=== PATIENT | female | born 1930 | race Caucasian/White ===

== ENCOUNTER 2016-08-23 19:05 | Inpatient (IN) | payer MEDICARE, OTHER ==
[2016-08-23 19:27] LABS: Hematocrit 34 % (35-47); Mean Corpuscular HGB Conc 32 g/dl (31-36); Mean Corpuscular Hemoglobin 28 pg (27-31); Mean Corpuscular Volume 88 fL (80-97); Mean Platelet Volume 8 um3 (7.4-10.4); Red Blood Count 3.87 10^6/ul (4.0-5.4); Red Cell Distribution Width 14 % (10.5-15); White Blood Count 8.1 10^3/ul (3.5-10.8)
--- NOTE | 2016-08-23 19:29 | RAD ---
INDICATION: Aphasia COMPARISON: CT of the brain dated April 12, 2012 TECHNIQUE: Contiguous axial sections of the brain were obtained from the skull base to the vertex without contrast. FINDINGS: There is a stable focus of and supplemented malacia involving the right frontal lobe measuring 3.4 x 3.5 cm, slightly larger than the 2.8 x 2.9 cm measured on the previous CT examination. At the medial aspect of the left frontal lobe there is an area of cortical encephalomalacia measuring 1.7 cm that was not seen on the previous CT examination. At the anterior aspect of the right insular gyri (image 12 of 32) there is an 8 mm hypoattenuating focus stable compared to the previous CT examination. Elsewhere the everett-white matter differentiation appears to be adequately maintained. There is no hyperdense material to indicate acute intracranial hemorrhage. There is mild involutional changes of the ventricles and sulci somewhat appearance to the previous CT examination. Calcified atherosclerosis is noted at the left greater than right vertebral arteries and the bilateral petrous carotid arteries. No significant focal osseous abnormality is present. The visualized portion of the paranasal sinuses and mastoid air cells appear clear. IMPRESSION: There is a new 7 mm focus of cortical hypoattenuation involving the medial aspect of the left frontal lobe that was not seen on the 2012 CT of the brain that could represent an age indeterminant infarction. Chronic findings include stable areas of encephalomalacia and involutional changes. There is no acute intracranial hemorrhage identified. Findings were discussed with Dr. Landers over the telephone at 1925 hours on August 23, 2016.
[2016-08-23 19:42] LABS: Albumin 4.2 g/dL (3.2-5.2); BUN/Creatinine Ratio 28.8 (8-20); Calcium 9.8 mg/dL (8.6-10.3); EGFR African American 124.9 (>60); EGFR Non-African American 97.1 (>60); HDL Cholesterol 59.7 mg/dL; Potassium 3.8 mmol/L (3.5-5.0); Total Bilirubin 0.5 mg/dL (0.2-1.0); Total Protein 7.2 g/dL (6.4-8.9)
[2016-08-23 19:46] LABS: Troponin I 0.04 ng/mL (<0.04)
[2016-08-23 19:49] LABS: Urine Bacteria Absent (Absent); Urine Bilirubin Negative (Negative); Urine Glucose Negative (Negative); Urine Nitrite Negative (Negative)
[2016-08-23] MEDS ORDERED: Iohexol 350* (CONTRAST) 500 ML MDV IV ONE (19:57)
--- NOTE | 2016-08-23 19:57 | RAD ---
INDICATION: Aphasia COMPARISON: Similar chest x-ray dated July 28, 2010 TECHNIQUE: Single AP portable view of the chest was obtained. FINDINGS: Image quality is compromised due to the relative inferiority of a portable chest x-ray. Again seen is mild cardiomegaly similar in appearance to the previous chest x-ray. Also stable are coarse calcifications at the arch of the aorta. The lungs are grossly clear. There is evidence of bronchiectatic dilatation of the medium and small airways similar to the previous chest x-ray. There is no evidence of a large pleural effusion. Visualized bones are normal for the patient's age. IMPRESSION: No radiographic evidence for acute cardiopulmonary abnormality on this portable chest x-ray.
[2016-08-23] MEDS ORDERED: Ondansetron INJ* 2 MG/ML VIAL ONE (20:20)
[2016-08-23] MEDS ORDERED: Ondansetron INJ* 2 MG/ML VIAL IV ONE (20:23)
--- NOTE | 2016-08-23 20:48 | RAD ---
CPT II: CPT II Codes: 3100F INDICATION: Aphasia COMPARISON: Similar CTA of the head and neck dated July 28, 2010 TECHNIQUE: A CT angiogram of the head and neck was performed with 80 cc of Omnipaque 350. Contiguous axial sections were obtained from the thoracic inlet through the [place] of [place]. Images were reconstructed in the sagittal, coronal planes and in a 3-D volume rendered format. The distal cervical internal carotid artery diameter is used as the denominater for stenosis measurement. CTA NECK: There is calcified atherosclerosis at the arch of the aorta and proximal portions of the great vessels. The bilateral common carotid arteries are adequately patent. There is left greater than right calcified atherosclerosis at the carotid bulbs. Right: After the carotid bulb the right internal carotid artery measures 3.3 mm in diameter. More superiorly the artery measures 3.8 mm in diameter. There is indicates no significant stenosis. Left: Just beyond the carotid bulb the left internal carotid artery measures 6 mm at its narrowest portion and 6 mm more distally. This indicates no pathologic stenosis of the left internal carotid artery. The right vertebral artery is diminutive relative to the left but both arteries appear patent throughout their entire lengths continuing into the diminutive but patent basilar artery. CTA of the brain: The internal carotid, anterior and middle cerebral arteries appear are patent without high grade stenosis or occlusion. The vertebral, basilar and posterior cerebral arteries appear patent without high grade stenosis or occlusion. A right posterior communicating and anterior communicating arteries are absent. No focal luminal filling defect, aneurysm or vascular malformation is seen. IMPRESSION: 1. No acute abnormality on CT angiography of the head and neck. 2. According to thoracic criteria there is no pathologic carotid artery stenosis bilaterally.
[2016-08-23] MEDS ORDERED: Aspirin TAB* 325 MG PO ONE (20:50)
--- NOTE | 2016-08-23 20:56 | ED ---
Alexandre Quesada Erika, scribed for Bahman Landers MD on 08/23/16 at 1930 . Neurological HPI - HPI Summary HPI Summary: Patient is an 86-year-old female presenting to the ED with a CC of slurred speech. Pt lives alone, but states her last known well time to be 15:00 today. Per EMS, pt called her nephew around 18:30 today and he could not understand what she was saying and called 911. EMS and nephew arrived to the house at the same time. EMS noted slurred speech and a right-sided facial droop, as well as some right-sided weakness. - History of Current Complaint Stated Complaint: POSSIBLE STROKE Last Known Well Date: 15:00 08/23/2016 Hx Obtained From: Patient, EMS Onset/Duration: Started hours ago, Still Present Timing: Constant Current Severity: Moderate Character: Motor Weakness - R side, Impaired Speech, Other: - R sided facial droop Aggravating: Nothing Alleviating: Nothing Associated Signs and Symptoms: Positive: Impaired Speech - Allergy/Home Medications Allergies/Adverse Reactions: Allergies Allergy/AdvReac Type Severity Reaction Status Date / Time No Known Allergies Allergy Verified 09/17/14 08:55 PMH/Surg Hx/FS Hx/Imm Hx Cardiovascular History: Reports: Hx Hypertension - WELL CONTROLLED, Other Cardiovascular Problems/Disorders Musculoskeletal History: Reports: Hx Arthritis - HANDS Sensory History: Reports: Hx Cataracts, Hx Contacts or Glasses Denies: Hx Hearing Aid Opthamlomology History: Reports: Hx Cataracts, Hx Contacts or Glasses Neurological History: Reports: Hx Migraine - RARELY Psychiatric History: Reports: Hx Anxiety - ON DAILY MEDS, Hx Depression - Surgical History Surgery Procedure, Year, and Place: LEFT BREAST MASS, BENIGN [facility]. 09/27 LEFT CATARACT [facility] Hx Anesthesia Reactions: No - Family History Family History: Denies FHx anesthesia reaction - Social History Lives: Alone Alcohol Use: None Hx Substance Use: No Substance Use Type: Reports: None Hx Tobacco Use: No Smoking Status (MU): Never Smoked Tobacco Have You Smoked in the Last Year: No Review of Systems Positive: Other - R sided facial droop Positive: Weakness - R side, Slurred Speech All Other Systems Reviewed And Are Negative: Yes Physical Exam Triage Information Reviewed: Yes Vital Signs On Initial Exam: Initial Vitals Pulse Ox 98 08/23/16 19:06 Vital Signs Reviewed: Yes Appearance: Positive: Well-Appearing, No Pain Distress Skin: Positive: Warm, Skin Color Reflects Adequate Perfusion, Dry Head/Face: Positive: Normal Head/Face Inspection Eyes: Positive: EOMI, MATEO ENT: Positive: Normal ENT inspection Neck: Positive: Supple, Nontender Respiratory/Lung Sounds: Positive: Clear to Auscultation, Breath Sounds Present Cardiovascular: Positive: RRR Abdomen Description: Positive: Nontender, Soft Bowel Sounds: Positive: Present Neurological: Positive: Other - See NIH Stroke Scale Psychiatric: Positive: Affect/Mood Appropriate Diagnostics - Vital Signs Vital Signs Pulse Ox 08/23/16 19:06 98 - Laboratory Lab Results: Lab Results 08/23/16 08/23/16 08/23/16 Range/Units 19:19 19:19 19:19 WBC 8.1 (3.5-10.8) 10^3/ul RBC 3.87 L (4.0-5.4) 10^6/ul Hgb 11.0 L (12.0-16.0) g/dl Hct 34 L (35-47) % MCV 88 (80-97) fL MCH 28 (27-31) pg MCHC 32 (31-36) g/dl RDW 14 (10.5-15) % Plt Count 337 (150-450) 10^3/ul MPV 8 (7.4-10.4) um3 Neut % (Auto) 72.9 (38-83) % Lymph % (Auto) 21.0 L (25-47) % Rankin % (Auto) 4.8 (1-9) % Eos % (Auto) 0.8 (0-6) % Baso % (Auto) 0.5 (0-2) % Absolute Neuts (auto) 5.9 (1.5-7.7) 10^3/ul Absolute Lymphs (auto) 1.7 (1.0-4.8) 10^3/ul Absolute Monos (auto) 0.4 (0-0.8) 10^3/ul Absolute Eos (auto) 0.1 (0-0.6) 10^3/ul Absolute Basos (auto) 0 (0-0.2) 10^3/ul Absolute Nucleated RBC 0 10^3/ul Nucleated RBC % 0 INR (Anticoag Therapy) 2.39 H (0.89-1.11) APTT 32.7 (26.0-36.3) seconds Sodium 138 (133-145) mmol/L Potassium 3.8 (3.5-5.0) mmol/L Chloride 102 (101-111) mmol/L Carbon Dioxide 27 (22-32) mmol/L Anion Gap 9 (2-11) mmol/L BUN 17 (6-24) mg/dL Creatinine 0.59 (0.51-0.95) mg/dL Est GFR ( Amer) 124.9 (>60) Est GFR (Non-Af Amer) 97.1 (>60) BUN/Creatinine Ratio 28.8 H (8-20) Glucose 119 H (70-100) mg/dL Lactic Acid (0.5-2.0) mmol/L Calcium 9.8 (8.6-10.3) mg/dL Total Bilirubin 0.50 (0.2-1.0) mg/dL AST 20 (13-39) U/L ALT 15 (7-52) U/L Alkaline Phosphatase 64 (34-104) U/L Troponin I 0.04 H* (<0.04) ng/mL Total Protein 7.2 (6.4-8.9) g/dL Albumin 4.2 (3.2-5.2) g/dL Globulin 3.0 (2-4) g/dL Albumin/Globulin Ratio 1.4 (1-3) Triglycerides 62 mg/dL Cholesterol 227 mg/dL LDL Cholesterol 155 mg/dL HDL Cholesterol 59.7 mg/dL Urine Color Urine Appearance Urine pH (5-9) Ur Specific Spencer (1.010-1.030) Urine Protein (Negative) Urine Ketones (Negative) Urine Blood (Negative) Urine Nitrate (Negative) Urine Bilirubin (Negative) Urine Urobilinogen (Negative) Ur Leukocyte Esterase (Negative) Urine WBC (Auto) (Absent) Urine RBC (Auto) (Absent) Ur Squamous Epith Cells (Absent) Urine Bacteria (Absent) Urine Glucose (Negative) Blood Type Antibody Screen 08/23/16 08/23/16 08/23/16 Range/Units 19:19 19:19 19:30 WBC (3.5-10.8) 10^3/ul RBC (4.0-5.4) 10^6/ul Hgb (12.0-16.0) g/dl Hct (35-47) % MCV (80-97) fL MCH (27-31) pg MCHC (31-36) g/dl RDW (10.5-15) % Plt Count (150-450) 10^3/ul MPV (7.4-10.4) um3 Neut % (Auto) (38-83) % Lymph % (Auto) (25-47) % Rankin % (Auto) (1-9) % Eos % (Auto) (0-6) % Baso % (Auto) (0-2) % Absolute Neuts (auto) (1.5-7.7) 10^3/ul Absolute Lymphs (auto) (1.0-4.8) 10^3/ul Absolute Monos (auto) (0-0.8) 10^3/ul Absolute Eos (auto) (0-0.6) 10^3/ul Absolute Basos (auto) (0-0.2) 10^3/ul Absolute Nucleated RBC 10^3/ul Nucleated RBC % INR (Anticoag Therapy) (0.89-1.11) APTT (26.0-36.3) seconds Sodium (133-145) mmol/L Potassium (3.5-5.0) mmol/L Chloride (101-111) mmol/L Carbon Dioxide (22-32) mmol/L Anion Gap (2-11) mmol/L BUN (6-24) mg/dL Creatinine (0.51-0.95) mg/dL Est GFR ( Amer) (>60) Est GFR (Non-Af Amer) (>60) BUN/Creatinine Ratio (8-20) Glucose (70-100) mg/dL Lactic Acid 0.9 (0.5-2.0) mmol/L Calcium (8.6-10.3) mg/dL Total Bilirubin (0.2-1.0) mg/dL AST (13-39) U/L ALT (7-52) U/L Alkaline Phosphatase (34-104) U/L Troponin I (<0.04) ng/mL Total Protein (6.4-8.9) g/dL Albumin (3.2-5.2) g/dL Globulin (2-4) g/dL Albumin/Globulin Ratio (1-3) Triglycerides mg/dL Cholesterol mg/dL LDL Cholesterol mg/dL HDL Cholesterol mg/dL Urine Color Yellow Urine Appearance Clear Urine pH 5.0 (5-9) Ur Specific Spencer 1.020 (1.010-1.030) Urine Protein Negative (Negative) Urine Ketones Negative (Negative) Urine Blood 1+ H (Negative) Urine Nitrate Negative (Negative) Urine Bilirubin Negative (Negative) Urine Urobilinogen Negative (Negative) Ur Leukocyte Esterase Negative (Negative) Urine WBC (Auto) Absent (Absent) Urine RBC (Auto) 2+(6-10/hpf) H (Absent) Ur Squamous Epith Cells Present H (Absent) Urine Bacteria Absent (Absent) Urine Glucose Negative (Negative) Blood Type O Positive Antibody Screen Negative Result Diagrams: 08/23/16 19:19 08/23/16 19:19 Lab Statement: Any lab studies that have been ordered have been reviewed, and results considered in the medical decision making process. - Radiology CXR Radiology Interpretation Completed By: Radiologist - IMPRESSION: No radiographic evidence for acute cardiopulmonary abnormality on this portable chest x-ray. - CT CT Brain CT Interpretation Completed By: Radiologist - IMPRESSION: There is a new 7 mm focus of cortical hypoattenuation involving the medial aspect of the left frontal lobe that was not seen on the 2012 CT of the brain that could represent an age indeterminant infarction. Chronic findings include stable areas of encephalomalacia and involutional changes. There is no acute intracranial hemorrhage identified. Findings were discussed with Dr. Landers over the telephone at 1925 hours on August 23, 2016. - EKG 19:14 Cardiac Rate: NL - at 66 bpm EKG Rhythm: Sinus Rhythm Ectopy: None EKG Interpretation: Borderline left axis deviation. Flipped Ts V5-V6 NIH Scale - NIH Scale Level of Consciousness: Alert/Keenly Responsive Ask Patient the Month and His/Her Age: Both Correct Ask Pt to Open/Close Eyes and Marker Machine/Release Non-Paretic Hand: Both Correctly Best Gaze (Only Horizontal Eye Movement): Normal Visual Field Testing: No Visual Loss Facial Paresis-Pt to Smile & Close Eyes or Grimace Symmetry: Partial Paralysis - right Motor Function - Right Arm: Effort Against Spencer Motor Function - Left Arm: No Drift-Holds 10 Seconds Motor Function - Left Leg: No Drift-Holds 10 Seconds Sensory (Use Pinprick to Test Arms/Legs/Trunk/Face): Pinprick Less on Affected Best Language (Describe Picture, Name Items): Severe Aphasia Dysarthria (Read Several Words): Unintelligible or Mute Extinction and Inattention: No Abnormality Course/Dx - Course Assessment/Plan: DISCUSSED WITH DR FRENCH. DISCUSSED RESULTS WITH PATIENT/SON. ADMIT HOSPITALIST STABLE. - Diagnoses Provider Diagnoses: CVA (cerebral vascular accident) - Physician Notifications Discussed Care of Patient With: Dr. French (neurology) at 19:10 - discussed pt history and recommendations. Dr. Espinal (radiology) at 19:25 - discussed imaging results Discharge - Discharge Plan Condition: Stable Disposition: ADMITTED TO [facility] Referrals: Mireya Finnegan MD [Primary Care Provider] - The documentation as recorded by the Alexandre william Erika accurately reflects the service I personally performed and the decisions made by me, Bahman Landers MD.
[2016-08-23] MEDS ORDERED: Dextrose 50% Syringe 50 ML* 25 GM/50 ML SYRINGE IV PUSH PRN (21:17)
[2016-08-23] MEDS: NS 0.9% 1000 ML* 1,000 ML IV SCH (22:40)
--- NOTE | 2016-08-23 23:10 | HP ---
HOSPITAL MEDICINE HISTORY AND PHYSICAL: DATE OF ADMISSION: 08/23/16 PRIMARY CARE PHYSICIAN: Dr. Mireya Finnegan. ATTENDING PHYSICIAN: Dr. Lorenzo Edwards *(dictation provided by Valerie Castillo NP). CHIEF COMPLAINT: Difficulty speaking and right-sided weakness. HISTORY OF PRESENT ILLNESS: Ms. Martinez is an 86-year-old female with a past medical history of atrial fibrillation, atrial septal defect, diet-controlled diabetes, and hypertension, who presents today to the hospital with concern for difficulty speaking and right-sided weakness. Per the report from the patient' s nephew, who is her healthcare proxy, he was called by her at approximately 06: 20 and while on the phone with her he noted that she was speaking unintelligibly. The patient's nephew states that he knew that she had a stroke in the past with similar symptoms and immediately was concerned for stroke. He went to her home and then drove her to the emergency room. While at the home, he noted that she was walking normally but that her right hand was not functioning properly and she was unable to hot die picker the phone. She was unable to speak clearly or make her needs known. He states the last time he saw her normal was yesterday, but since her speech has improved somewhat since being in the emergency room she seems to have indicated to him that she went to get her hair done today around 2 o'clock and was normal at that point. In the emergency room, Ms. Martinez had concern for stroke with aphasia. She was initially speaking gibberish but over the course of the time in the ED, she has been able to say several words in a row, although she is not able to make sentences or make her needs known clearly. She has continued impairment in her right credit counselor but her arm and leg are otherwise intact in terms of strength and sensation. She has CT of the brain, which shows the following: "There is a new 7 mm focus of cortical hypoattenuation involving the medial aspect of the left frontal lobe." She also went on for a head CTA, which showed no acute abnormality. The patient was given aspirin per rectum and Hospital Medicine was called regarding admission. Dr. French has also been notified of this admission as well for consultation tomorrow. PAST MEDICAL HISTORY: 1. Hypertension. 2. Atrial septal defect with left to right shutting. 3. History of CVA with aphasia, July 2010. 4. Chronic Coumadin therapy secondary to previous stroke with AFib. 5. Hyperlipidemia. 6. History of depression, anxiety. 7. Aortic sclerosis. 8. Mitral insufficiency. 9. Type 2 diabetes, diet controlled. 10. Osteoarthritis. 11. Varicose veins. 12. Peripheral vascular disease. 13. Low back pain. 14. Stress incontinence. 15. Indication for pacemaker placement as the patient states Dr. Corona has instructed to her that she should follow up with this. 16. Previous cataract surgery of the left eye. 17. Status post left breast cyst excision in 1994 benign. MEDICATIONS: 1. Rosuvastatin 5 mg p.o. daily. 2. Digoxin 0.125 mg p.o. daily. 3. Lexapro 10 mg p.o. daily. 4. Metoprolol tartrate 12.5 mg p.o. b.i.d. 5. Warfarin 5 mg p.o. q.a.m. ALLERGIES: No known drug allergies. FAMILY HISTORY: Unobtainable. SOCIAL HISTORY: No report of alcohol, tobacco, or drug use per the patient's nephew. He is the healthcare proxy. REVIEW OF SYSTEMS: Unobtainable. No report of acute illnesses recently per the nephew. PHYSICAL EXAMINATION GENERAL: Ms. Martinez is lying in the bed. She is in no acute distress. LUNGS: Clear to auscultation bilaterally with no accessory muscle use and good aeration. HEART: S1, S2. No murmur, rub, or gallop and regular. ABDOMEN: Soft, nontender with bowel sounds positive x4. EXTREMITIES: No cyanosis or edema. NEUROLOGIC: She is alert. Orientation is difficult to completely assess but she seems to interact appropriately though she is not able to clearly make her thoughts known. She is able to say 2 to 3 words in a row as she begins to speak and then she trails off with unclear speech. The patient has good strength in upper extremities except for the right hand where she is unable to straighten the fingers and has poor credit counselor. The right lower extremity and left lower extremity are intact. She has some right-sided facial droop. SKIN: Intact. DIAGNOSTIC STUDIES: Sodium 138, potassium 3.8, chloride 102, serum bicarbonate 27, BUN 17, creatinine 0.59, glucose 119, lactic acid 0.9. Troponin 0.04. Triglycerides 62, cholesterol 227, LDL 155, HDL 59.7. WBC 8.1, hemoglobin 11.0, hematocrit 34, platelet count 337. INR 2.39. Urine shows no evidence of infection. CT brain readings which is as follows: "There is a new 7 mm focus of cortical hypoattenuation involving the medial aspect of the left frontal lobe that is not seen on 2012 CT of the brain that could represent age indeterminate infarction." CTA of the head is as follows: "No acute abnormality of CT angiograph of the head and neck according to NASCET criteria, there is no pathological carotid artery stenosis bilaterally." Chest x-ray: "No radiographic evidence for acute cardiopulmonary abnormality on this portable chest x-ray." EKG showed sinus rhythm with no evidence of ischemia. ASSESSMENT: Ms. Martinez is an 86-year-old female with past medical history of atrial fibrillation with known atrial septal defect, hypertension, and history of diabetes as well as aphasia with stroke in 2009, who presents to the emergency room with dysphagia with some improvement as well as right hand weakness. Plans are for admission to the hospital for the followin. Cerebrovascular accident: The patient's symptoms are consistent with a cerebrovascular accident. She does show an area of hypoattenuation on the CT of the brain, but again the age on that is indeterminate. Her CTA of the head and neck is negative. Dr. French has been consulted and will see the patient tomorrow. In the meantime, MRI of the brain has been ordered. The patient will have telemetry monitoring. I do note the patient had a transthoracic echocardiogram in January 2016. She does have history of atrial septal defect per the record. I plan to reassess with repeat echocardiogram given the new symptoms of stroke and to evaluate for vegetation. I do note that her INR is at least at this point therapeutic. The patient has been given aspirin in the emergency room and will continue that per rectum for now until she passes the swallow eval. She will continue with her Coumadin. Cholesterol has been checked. We will continue with atorvastatin in substitute for rosuvastatin. I am checking hemoglobin A1c to further evaluate her risk factors. She will have speech, physical, and occupational therapy evaluations. 2. Elevated troponin. Her troponin on arrival was 0.04. I have no indication that this reflects acute coronary syndrome as she denies chest pain and her EKG shows no evidence of ischemia. I will cycle troponins and she will continue with telemetry monitoring as per above. In addition, she will have an echocardiogram as part of her stroke workup. 2. Hypertension: Continue metoprolol. 3. Atrial fibrillation: Continue digoxin. Continue warfarin. I do note that the patient states that Dr. Corona had recommended her for pacemaker placement. We will have to obtain records tomorrow to determine what the indication was there. At this point, her heart is in a sinus rhythm with a regular rate. 4. Type 2 diabetes: The patient is not currently on any outpatient medications. I am checking hemoglobin A1c. She will have lispro sliding scale, blood glucoses q.a.c. This can be discontinued if her blood glucose remains normal. 5. Code status: Full code. 6. DVT prophylaxis with warfarin with therapeutic INR. TIME SPENT: Approximately 60 minutes were spent on the admission of this patient; more than half the time was spent with her at the bedside reviewing the events leading up to this hospitalization, also with her nephew performing the physical examination, reviewing the plan of care. VALERIE CASTILLO NP CC: Dr. Corona; Dr. Mireya Finnegan * [id number]/[facility] #: [id number] KARIN
--- NOTE | 2016-08-24 00:40 | PN ---
Progress Note - Progress Note Note: Mrs Martinez is an 86F presenting with symptoms consistent for CVA. Case discussed with Rocio Castillo NP. Agree with assessment and management.
[2016-08-24 05:25] LABS: Hematocrit 32 % (35-47); Hemoglobin 10.5 g/dl (12.0-16.0); Mean Corpuscular HGB Conc 33 g/dl (31-36); Mean Corpuscular Hemoglobin 29 pg (27-31); Mean Corpuscular Volume 87 fL (80-97); Mean Platelet Volume 9 um3 (7.4-10.4); Red Blood Count 3.64 10^6/ul (4.0-5.4); Red Cell Distribution Width 14 % (10.5-15); White Blood Count 7.7 10^3/ul (3.5-10.8)
[2016-08-24 05:46] LABS: BUN/Creatinine Ratio 20.3 (8-20); Calcium 8.8 mg/dL (8.6-10.3); EGFR African American 124.9 (>60); EGFR Non-African American 97.1 (>60); Potassium 3.7 mmol/L (3.5-5.0)
[2016-08-24 05:50] LABS: Troponin I 0.06 ng/mL (<0.04)
[2016-08-24] MEDS: NS 0.9% 1000 ML* 1,000 ML IV SCH (06:20)
[2016-08-24] MEDS: Insulin LISPRO* 1 UNITS UNIT SUBCUT SCH ×3 (08:49→16:41)
[2016-08-24] MEDS ORDERED: Aspirin SUPP* 300 MG PR SCH ×2 (09:00→21:00)
[2016-08-24] MEDS ORDERED: Digoxin TAB* 0.125 MG PO SCH ×2 (09:00)
[2016-08-24] MEDS ORDERED: Metoprolol Tartrate TAB* 25 MG PO SCH ×2 (09:00→18:00)
[2016-08-24] MEDS: CMC:Rosuvastatin (NF) 5 MG TAB PO SCH (10:10)
[2016-08-24] MEDS: Citalopram TAB* 20 MG PO SCH (10:10)
[2016-08-24] MEDS: Metoprolol Tartrate TAB* 25 MG PO SCH (10:11)
--- NOTE | 2016-08-24 12:06 | ECHO ---
Patient: TREV VELASCO [facility] Rec#: [id number] : 1930 Date: 08/24/2016 Age: 86y Height: 152.4 cm / 60.0 in Weight: 63.05 kg / 139.0 lbs Sex: F Admit Date#: 08/23/2016 Referring: Valerie Castillo NP Reading: Rhianna Malagon MD [place] Bender: An Elliott RDCS CC: Mireya Finnegan MD Transthoracic Echocardiogram Findings History: A-fib,CVA 2009,ASD(L-R shunting),HTN,PVD,HLD,DM, aphasia noted 08/23/2016. Technical Comments: The study quality is good. Completed at 0852. Left Ventricle: The left ventricular chamber size is normal. Posterior wall hypertrophy is observed. There is normal left ventricular systolic function. The estimated ejection fraction is 55-60%. The assessment of diastolic function is non-diagnostic. Left Atrium: The left atrium is severely dilated. Right Ventricle: The right ventricular cavity size is normal. The right ventricular global systolic function is normal. Right Atrium: The right atrium is moderately dilated. There is a patent foramen ovale with predominant alxw-lm-vttmd shunting. Aortic Valve: The aortic valve is trileaflet. The aortic valve leaflets are moderately thickened. Systolic excursion of the aortic valve cusps is reduced. There is trace to mild aortic regurgitation. There is mild aortic stenosis. The highest aortic valve velocity was obtained with the standard probe from the A5C view. Mitral Valve: The mitral valve leaflets are moderately thickened. There is moderate mitral regurgitation. There is no evidence of mitral stenosis. Tricuspid Valve: The tricuspid valve leaflets are normal. There is mild to moderate tricuspid regurgitation. There is evidence that pulmonary hypertension may be underestimated. There is no tricuspid stenosis. Pulmonic Valve: The pulmonic valve appears normal. There is no evidence of pulmonic regurgitation. There is no pulmonic stenosis. Pericardium: The pericardium appears normal. Aorta: There is no dilatation of the ascending aorta. There is no dilatation of the aortic arch. There is no dilation of the aortic root. Pulmonary Artery: The main pulmonary artery appears normal. Venous: The inferior vena cava appears normal in size. There is a greater than 50% respiratory change in the inferior vena cava dimension. Conclusions Left ventricular posterior wall hypertrophy noted. There is normal left ventricular systolic function. The estimated ejection fraction is 55-60%. The right ventricular global systolic function is normal. There is mild aortic stenosis and mild aortic valve insufficiency with calcific sclerosis and decreased leaflet excursion. Mean gradient across the aortic valve is 11 mmHg, KASHMIR 1.6 cm2 (VTI). There is moderate mitral regurgitation, leaflets sclerotic with good excursion. There is mild to moderate tricuspid regurgitation. PA pressure 35 mmHg at a minimum, possibly underestimated. Coloer Doppler shows evidence of a patent foramen ovale with zjzv-mm-jihaz shunting. Compared with prior echo of February 03, 2016, ventricular hypertrophy less pronounced, KASHMIR unchanged, AI is stable, the degree of MR and TR have increased, the PFO/ASD not described on the prior study. Measurements Name Value Normal Range RVIDd (AP) 2D 3.7 cm (0.9 - 2.6) RVDdMajor (2D) 4.1 cm (2.2 - 4.4) RAd ISD 4CH 6.4 cm (3.4 - 4.9) RA (A4C)W 4.6 cm (2.9 - 4.6) IVSd (2D) 1 cm (0.6 - 1) LVPWd (2D) 1.3 cm (0.6 - 1) LVIDd (2D) 3.6 cm (3.6 - 5.4) LVIDs (2D) 2.1 cm - LV FS (2D) 41 % (25 - 45) Aortic Annulus 1.9 cm (1.4 - 2.6) Ao root diameter (2D) 2.9 cm (2.1 - 3.5) Ascending Ao 2.9 cm (2.1 - 3.4) Aortic arch 2.8 cm (1.8 - 3.4) LA dimension (AP) 2D 3.9 cm (2.3 - 3.8) LAd ISD 4CH 7.1 cm (2.9 - 5.3) LA ISD 4CH W 5.4 cm (2.5 - 4.5) Name Value Normal Range LA ESV SP 4CH (A/L) 115 ml - LA ESV SP 2CH (A/L) 109 ml - LA ESV BP (A/L) 115 ml - LA ESV BP (A/L) index 71.86 ml/m2 - LA ESV SP 4CH (MOD) 111 ml - LA ESV SP 2CH (MOD) 105 ml - Name Value Normal Range MV E-wave Vmax 1 m/sec - MV deceleration time 200 msec - LV septal e' Vmax 0.06 m/sec - LV lateral e' Vmax 0.1 m/sec - LV E:e' septal ratio 16.67 ratio - LV E:e' lateral ratio 10 ratio - Name Value Normal Range AV Vmax 2.3 m/sec - AV VTI 52.8 cm - AV peak gradient 21.87 mmHg - AV mean gradient 10.88 mmHg - LVOT diameter 1.9 cm - LVOT Vmax 1.4 m/sec - LVOT VTI 32 cm - LVOT peak gradient 7.54 mmHg - LVOT mean gradient 3.46 mmHg - SV LVOT 86 ml - KASHMIR (continuity Vmax) 1.7 cm2 - KASHMIR (continuity VTI) 1.6 cm2 - AR PHT 469 msec - AR peak gradient 43.41 mmHg - Name Value Normal Range TR Vmax 2.8 m/sec - TR peak gradient 32 mmHg - RAP 3 mmHg - RVSP 35 mmHg - IVC diameter 1.7 cm - Name Value Normal Range PV Vmax 1.2 m/sec - PV peak gradient 5.33 mmHg -
--- NOTE | 2016-08-24 12:57 | CONS ---
CONSULTATION REPORT: DATE OF CONSULT/DICTATION: 08/24/16 PATIENT OF: Mireya Finnegan MD HISTORY OF PRESENT ILLNESS: This is an 86-year-old woman I am asked to evaluate for a TIA. She was in her usual state of health yesterday afternoon when at about 3 o'clock, she had some fuzziness of her vision in all gonzalez. She was watching TV at that time and got up and spoke to her cat and she began alarmed that it was gibberish, so she then tried to contact her nephew and had trouble finding his phone number and eventually contacted him and he had an ambulance bring her to the emergency room. She was also found to have an aphasia in the emergency room as well as some right-sided weakness. She was not a tPA candidate because she was on warfarin and because last known well before she first noticed her speech deficit, it was hard to get an exact time __ ____ 2:30 time of speech problems. By the time I was contacted, this approaching the outer limit of one we would consider intervention and she may have been normal at 2 o'clock when she went to get her hair done but that was not entirely clear even last night. PAST MEDICAL AND SURGICAL HISTORY: She has had a prior history of stroke in 2009 and she had aphasia at that point. She has atrial fibrillation. She has hypertension and ASD with wpkm-ae-gciis shunting. She has hyperlipidemia; history of depression; anxiety; aortic sclerosis; mitral insufficiency; type 2 diabetes, diet controlled; osteoarthritis; varicose veins; peripheral vascular disease; low back pain; stress incontinence; previous cataract surgery; status post left breast cyst excision. MEDICINES: Include: 1. Rosuvastatin 5 mg daily. 2. Digoxin 0.125. 3. Lexapro 10 mg daily. 4. Metoprolol 12.5 b.i.d. 5. Warfarin 5 mg q.a.m. ALLERGIES: She has no known drug allergies. FAMILY HISTORY: She does not remember any history of a stroke. SOCIAL HISTORY: She does not smoke, drink, or use drugs. REVIEW OF SYSTEMS: Negative in all 14 spheres. PHYSICAL EXAM: Temp 98.2, pulse 58, respirations 16, blood pressure 146/42. She is alert and oriented with normal speech and comprehension. She feels her speech is back to normal at this point. Cranial nerves II through XII are intact. Fundi showed sharp discs. Motor exam revealed normal tone and strength. She has slight pronator drift on the left, not the right. Sensation intact to light touch. Reflexes were 1 and equal. Toes were downgoing. Neck was supple. Chest: Clear. Cardiovascular: Regular rate and rhythm. Abdomen: Soft with positive bowel sounds. DIAGNOSTIC STUDIES/LAB DATA: Her CTA showed no significant carotid stenosis or pathological findings, is unchanged from the [address] scan was reviewed and showed left frontal lobe hypodense lesion that is new since the study of 2011 and thought to represent an age-indeterminate stroke. She also has areas of encephalomalacia in the right insula with some mild atrophy. Labs include white count 7.7, hematocrit 32, platelets of 310. INR 2.39, PTT 32.7. Chemistries were normal other than glucose of 119. Troponin 0.06. LDL 155. IMPRESSION AND PLAN: Mariza most likely had a transient ischemic attack secondary to atrial fibrillation despite the warfarin and Dr. Finnegan was addressing. Her LDL is somewhat high, but I do not think that this is the mechanism of her new symptoms and defer to Dr. Finnegan how further to treat. I would recommend starting off with a fasting lipid profile --one done yesterday looks like it was done in the emergency room. Finally, it is unclear with her past history of aphasia whether it could have been seizure with postictal aphasia rather than a new transient ischemic attack in the distribution of her old one and it will be reasonable to check an EEG, but much more likely this is a vascular event rather than a seizure with postictal period. Thank you for sharing her case. [id number]/[facility] #: [id number] KARIN
--- NOTE | 2016-08-24 13:09 | RAD ---
HISTORY: Dysphasia, right-sided weakness COMPARISONS: Head CT dated August 23, 2016, MRI dated April 29, 2010 TECHNIQUE: The following sequences were obtained of the head: Sagittal T1-weighted images, axial T2-weighted images, axial FLAIR images, axial susceptibility weighted images, axial T1-weighted images. Additionally, axial diffusion-weighted images were obtained with calculated apparent diffusion coefficients. FINDINGS: HEMORRHAGE/INFARCT: There is no hemorrhage or acute infarct. MASSES/SHIFT: There is no mass or shift. 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 SULCI AND VENTRICLES: The sulci and ventricles are normal in size and position for the patient's stated age. CEREBRUM: There is stable encephalomalacia of the left lobe at the level of the frontal operculum and anterior insula. There are small areas of inflammation within the left superior frontal gyrus and right inferior frontal gyrus consistent with remote infarct, when compared to 2010. BRAINSTEM: There are no focal parenchymal abnormalities. CEREBELLUM: There is a chronic appearing infarct of the right inferior cerebellar hemisphere. The cerebellar tonsils are normal in size and position. SELLA: The sella is normal. PINEAL: The pineal region is clear. CP ANGLE/TEMPORAL BONES: The labyrinthine structures are grossly normal. VESSELS: Normal flow-voids are noted within the visualized vertebral vasculature. DIFFUSION ABNORMALITIES: There are no diffusion abnormalities. PARANASAL SINUSES/MASTOIDS: The paranasal sinuses are clear. ORBITS: The orbits are unremarkable. BONES AND SOFT TISSUE: No bone or soft tissue abnormalities are noted. OTHER: None IMPRESSION: 1. FINDINGS CONSISTENT WITH MULTIPLE AREAS OF REMOTE INFARCT. 2. NO RESTRICTED DIFFUSION TO SUGGEST ACUTE INFARCT.
[2016-08-24] MEDS ORDERED: Warfarin TAB(*) 5 MG PO SCH (17:00)
[2016-08-24] MEDS ORDERED: Atorvastatin* 10 MG TAB PO SCH (17:00)
--- NOTE | 2016-08-25 02:09 | EEG ---
ELECTROENCEPHALOGRAPHY: DATE OF STUDY/DICTATION: 08/24/16 - ROOM #438 PATIENT OF: Dr. Mireya Finnegan.* HISTORY: This is an 86-year-old woman with a prior history of stroke causing aphasia presenting with an episode of aphasia with right-sided weakness, but the onset of the episode not witnessed by others. The study was done to evaluate for possible seizures. MEDICATIONS: Include: 1. Coumadin. 2. Lipitor. 3. Lopressor. 4. Lanoxin. 5. Celexa. 6. Aspirin. 7. Humalog. INTERPRETATION: With the patient awake, background cerebral activity consists of moderate amplitude posterior dominant 9 Hz rhythm. No activation procedures were performed. The patient never falls asleep. No epileptiform potentials, focal abnormalities, or major asymmetries of background are noted. IMPRESSION: This awake EEG is within normal limits. [id number]/[facility] #: [id number] [facility]ALTHCAREAntoni
[2016-08-25 06:00] LABS: Hematocrit 33 % (35-47); Mean Corpuscular HGB Conc 33 g/dl (31-36); Mean Corpuscular Hemoglobin 29 pg (27-31); Mean Corpuscular Volume 88 fL (80-97); Mean Platelet Volume 9 um3 (7.4-10.4); Red Blood Count 3.79 10^6/ul (4.0-5.4); Red Cell Distribution Width 14 % (10.5-15); White Blood Count 7.7 10^3/ul (3.5-10.8)
[2016-08-25 06:20] LABS: Calcium 9.3 mg/dL (8.6-10.3); EGFR African American 96.2 (>60); EGFR Non-African American 74.8 (>60); Potassium 3.9 mmol/L (3.5-5.0)
[2016-08-25 06:21] LABS: Digoxin 0.5 ng/ml (0.8-2.0)
[2016-08-25] MEDS: Insulin LISPRO* 1 UNITS UNIT SUBCUT SCH (08:42)
[2016-08-25] MEDS ORDERED: Digoxin TAB* 0.125 MG PO SCH (09:00)
[2016-08-25 09:47] VITALS: BP 144/46
[2016-08-25] MEDS: Citalopram TAB* 20 MG PO SCH (09:59)
[2016-08-25] MEDS: Metoprolol Tartrate TAB* 25 MG PO SCH (10:01)
[2016-08-25] MEDS: CMC:Rosuvastatin (NF) 5 MG TAB PO SCH (10:02)
--- NOTE | 2016-08-25 21:53 | DS ---
DISCHARGE SUMMARY: DATE OF ADMISSION: 08/23/16 DATE OF DISCHARGE: 08/25/16 DISCHARGE DIAGNOSES: 1. Transient ischemic attack. 2. Tachy-inessa syndrome. 3. History of cerebrovascular accident. 4. Hypertension. 5. History of anxiety and depression. 6. Hyperlipidemia, treated. 7. Aortic sclerosis. 8. Type 2 diabetes mellitus. 9. Osteoarthritis. 10. Peripheral vascular disease. 11. History of atrial septal defect. HISTORY: Ms. Martinez is an 86-year-old woman admitted with difficulty speaking and right-sided weakness. Please see the dictated admission note for details of the present illness, past medical history, family history, social and personal history, review of systems and physical examination. LABORATORY DATA: CBC: On 08/23/16, WBC 8.1, H and H 11/34, MCV 88, PLT 337, 000. CBC remained relatively stable throughout her hospitalization. INR 2.39, PTT 327. Chemistries on admission, sodium 138, potassium 3.8, chloride 102, CO2 27, BUN and creatinine 17/0.59, glucose 119, hemoglobin A1c 6.2%. Rest of comprehensive metabolic panel was normal. Lipids, cholesterol 227, HDL 59.7, LDL 155, troponin 0.04. Serial troponins were 0.07, 0.06. Lactic acid was normal at 0.9. Point-of- care glucoses were between 94 to 157. BMP on was stable. BMP on 08/25/16 was stable. Urinalysis, yellow, clear, specific gravity 1.020, positive for blood 1+, rbc's 2+, squamous epithelial is present. Digoxin level 0.5. Blood type O positive. IMAGING: Brain CT showed 7 mm focus of cortical hypoattenuation involving the medial aspect of the left frontal lobe, not seen on 2012 CT of the brain, possible infarct. Chest x-ray, 08/23/16, no acute disease. Head and neck CTA on 08/23/16 showed no acute abnormality. No significant carotid artery stenosis. Brain MRI, 08/24/16, showed multiple areas of remote infarct. No restricted diffusion to suggest acute infarct. EKG on 08/23/16 showed sinus rhythm, prolonged VT interval, probable left atrial enlargement, borderline left axis deviation. Other than increased VT interval, no significant change since 07/29/10. Transthoracic echocardiogram on 08/23/16 showed LVH posterior wall, normal LV function, EF 55% to 60%, mild aortic stenosis, mild aortic valve insufficiency with calcific sclerosis and decreased leaflet excursion, mean gradient 11, aortic valve area 1.6, moderate mitral regurgitation, yctb-wi-tmkynzvu tricuspid regurgitation, PA pressure 35, patent foramen ovale with left to right shunting. EEG showed no seizure focus. CONSULTATION: Neurology, Dr. French on 08/24/16, felt that she has had a TIA and wanted to rule out a seizure. EEG was done as per his recommendations. HOSPITAL COURSE: The patient was admitted. She was placed on telemetry. She had no significant arrhythmias. She remained in sinus rhythm. Her medications were continued. MRI was done as noted above. Her symptoms cleared. She got back to baseline, although she did have some confusion when woken up in the night of 08/24/16-08/25/16. Her troponin was monitored. She had no evidence of cardiac ischemia. Her blood pressure remained controlled. Her blood sugar was monitored. She was full code. Her warfarin was continued for DVT prophylaxis. At the time of discharge, she was felt to be back to baseline. She is being discharged. She will be followed by me on 08/29/16. Case was discussed with Dr. Corona, who will put in a pacemaker in about a month. I discussed the case with Dr. French who recommended adding clopidogrel. DIET: Her diet will be usual. ACTIVITY: As tolerated. MEDICATIONS: 1. Warfarin 5 mg half daily or as directed. 2. Digoxin 0.125 one alternating with 2 daily. 3. Escitalopram 10 mg once a day. 4. Toprol 25 mg half in the morning, one at night. 5. Crestor 5 mg once a day. 6. Hydrochlorothiazide 25 mg one a day. 7. Vitamin D 2000 units daily. 8. Clopidogrel 75 mg once a day. 9. Other supplements and vitamins as before. She will have an INR with her appointment on 08/29/16. CC: Dr. Corona; Dr. French* [id number]/[facility] #: [id number] [facility]
--- NOTE | 2016-11-10 00:58 | ED ---
Alexandre Quesada Erika, scribed for Bahman Landers MD on 08/23/16 at 2104 . Progress - Progress Note Progress Note: Completed NIH Stroke Scale added. See in progress note. Discussed patient care with Dr. Edwards (hospitalist) at 21:00 - agrees to admit Note that TPA not considered because onset of symptoms was uncertain and occurred more than 3 hours ago, and pt is taking coumadin. - Results/Orders Results/Orders: Head CTA Read by Radiologist - IMPRESSION: 1. No acute abnormality on CT angiography of the head and neck. 2. According to thoracic criteria there is no pathologic carotid artery stenosis bilaterally. Re-Evaluation - Re-Evaluation First Eval Re-Evaluation Time: 21:06 Comment: Discussed admission and Head CTA Course/Dx - Diagnoses Provider Diagnoses: CVA (cerebral vascular accident) NIH Scale - NIH Scale Level of Consciousness: Alert/Keenly Responsive Ask Patient the Month and His/Her Age: Both Correct Ask Pt to Open/Close Eyes and After School Program Coordinator/Release Non-Paretic Hand: Both Correctly Best Gaze (Only Horizontal Eye Movement): Normal Visual Field Testing: No Visual Loss Facial Paresis-Pt to Smile & Close Eyes or Grimace Symmetry: Partial Paralysis - right Motor Function - Right Arm: Effort Against [place] Motor Function - Left Arm: No Drift-Holds 10 Seconds Motor Function - Right Leg: No Drift-Holds 10 Seconds Motor Function - Left Leg: No Drift-Holds 10 Seconds Limb Ataxia-Must be out of Proportion to Weakness Present: Present in One Limb Sensory (Use Pinprick to Test Arms/Legs/Trunk/Face): Pinprick Less on Affected Best Language (Describe Picture, Name Items): Severe Aphasia Dysarthria (Read Several Words): Unintelligible or Mute Extinction and Inattention: No Abnormality Total Score: 10 The documentation as recorded by the Alexandre william Erika accurately reflects the service I personally performed and the decisions made by , Bahman Landers MD.
== END 2016-08-25 12:05 | disposition home or self-care (01) | DRG 69 ==
LOC: ED 19:05 → MEDTELE 21:59
PROVIDERS: ADMIT Hospitalist; ATTEND Internal Medicine Geriatric Medicine
PROC: 4A10X4Z Monitoring of Central Nervous Electrical Activity, External Approach (ICD-10-PCS; principal; 2016-08-24)
DX: G45.9 Transient cerebral ischemic attack, unspecified (principal); E11.51 Type 2 diabetes mellitus with diabetic peripheral angiopathy without gangrene; I49.5 Sick sinus syndrome; Q21.1 Atrial septal defect; I48.91 Unspecified atrial fibrillation; I08.3 Combined rheumatic disorders of mitral, aortic and tricuspid valves; G43.909 Migraine, unspecified, not intractable, without status migrainosus; F32.9 Major depressive disorder, single episode, unspecified; I10 Essential (primary) hypertension; F41.9 Anxiety disorder, unspecified; Z98.42 Cataract extraction status, left eye; E78.5 Hyperlipidemia, unspecified; M19.042 Primary osteoarthritis, left hand; M19.041 Primary osteoarthritis, right hand; R79.89 Other specified abnormal findings of blood chemistry; Z79.02 Long term (current) use of antithrombotics/antiplatelets; Z79.01 Long term (current) use of anticoagulants
CPT/HCPCS: 36415; 70450; 70496; 70498; 70551; 71010; 80048; 80053; 80061; 80162; 81003; 81015; 83036; 83605; 84484; 85025; 85027; 85610; 85730; 86850; 86900; 86901; 93005; 93306; 95816; 97530; A9270-GY; J2405; Q9967

== ENCOUNTER 2016-10-18 07:41 | Observation (INO) | payer MEDICARE, OTHER ==
[2016-10-18] MEDS ORDERED: Diazepam TAB(*) 5 MG ONE (08:40)
[2016-10-18] MEDS ORDERED: ceFAZolin 2 GM PREMIX(*) 2 GM/50 ML BAG IVPB ONE (09:00)
[2016-10-18] MEDS ORDERED: ceFAZolin VIAL 1 GM in NS *SYRINGE * * 10 ML ONE (09:00)
[2016-10-18] MEDS ORDERED: Lidocaine 1% INJ* 10 MG/ML 30 ML SDV ONE (09:23)
[2016-10-18] MEDS ORDERED: Midazolam* 1 MG/ML 5 ML VIAL (5 MG) ONE (09:24)
[2016-10-18] MEDS ORDERED: fentaNYL* 50 MCG/ML 2 ML VIAL (100 MCG VIAL) ONE (09:24)
[2016-10-18] MEDS ORDERED: Flumazenil* 0.1 MG/ML 5 ML MDV ONE (09:36)
[2016-10-18] MEDS ORDERED: Naloxone* 0.4 MG/ML 1 ML VIAL ONE (09:36)
[2016-10-18] MEDS ORDERED: Metoprolol Tartrate IV* 1 MG/ML 5 ML VIAL ONE ×2 (09:47→09:56)
[2016-10-18] MEDS ORDERED: Acetaminophen TAB* 325 MG PO PRN (10:25)
[2016-10-18] MEDS ORDERED: Al Hydrox/Mg Hydrox/Simet LIQ* 30 ML UDC PO PRN (10:31)
[2016-10-18] MEDS ORDERED: Zolpidem TAB* 5 MG PO ONE (10:32)
[2016-10-18] MEDS: oxyCODONE/Acetamin 5/325 MG* TAB PO PRN ×2 (11:47→23:17)
[2016-10-18] MEDS ORDERED: Famotidine TAB* 20 MG PO PRN (11:51)
--- NOTE | 2016-10-18 12:53 | RAD ---
INDICATION: Status post device implant. COMPARISON: Comparison is made with prior chest x-ray study from [place] 2016. TECHNIQUE: A portable view of the chest was obtained. FINDINGS: The heart appears mildly enlarged and unchanged from the prior exam. There is a dual chamber transvenous pacemaker present. The lungs are underinflated. There is minimal atelectasis at the left lung base. No pleural effusion or pneumothorax is seen on this portable study. IMPRESSION: STATUS POST POST CARDIAC PACEMAKER PLACEMENT, NO EVIDENCE FOR ACUTE FINDING.
[2016-10-18] MEDS: ceFAZolin 1 GM in Dextrose (*) 1 GM/50 ML BAG IVPB SCH (16:44)
[2016-10-18] MEDS ORDERED: Metoprolol Succinate XL TAB* 25 MG PO SCH (21:00)
--- NOTE | 2016-10-19 03:11 | OP ---
DATE OF OPERATION: 10/18/16 - ROOM #433 DATE OF : 34 SURGEON: Rosalino Corona MD ANESTHESIA: Local anesthesia with conscious sedation. PRE-OP DIAGNOSES: 1. Sick sinus syndrome. 2. Atrial fibrillation. POST-OP DIAGNOSES: 1. Sick sinus syndrome. 2. Atrial fibrillation. OPERATIVE PROCEDURE: Dual-chamber pacemaker implantation. ESTIMATED BLOOD LOSS: Nil. COMPLICATIONS: None. INDICATIONS: The patient is an 86-year-old female with a history of sick sinus syndrome and atrial fibrillation. She had episodes of AFib. Holter monitor showed normal sinus rhythm with heart rate down to 40 beats per minute. Maximization of medical therapy could not be attained without pacemaker implantation. The patient was scheduled for this procedure 5 weeks ago; however, was admitted to the hospital with a CVA, TIA at that point. This is 5 weeks later and pacemaker was recommended. DESCRIPTION OF PROCEDURE: The patient was brought to the operating room in a fasting state. Informed consent had been obtained prior to the procedure. All labs were reviewed. The patient was placed supine on the procedure table. Her left deltopectoral area was cleaned and draped in the usual fashion. 1% lidocaine was used for local anesthesia. Using ultrasound guidance, the axillary vein was entered by a modified Seldinger technique and a guidewire was placed. A second guidewire was placed with the same technique. A 4-cm incision was made in the pectoral area. Blunt dissection was carried down to the pectoral fascia. A pocket was fashioned for the pacemaker. Over the first guidewire, a 7-[place] sheath introducer was placed through which a right ventricular lead was advanced to the RV apex. The right ventricular lead was a Medtronic model 5076, serial #[id number], it had an R-wave sensitivity of 17.5, impedance 717 ohms, threshold 0.5 volts at 0.5 milliseconds. The ventricular lead was then sutured to the pectoral fascia using 0 silk. Over the second guidewire, a 7-[place] sheath introducer was placed through which a right atrial lead was advanced to the high right atrium. The right atrial lead is a Medtronic model 5076, serial #[id number], it had a P-wave sensitivity of 2.1, impedance 380 ohms, threshold could not be tested as the patient was in atrial flutter. The atrial lead was then sutured to the pectoral fascia using 0 silk. The pocket was flushed with antibiotic-infused normal saline and a generator was attached appropriately to the atrial and ventricular lead. The generator is a Hypejar model A2DR01, serial #[id number]. The device was placed into the pocket. The surgical incision was closed in 3 layers. The subcutaneous tissue was closed with 2-0 and 3-0 absorbable suture. The skin was closed with ashley. Before the sterile field was broken, an external analyzer was placed over the device and the device was interrogated. There was an attempt made at overdrive pacing in the atrium to see if we could break the atrial flutter to normal sinus rhythm. This was unsuccessful. The patient was returned to the holding area in stable condition. THIS IS AN MRI COMPATIBLE DEVICE. CC: Dr. Mireya Finnegan* [id number]/[facility] #: [id number] MTDD
[2016-10-19] MEDS ORDERED: Clopidogrel TAB* 75 MG PO SCH (09:00)
[2016-10-19] MEDS ORDERED: Metoprolol Succinate XL TAB* 25 MG PO SCH (09:00)
[2016-10-19] MEDS ORDERED: Digoxin TAB* 0.125 MG PO SCH (09:00)
[2016-10-19] MEDS ORDERED: Citalopram TAB* 20 MG PO SCH (09:00)
[2016-10-19] MEDS ORDERED: Rosuvastatin (NF) 5 MG TAB PO SCH (09:00)
--- NOTE | 2016-10-19 09:08 | RAD ---
HISTORY: Status post device implant COMPARISONS: October 18, 2016 VIEWS: 2: Frontal dual-energy and lateral views of the chest. FINDINGS: CARDIOMEDIASTINAL SILHOUETTE: The cardiomediastinal silhouette is normal. CEZAR: The cezar are normal. PLEURA: There is a trace left pleural effusion versus chronic pleural thickening. There is no appreciable pneumothorax. LUNG PARENCHYMA: The lung volumes are low. ABDOMEN: The upper abdomen is clear. There is no subphrenic gas. BONES AND SOFT TISSUES: Degenerative changes are noted along the spine. OTHER: There is a dual-lead left-sided pacemaker. IMPRESSION: TRACE LEFT PLEURAL EFFUSION VERSUS CHRONIC PLEURAL THICKENING. NO ACTIVE CARDIOPULMONARY DISEASE.
[2016-10-19] MEDS: ceFAZolin 1 GM in Dextrose (*) 1 GM/50 ML BAG IVPB SCH ×2 (09:16)
[2016-10-19 11:33] VITALS: BP 138/63
--- NOTE | 2016-10-20 02:20 | DS ---
DISCHARGE SUMMARY: DATE OF ADMISSION: DATE OF DISCHARGE: 10/19/16 HISTORY OF PRESENT ILLNESS AND HOSPITAL COURSE: Mrs. Martinez is an 86-year-old woman with a history of sick sinus syndrome and recent stroke. The patient was admitted for elective pacemaker implantation for history of tachybrady syndrome with sick sinus syndrome and paroxysmal AFib. The patient underwent pacemaker implantation on 10/18/16 with a Medtronic MRI compatible device without complications. Overnight the patient had some mild pain that was resolved with pain medication and today she is ambulating in her room without trouble. No shortness of breath. No discomfort and she wants to go home. PAST MEDICAL HISTORY: The patient has a past medical history of sick sinus syndrome, paroxysmal AFib/flutter, TIA, peripheral vascular disease, hypertension, dyslipidemia, and type 2 diabetes. OUTPATIENT MEDICATIONS: Included: 1. Digoxin as directed. 2. Citalopram 10 mg a day. 3. Hydrochlorothiazide 25 mg a day. 4. Coumadin. 5. Vitamin D3. 6. Glucosamine sulfate 2 g a day. 7. Crestor 5 mg Monday, Monday, and Monday. 8. Toprol-XL 12.5 mg in the morning and 25 mg in the evening. 9. Tylenol p.r.n. 10. Zantac p.r.n. 11. Turmeric 500 mg daily. 12. Aleisha hips. 13. Coenzyme-Q. 14. Vitamin B12. 15. Plavix 75 mg a day. ALLERGIES: Include LIPITOR, ASPIRIN, OSTEO BI-FLEX, PRAVACHOL, and LIVALO. PHYSICAL EXAMINATION: On exam, the patient is 5 feet tall, weighs 135 pounds with a BMI of 26. Blood pressure 126/72 and she is in coarse AFib versus atrial flutter with ventricular rates in the 100s. General Appearance: A petite elderly woman, seated, in no acute distress. Psychological: Calm, cooperative, and pleasant. Neurological: Awake, alert, and oriented to person, place, and time. Cranial nerves II through XI intact. Within the bed, there is grossly normal sense and motor function. Speech is articulate. Comprehension is good. Skin: Warm and dry. Incision, left subclavian fossa shows some minimal dried blood. No amish bleeding, no ecchymosis, and no hematoma. No evidence of infection. No cyanosis noted. Pulmonary: Respirations were clear with good effort. No wheezes, rales, or rhonchi. Coronary: S1, S2. Irregularly irregular. No murmurs heard. Abdomen: Soft. No epigastric discomfort. Nondistended. Extremities: Lower extremities are a bit thick, but no pitting edema. DIAGNOSTIC STUDIES/LAB DATA: Chest x-ray today shows good placement of the atrial and ventricular leads and no pneumothorax. The lung gonzalez appear clear. A 12-lead ECG done this morning at 0730 hours consistent with atypical flutter with cowlitz QRS alternating with ventricularly paced beats with appropriate pacing and sensing. [place] QRS access is +30. Normal intraventricular conduction times and nonspecific ST and T-wave changes. No labs this admission. Pacemaker interrogation today shows Advisa DR BERRY [id number] serial number [id number]. Flutter P-wave sensed at 1.1 millivolt, atrial lead impedance 380 ohms, ventricular R-wave sensed at 11.3 millivolts with a ventricular lead impedance of 513 ohms and a ventricular pacing threshold of 0.5 volts at 0.4 milliseconds. The patient remained in atrial flutter on intracardiac electrocardiogram. This programmed in AAI/DDD. She is paced in the A and V less than 0.1%. ASSESSMENT/PLAN: In summary, Mrs. Martinez is an 86-year-old woman with history of sick sinus syndrome, paroxysmal AFib/flutter with recent transient ischemic attack and recurrence of A-flutter. She underwent dual-chamber pacemaker implantation yesterday without incidence. She remains in atrial flutter and she will be discharged home. The patient will be discharged on the following medications: 1. Tylenol p.r.n. 2. Maalox p.r.n. 3. Metoprolol will be increased to 50 mg a day. 4. Ascorbic acid 1000 mg a day. 5. Vitamin D 2000 mg a day. 6. Plavix 75 mg a day. 7. Coenzyme-Q 200 mg a day. 8. Vitamin B12 1000 mcg in the morning. 9. Digoxin 0.125 mg daily. 10. Citalopram 10 mg a day. 11. Glucosamine sulfate 1 g b.i.d. 12. Hydrochlorothiazide 25 mg a day. 13. Ranitidine 75 mg p.r.n. 14. Rosuvastatin 5 mg 3 times a week. 15. Turmeric 500 mg a day. 16. Coumadin to be resumed at the prior dose. Additionally, the patient will be given Keflex 500 mg t.i.d. for 3 days on discharge. The patient was discharged with printed instructions in addition to verbal instructions that I provided. She will follow up with Dr. Corona next week for a wound check. CC: Rosalino Corona MD; Mireya Finnegan MD* [id number]/[facility] #: [id number] MTDD
== END 2016-10-19 12:51 | disposition home or self-care (01) ==
LOC: CHICATH 07:41 → MEDTELE 10:52
PROVIDERS: ADMIT Specialist; ATTEND Specialist
DX: I49.5 Sick sinus syndrome (principal); I48.0 Paroxysmal atrial fibrillation; Z79.01 Long term (current) use of anticoagulants; I73.9 Peripheral vascular disease, unspecified; I10 Essential (primary) hypertension; E78.5 Hyperlipidemia, unspecified; E11.9 Type 2 diabetes mellitus without complications; Z79.84 Long term (current) use of oral hypoglycemic drugs; Z86.73 Personal history of transient ischemic attack (TIA), and cerebral infarction without residual deficits; Z79.02 Long term (current) use of antithrombotics/antiplatelets; Z79.899 Other long term (current) drug therapy; Z88.6 Allergy status to analgesic agent; Z88.8 Allergy status to other drugs, medicaments and biological substances
CPT/HCPCS: 33208; 71010; 71020; 93005; A9270-GY; C1785; C1898; G0378; J0690; J2001; J2250; J2310; J3010

== ENCOUNTER 2019-07-13 13:15 | Inpatient (IN) | payer MEDICARE, OTHER ==
--- NOTE | 2019-07-13 13:36 | ED ---
Complex/Multi-Sys Presentation - HPI Summary HPI Summary: This patient is an 89 year old F BIBA via EMS to ED as a 941 with a chief complaint of weakness since yesterday. Patients nephew called EMS because the patient has not been taking any of her medications or eating. Patient states she last ate either yesterday or the day before. Patient lives by herself, but her nephew has been checking on her daily. Per nephew, patient had difficulty getting out of bed and walking down the stairs. He also states that she has been confused recently. Patients nephew does not think she is safe at home by herself. He reports that she gave up on life a year ago and is not keeping her home clean. Patients nephew states the patient is not in the right mental condition to be making informed decisions. Patient does not want to be in the ED. Patient reports having lower abdominal pain for the past 5-6 weeks. She was being worked up for rectal bleeding and was found to have a benign polyp. Patient denies SI/HI. The patient rates the pain 0/10 in severity. Symptoms aggravated by nothing. Symptoms alleviated by nothing. - History Of Current Complaint Hx Obtained From: Patient, Family/Junior High School Teacher - Nephew Onset/Duration: Gradual Onset, Lasting Days - Yesterday, Still Present, Worse Since Timing: Constant Severity Currently: Mild Severity Initially: Mild Aggravating Factor(s): Nothing Alleviating Factor(s): Nothing Associated Signs And Symptoms: Positive: Confusion, Weakness, Abdominal Pain, Other - Decreased appetite, Negative: SI/HI - Allergies/Home Medications Allergies/Adverse Reactions: Allergies Allergy/AdvReac Type Severity Reaction Status Date / Time aspirin Allergy GI Upset Verified 06/26/18 14:12 atorvastatin [From Lipitor] Allergy Muscle Ache Verified 06/26/18 14:12 PMH/Surg Hx/FS Hx/Imm Hx Endocrine/Hematology History: Reports: Hx Diabetes - Borderline Cardiovascular History: Reports: Hx Hypercholesterolemia, Hx Hypertension, Hx Pacemaker/ICD, Other Cardiovascular Problems/Disorders History: Denies: Hx Renal Disease Musculoskeletal History: Reports: Hx Arthritis - HANDS Sensory History: Reports: Hx Cataracts, Hx Contacts or Glasses Denies: Hx Hearing Aid Opthamlomology History: Reports: Hx Cataracts, Hx Contacts or Glasses Neurological History: Reports: Hx Migraine - RARELY, Hx Transient Ischemic Attacks (TIA) Psychiatric History: Reports: Hx Anxiety, Hx Depression Denies: Hx Panic Disorder - Surgical History Surgery Procedure, Year, and Place: Pacemaker 10/18/16. Cataracts Hx Anesthesia Reactions: No Infectious Disease History: Reports: Hx Shingles - light case, years ago Denies: Traveled Outside the [place] in Last 30 Days - Family History Known Family History: Positive: Cardiac Disease, Diabetes, Other - Cancer, Stroke Family History: Denies FHx anesthesia reaction - Social History Alcohol Use: None Hx Substance Use: No Substance Use Type: Reports: None Hx Tobacco Use: No Smoking Status (MU): Never Smoked Tobacco Have You Smoked in the Last Year: No Review of Systems Gastrointestinal: Other - Not eating Positive: Abdominal Pain Neurological: Other - Confusion Positive: Weakness Psychological: Other - Negative: SI/HI All Other Systems Reviewed And Are Negative: Yes Physical Exam - Summary Physical Exam Summary: Appearance: The patient is well-nourished in no acute distress and in no acute pain. Skin: Tenting. HEENT: The head is normocephalic and atraumatic. The pupils are equal and reactive. The conjunctivae are clear and without drainage. Dry mucous membranes. The external ears are intact. The ear canals are patent and without drainage. The tympanic membranes are intact. Neck: The neck is supple with full range of motion and non-tender. There are no carotid bruits. There is no neck vein distension. Respiratory: Chest is non-tender. Lungs are clear to auscultation and breath sounds are symmetrical and equal. Cardiovascular: Tachycardic. There is no murmur or rub auscultated. There is no peripheral edema and pulses are symmetrical and equal. Abdomen: The abdomen is soft and non-tender. There are normal bowel sounds heard in all four quadrants and there is no organomegaly palpated. Musculoskeletal: There is no back tenderness noted. Extremities are non-tender with full range of motion. There is good capillary refill. There is no peripheral edema or calf tenderness elicited. Neurological: Patient is alert and oriented to person, place and time. The patient has symmetrical motor strength in all four extremities. Cranial nerves are grossly intact. Deep tendon reflexes are symmetrical and equal in all four extremities. Psychiatric: The patient has an appropriate affect and does not exhibit any anxiety or depression. Triage Information Reviewed: Yes Vital Signs On Initial Exam: Initial Vitals Temp Pulse Resp BP Pulse Ox 98.4 F 111 14 132/80 96 07/13/19 13:25 07/13/19 13:25 07/13/19 13:25 07/13/19 13:25 07/13/19 13:25 Vital Signs Reviewed: Yes Procedures - Sedation Patient Received Moderate/Deep Sedation with Procedure: No Diagnostics - Laboratory Result Diagrams: 07/13/19 13:45 07/13/19 13:45 Lab Statement: Any lab studies that have been ordered have been reviewed, and results considered in the medical decision making process. - Radiology CXR Radiology Interpretation Completed By: Radiologist Summary of Radiographic Findings: No acute cardiopulmonary process by radiograph. Dr. Sandoval has reviewed this radiology report. - EKG 1356 Cardiac Rate: Tachycardia - 104 BPM EKG Rhythm: Atrial Fibrillation Summary of EKG Findings: An EKG at 1356 revealed atrial fibrillation at [address] Sandoval has reviewed and interpreted this EKG. Complex Multi-Symp Course/Dx Course Of Treatment: Ms. Martinez was brought in by ambulance at the request of her nephew. He is power of grinding wheel inspector and has been helping her by buying groceries and visiting her often as she lives alone. She has gradually become less and less able to take care of herself and he has been having to half carry her and have drag her to get her from the kitchen on the first floor to her bedroom on second floor. He does not believe she is able to take care of herself at this point and she is too weak to walk. She was tired in appearance and found to have a mild tachycardia associated with atrial fibrillation. I spoke with the hospitalist service about having her admitted. - Diagnoses Provider Diagnoses: Atrial fibrillation, Weakness - Physician Notifications Discussed Care Of Patient With: Edel Hughes Time Discussed With Above Provider: 16:01 Instructed by Provider To: Admit As Observation - Discussed patient case with Dr. Hughes, hospitalist, who accepted the patient for admission to [facility] [place]. Discharge ED - Sign-Out/Discharge Documenting (check all that apply): Patient Departure - Admit - Discharge Plan Condition: Fair Disposition: ADMITTED TO [facility] - Billing Disposition and Condition Condition: FAIR Disposition: Admitted to [facility] - Attestation Statements Document Initiated by Scribe: Yes Documenting Scribe: Sarmad Honeycutt Provider For Whom Scribe is Documenting (Include Credential): Tommie Sandoval MD Scribe Attestation: I, Sarmad Honeycutt, scribed for Tommie Sandoval MD on 07/13/19 at 1909. Scribe Documentation Reviewed: Yes Provider Attestation: The documentation as recorded by the scribe, Sarmad Honeycutt accurately reflects the service I personally performed and the decisions made by me, Tommie Sandoval MD Status of Scribe Document: Viewed
[2019-07-13] MEDS ORDERED: NS 0.9% 1000 ML** 1,000 ML IV ONE (13:52)
[2019-07-13 14:03] LABS: ABS Basophils 0.1 10^3/ul (0-0.2); ABS Lymphocytes 0.8 10^3/ul (1.0-4.8); ABS Monocytes 0.9 10^3/ul (0-0.8); ABS Neutrophils 10.1 10^3/ul (1.5-7.7); Eosinophil % 0.1 %; Hematocrit 34 % (35-47); Hemoglobin 11.1 g/dL (12.0-16.0); Lymphocyte % 6.8 %; Mean Corpuscular HGB Conc 33 g/dL (31-36); Mean Corpuscular Hemoglobin 28 pg (27-31); Mean Corpuscular Volume 87 fL (80-97); Mean Platelet Volume 7.3 fL (7.4-10.4); Platelet Count 497 10^3/uL (150-450); Red Blood Count 3.93 10^6 /uL (3.70-4.87); Red Cell Distribution Width 13 % (10-15); White Blood Count 11.9 10^3/uL (3.5-10.8)
[2019-07-13 14:20] LABS: ALT 17 U/L (7-52); AST 18 U/L (13-39); Albumin 3.3 g/dL (3.2-5.2); Alkaline Phosphatase 71 U/L (34-104); Anion Gap 9 mmol/L (2-11); BUN/Creatinine Ratio 15.5 (8-20); Blood Urea Nitrogen 13 mg/dL (6-24); C Reactive Protein 167.38 mg/L (<8.01); CO2 Carbon Dioxide 29 mmol/L (22-32); Chloride 96 mmol/L (101-111); EGFR African American 77.6 (>60); EGFR Non-African American 64.1 (>60); Globulin 3.4 g/dL (2-4); Glucose 151 mg/dL (70-100); Magnesium 1.8 mg/dL (1.9-2.7); Sodium 134 mmol/L (135-145); Total Protein 6.7 g/dL (6.4-8.9)
[2019-07-13 14:27] LABS: Troponin I 0.04 ng/mL (<0.03)
[2019-07-13 14:39] LABS: TSH (Thyroid Stimulating Horm) 0.81 mcIU/mL (0.34-5.60)
[2019-07-13] MEDS ORDERED: Magnesium Sulfate 2 GM IV* 2 GM/50 ML BAG IVPB ONE (16:19)
[2019-07-13] MEDS ORDERED: Metoprolol Tartrate IV* 1 MG/ML 5 ML VIAL IV ONE (16:27)
[2019-07-13] MEDS ORDERED: Magnesium Hydroxide LIQ* 30 ML UDC PO PRN (17:23)
[2019-07-13] MEDS ORDERED: Docusate CAP* 100 MG PO PRN (17:24)
[2019-07-13 18:21] LABS: Troponin I 0.04 ng/mL (<0.03)
[2019-07-13] MEDS: NS 0.9% 1000 ML** 1,000 ML IV SCH (19:36)
[2019-07-13] MEDS ORDERED: LORazepam INJ* 2 MG/ML 1 ML VIAL IV PUSH PRN (19:40)
[2019-07-13] MEDS ORDERED: Lorazepam PYXIS KEY PRN (19:40)
[2019-07-13] MEDS: Senna TAB 8.6 mg* TAB PO SCH (20:36)
[2019-07-13] MEDS: Apixaban* 2.5 MG TAB PO SCH (20:37)
[2019-07-13] MEDS ORDERED: Metoprolol Succinate XL TAB* 50 MG PO SCH (21:00)
--- NOTE | 2019-07-13 23:48 | HP ---
ADMISSION HISTORY AND PHYSICAL: DATE OF ADMISSION: 07/13/19 PRIMARY CARE PHYSICIAN: Dr. Mireya Finnegan. PROVIDER: Treva Carlson NP ATTENDING PHYSICIAN: Dr. Brown.* (DICTATED BY TREVA CARLSON NP) CHIEF COMPLAINT: Failure to thrive. HISTORY OF PRESENT ILLNESS: This is an 89-year-old female with a past medical history significant for hypertension, CVA, sick sinus syndrome, who was brought in via [facility] as a 9.41 due to her inability to care for herself at home. Her nephew, who is one of her primary caregivers, is on the [employer] force and stated that she has not been taking her medications for some time and also has not been eating. He has noticed a gradual decline in her health and in her ability to care for herself for the past 2 months. The nephew and niece have been giving the patient a heads up that they were going to take her out for breakfast and that is the only way that she would consent to getting into a shower and general cleaning up. Her neighbor who is, Mireya Mcmullen, who is an CORRUGATOR MACHINE OPERATOR has also been caring for the patient, offering to do dishes and things around the house, has also had provided additional information stating that the reason why the patient stopped taking her medications and stopped eating is because she did not want to go to a fdc, which her nephew has been stating that he will put her in because of her failure to thrive. Mireya Mcmullen also stated that the patient had been experiencing some vaginal bleeding due to uterine polyps and is supposed to have gone to [place] to undergo a D and C, but none of this has happened. In the emergency room, the patient received a liter of IV fluid, labs were drawn. Chest x-ray was done. EKG was performed showed that she was in AFib with RVR. The patient was confused to time, but was oriented to herself and to place and situation. She kept stating that "my mind is going" and states she had not eaten in a few days. Her sentences were disjointed. She was talking in circles, though was able to clearly express that she was having pelvic pain as well as burning with urination. The neighbor had spoken to the nurse that this abdominal pain has been ongoing due to the uterine polyps. The patient states that she feels like her thinking is more fussy than usual, otherwise was unable to contribute much of any coherent information. PAST MEDICAL HISTORY: Sick sinus syndrome, CVA, TIA, hypertension, GERD, PVD, Aflutter, AFib, uterine polyps, persistent mood (affective disorder), depression , osteoarthritis, hyperlipidemia, diabetes type 2, vertigo, and an WA. PAST SURGICAL HISTORY: Left chest wall pacer placement and breast lumpectomy unclear as to which side. HOME MEDICATIONS: Difficulty with obtaining current medication list, called [facility] stated that she was takin. Eliquis 2.5 mg p.o. b.i.d. 2. Crestor 5 mg p.o. q.Monday, Monday, Monday. 3. Escitalopram 15 mg p.o. daily. Unable to confirm other medications that were present on the previous med rec. ALLERGIES: To ASPIRIN and ATORVASTATIN. FAMILY HISTORY: Noncontributory. SOCIAL HISTORY: Noncontributory though lives alone with her niece and nephew as primary caregivers and obtains help from her neighbor, Mireya Mcmullen. REVIEW OF SYSTEMS: An 11-point system review was performed, which was positive for poor appetite, sore throat which would lead to her trouble swallowing, cough with no sputum production, constipation, burning with urination without frequency, feeling lightheaded and dizzy. Negative for any chest pain, shortness of breath, palpitations, nausea, vomiting. PHYSICAL EXAMINATION GENERAL: This is a well-developed, older woman seen resting in the stretcher with poor grooming. VITAL SIGNS: 98.4 Fahrenheit temperature, 114 pulse, 22 respirations, 96% oxygen on room air, and blood pressure 129/86. HEENT: Eyes: Conjunctivae pink and moist. PERRLA. EOMs intact. ENT: Lips and mucous membranes are dry. Halitosis. Oropharynx clear. NECK: Supple. RESPIRATORY: Lung sounds clear throughout bilaterally on room air. No accessory muscle use noted. CARDIAC: Heart rate irregular. AFib on the monitor. Stenosis heard. No lower extremity edema. ABDOMEN: Soft, tender throughout, nondistended with positive bowel sounds x4. MUSCULOSKELETAL: No clubbing or cyanosis. Full range of motion of all extremities. NEURO: Moves all extremities. Sensation intact to light touch. No focal deficits appreciated. Smile symmetrical. Tongue midline. PSYCH: Alert and oriented to self and place but not time, does not appear anxious or depressed. SKIN: Dry, flaky to entire body, though no open areas or rashes appreciated. PERTINENT LAB DATA: Sodium 134, chloride 96, glucose 151, lactic acid 1.2, magnesium 1.8. Troponin 0.04. C-reactive protein 167.38. WBCs 11.9, hemoglobin 11.1, hematocrit 34, platelet count 497. DIAGNOSTIC STUDIES: EKG showed AFib with RVR. Chest x-ray showed no acute cardiopulmonary process. ASSESSMENT AND PLAN: My impression is this is an 89-year-old female with past medical history significant for sick sinus syndrome, cerebrovascular accident, and hypertension, who was admitted on 07/13/19 for atrial fibrillation with rapid ventricular response as well as failure to thrive. 1. Atrial fibrillation with rapid ventricular response. Lightheadedness is her only symptom. Unclear for how long she has been off her medication. Metoprolol 5 mg IV given in the emergency room. An old med rec showed that she had been on metoprolol succinate 50 mg, which I continued for tonight, ordered telemetry monitoring with goal of rate control, continued her Eliquis. We will order physical therapy and occupational therapy for generalized weakness. We will have further discussion with patient and Dr. Finnegan about the general plan whether the patient should go home on hospice due to her lack of desire to go to a fdc. Otherwise, the patient is unable to care for herself at home and we will recommend at the very least a subacute rehab. 2. Hypomagnesemia. Level was 1.8 in the emergency department, gave 2 g of IV magnesium. The deficit could be contributing to her arrhythmia. We will recheck magnesium in a.m. 3. Possible urinary tract infection. Awaiting UA. Suspect urinary tract infection due to suprapubic pain, confusion, reported burning with urination and slightly elevated white blood cell count. We will wait to treat with antibiotics after UA has resulted, though we will keep her hydrated with IV fluids normal saline at 100 x3 bags. 4. Anemia, likely iron deficiency. The patient has been experiencing vaginal bleeding per her neighbor for an indeterminate amount of time, supposed to have underwent a dilation and curettage to treat uterine polyps. We will start ferrous sulfate daily. 5. Hyperlipidemia. Continue rosuvastatin. 6. Hypertension. Despite no medication at home for an indeterminate amount of time, blood pressures have been well controlled, no greater than the 140 systolically. We will continue metoprolol. 7. Depression. Confirmed medication with pharmacy. We will continue escitalopram. 8. Diabetes, type 2. I found a history of this in her records, but no evidence of her being on any medications. We will check a hemoglobin A1c. Glucose in the ED was 151 per blood draw. 9. DVT prophylaxis. Continue Eliquis. 10. Code status is full code. 11. Condition is guarded. 12. Disposition is admit to [facility] to [address] [place] [address]. TIME SPENT: Time spent on the patient is 60 minutes with more than half of that spent [id number]. TREVA CARLSON, CORRUGATOR MACHINE OPERATOR [id number]/[facility] #: [id number] MTDD
[2019-07-14 06:29] LABS: ABS Lymphocytes 1.6 10^3/ul (1.0-4.8); ABS Monocytes 1.1 10^3/ul (0-0.8); Eosinophil % 0.3 %; Hematocrit 29 % (35-47); Hemoglobin 9.4 g/dL (12.0-16.0); Lymphocyte % 14.8 %; Mean Corpuscular HGB Conc 33 g/dL (31-36); Mean Corpuscular Hemoglobin 28 pg (27-31); Mean Corpuscular Volume 86 fL (80-97); Mean Platelet Volume 7.3 fL (7.4-10.4); Platelet Count 426 10^3/uL (150-450); Red Blood Count 3.32 10^6 /uL (3.70-4.87); Red Cell Distribution Width 13 % (10-15); White Blood Count 10.8 10^3/uL (3.5-10.8)
[2019-07-14 06:51] LABS: BUN/Creatinine Ratio 14.3 (8-20); Calcium 8.3 mg/dL (8.6-10.3); EGFR African American 108.2 (>60); EGFR Non-African American 89.4 (>60); Magnesium 2.2 mg/dL (1.9-2.7); Potassium 3.9 mmol/L (3.5-5.0)
[2019-07-14 08:13] LABS: Urine Appearance Turbid; Urine Bilirubin Negative (Negative); Urine Blood 3+ (Negative); Urine Color Amber; Urine Glucose Negative (Negative); Urine Ketones Negative (Negative); Urine Nitrite Negative (Negative); Urine Protein 2+(100 mg/dL) (Negative); Urine Specific Gravity 1.019 (1.010-1.030); Urine Urobilinogen Positive (Negative)
[2019-07-14 08:17] LABS: Urine Bacteria 2+ (Absent); Urine Red Blood Cell 3+(>10/hpf) (Absent); Urine Squamous Epithelial Cell Present (Absent); Urine White Blood Cell 3+(>20/hpf) (Absent)
[2019-07-14] MEDS: cefTRIAXone(*) 1 GM in NS 0.9% 50 ML* 50 ML IVPB SCH (08:32)
[2019-07-14] MEDS: Apixaban* 2.5 MG TAB PO SCH ×2 (08:32→20:26)
[2019-07-14] MEDS: Cyanocobalamin TAB* 500 MCG PO SCH (08:32)
[2019-07-14] MEDS: NS 0.9% 1000 ML** 1,000 ML IV SCH ×2 (08:32→19:16)
[2019-07-14] MEDS: Escitalopram * 10 MG TAB PO SCH (08:32)
[2019-07-14] MEDS: Ferrous Sulfate TAB* 325 MG PO SCH (08:32)
[2019-07-14] MEDS ORDERED: Metoprolol Succinate XL TAB* 25 MG PO ONE (09:07)
--- NOTE | 2019-07-14 12:59 | PN ---
Subjective Date of Service: 07/14/19 Interval History: HOSPITALIST PROGRESS NOTE Patient seen and examined at bedside. Care reviewed and d/w Sweta Pérez RN. She offers no complaints at this time, but "don't want to be here". Family History: Unchanged from Admission Social History: Unchanged from Admission Past Medical History: Unchanged from Admission Objective Active Medications: Acetaminophen (Tylenol Tab*) 650 mg PO Q4H PRN PRN Reason: MILD PAIN or TEMP > 100.4 Apixaban (Eliquis*) 2.5 mg PO BID [facility] Last Admin: 07/14/19 08:32 Dose: 2.5 mg Cyanocobalamin (Vitamin B12 Tab*) 1,000 mcg PO QAM [facility] Last Admin: 07/14/19 08:32 Dose: 1,000 mcg Docusate Sodium (Colace Cap*) 100 mg PO BID PRN PRN Reason: CONSTIPATION Escitalopram Oxalate (Lexapro *) 15 mg PO DAILY [facility] Last Admin: 07/14/19 08:32 Dose: 15 mg Ferrous Sulfate (Ferrous Sulfate Tab*) 325 mg PO DAILY [facility] Last Admin: 07/14/19 08:32 Dose: 325 mg Sodium Chloride (Ns 0.9% 1000 Ml) 1,000 mls @ 100 mls/hr IV PER RATE [facility] Stop: 07/16/19 03:14 Last Admin: 07/14/19 08:32 Dose: 100 mls/hr Ceftriaxone Sodium 1 gm/ (Sodium Chloride) 50 mls @ 100 mls/hr IVPB Q24H [facility] Last Admin: 07/14/19 08:32 Dose: 100 mls/hr Lorazepam (Ativan Inj*) 0.5 mg IV PUSH Q4H PRN PRN Reason: ANXIETY Magnesium Hydroxide (Milk Of Magnesia Liq*) 30 ml PO Q6H PRN PRN Reason: CONSTIPATION Metoprolol Succinate (Toprol Xl Tab*) 50 mg PO BEDTIME [facility] Last Admin: 07/13/19 20:36 Dose: 50 mg Miscellaneous (Ativan Pyxis [place]) 1 ea N/A .ATIVAN IV OBREGON PRN PRN Reason: PYXIS OBREGON Rosuvastatin Calcium (Crestor (Nf)) 5 mg PO MoWeFr@0900 [facility]; Protocol Senna (Senokot 8.6 Mg Tab*) 1 tab PO BEDTIME [facility] Last Admin: 07/13/19 20:36 Dose: 1 tab Vital Signs - 8 hr 07/14/19 07/14/19 08:23 11:11 Temperature 98.1 F 99.9 F Pulse Rate 126 110 Respiratory 20 20 Rate Blood Pressure 145/77 132/71 (mmHg) O2 Sat by Pulse 90 92 Oximetry Oxygen Devices in Use Now: None Appearance: Elderly frail lady lying in bed in NAD Eyes: No Scleral Icterus Ears/Nose/Mouth/Throat: Mucous Membranes Moist Neck: Trachea Midline Respiratory: Symmetrical Chest Expansion and Respiratory Effort, Clear to Auscultation Cardiovascular: - - Normal S1 and S2, irregularly irregular Abdominal: - - Soft, mild hypogastric tenderness, NG, NR, BS+ Neurological: - - AAOx2 (self and place), MARSHALL - Nutrition: Malnutrition Diagnosis/Plan Malnutrition Assessment by Registered Dietitian: Malnutrition Assessment Clinical Characteristics Chronic,Severe Malnutrition Assessment: Muscle Wasting - Temporal (moderate-severe) Criteria Inadequate Oral Intake - Pt noted w/ poor intake ; consumed 0% B this AM - Anticipate meeting < 75 % nutrient needs >1 mo (severe) Unintentional Weight Loss - Pt noted w/ wt loss per records; current wt 101lb, prev wt on record 128lb (06/2019) - 21% loss x1 yr (severe) Underweight - BMI 16.8 Malnutrition Assessment: Nutritional Supplementals/Nourishments - Will Interventions trial Glucerna (220kcal, 10g prot/serv) w/ B, L , and D to optimize kcal/prot intake; will monitor acceptance GI Related - Will monitor GI s/sx for impact on intake Glycemic Control - Given inadequate oral intake , consistent carb diet not indicated at this time ; will continue to monitor BG/FS in the setting of T2DM Malnutrition Assessment: Goals 1) Recommend liberalizing diet to regular unrestricted 2) Adequate po intake to replete lean body mass , support wt gain and hydration status 3) Improve fluid/electrolyte balance w/ adequate po intake and repletion PRN 4) Maintain glycemic control w/ adequate po intake w/o need for dietary restriction in the setting of T2DM 5) Maintain bowel regularity w/ adequate po intake w/o development of diarrhea/constipation Result Diagrams: 07/15/19 05:20 07/15/19 05:30 Assess/Plan/Problems-Billing Assessment: Mrs Martinez is an 89yo F with PMH of SSS, CVA, HTN, GERD, PVD, atrial flutter, uterine polyps, type 2 DM, depression, who was brought in to the ED by her nephew with concerns of inability to care for self and failure to thrive, found to be in Afib RVR and to have an UTI. - Patient Problems (1) Failure to thrive Comment: - As per records, patient weighed 138lbs in 2017, now down to 101lbs. - Check prealbumin. - Also concerned for malignancy - check CT abd/pelvis. (2) Atrial fibrillation with RVR Comment: - Secondary to non compliance and mild dehydration. - Continue Metoprolol and Apixaban. (3) Urinary tract infection Comment: - Abnormal UA - follow urine culture. - Start Ceftriaxone. (4) Anemia Comment: - Likely iron deficiency in the setting of uterine bleeding, but could also be anemia of chronic disease. - Check anemia w/u. (5) Depression Comment: - Patient does appear to have cognitive decline - dementia vs pseudodementia. - Will resume SSRI, check B12. TSH is normal. (6) Severe protein-calorie malnutrition Comment: - Chronic severe protein calorie malnutrition as evidenced by temporal muscle wasting, inadequate oral intake, weight loss, underweight - BMI 16.8. - Dietitian input appreciated - continue nutritional supplementals. (7) DVT prophylaxis Comment: - Apixaban. (8) Full code status (9) Physical deconditioning Comment: - PT/OT evaluation. - Will likely need SNF. Status and Disposition: Change to inpatient.
[2019-07-14] MEDS: Senna TAB 8.6 mg* TAB PO SCH (20:20)
[2019-07-14] MEDS: Metoprolol Succinate XL TAB* 50 MG PO SCH (20:26)
[2019-07-14] MEDS: Acetaminophen TAB* 325 MG PO PRN (23:27)
[2019-07-15 06:07] LABS: ABS Eosinophils 0.1 10^3/ul (0-0.6); ABS Lymphocytes 1.7 10^3/ul (1.0-4.8); ABS Monocytes 0.9 10^3/ul (0-0.8); ABS Neutrophils 6.9 10^3/ul (1.5-7.7); Eosinophil % 0.8 %; Hematocrit 26 % (35-47); Hemoglobin 8.4 g/dL (12.0-16.0); Lymphocyte % 17.5 %; Mean Corpuscular HGB Conc 33 g/dL (31-36); Mean Corpuscular Hemoglobin 28 pg (27-31); Mean Corpuscular Volume 87 fL (80-97); Mean Platelet Volume 7.7 fL (7.4-10.4); Platelet Count 352 10^3/uL (150-450); Red Blood Count 2.95 10^6 /uL (3.70-4.87); Red Cell Distribution Width 13 % (10-15); White Blood Count 9.6 10^3/uL (3.5-10.8)
[2019-07-15] MEDS ORDERED: NS 0.9% 1000 ML** 1,000 ML IV SCH (06:15)
[2019-07-15 06:28] LABS: Anion Gap 8 mmol/L (2-11); BUN/Creatinine Ratio 14.7 (8-20); Blood Urea Nitrogen 10 mg/dL (6-24); CO2 Carbon Dioxide 24 mmol/L (22-32); Calcium 8.1 mg/dL (8.6-10.3); Chloride 105 mmol/L (101-111); EGFR Non-African American 81.8 (>60); Glucose 120 mg/dL (70-100); Potassium 3.6 mmol/L (3.5-5.0); Sodium 137 mmol/L (135-145)
[2019-07-15 06:29] LABS: Prealbumin 7 mg/dL (18-38); Total Iron Binding Capacity 168 mcg/dL (250-450); Transferrin 120 mg/dL (203-362)
[2019-07-15 06:31] LABS: % Iron Saturation 12 % (15-55); Iron < 20 ug/dL (50-212)
[2019-07-15 06:47] LABS: Ferritin 191.2 ng/mL (11-307)
[2019-07-15 06:51] LABS: Folate 7.59 ng/mL (>3.99)
[2019-07-15] MEDS: Ferrous Sulfate TAB* 325 MG PO SCH (08:41)
[2019-07-15] MEDS: Escitalopram * 10 MG TAB PO SCH (08:41)
[2019-07-15] MEDS: Apixaban* 2.5 MG TAB PO SCH ×2 (08:41→20:37)
[2019-07-15] MEDS: cefTRIAXone(*) 1 GM in NS 0.9% 50 ML* 50 ML IVPB SCH (08:41)
[2019-07-15] MEDS: Cyanocobalamin TAB* 500 MCG PO SCH (08:41)
[2019-07-15] MEDS: CMC:Rosuvastatin (NF) 5 MG TAB PO SCH (08:41)
[2019-07-15 12:26] LABS: Digoxin < 0.3 ng/ml (0.8-2.0)
--- NOTE | 2019-07-15 16:09 | PN ---
Progress Note - Progress Note Date of Service: 07/15/19 Note: Spoke with nephew who has given rehab places. Tried to talk with pt but she said she was too tired to talk to day will chat in am.
[2019-07-15] MEDS ORDERED: Digoxin IV* 0.5 MG/2 ML AMP (0.25 MG/ML) IV SLOW PU ONE (16:52)
[2019-07-15] MEDS ORDERED: Metoprolol Tartrate IV* 1 MG/ML 5 ML VIAL IV ONE ×2 (18:02→22:51)
[2019-07-15] MEDS: Senna TAB 8.6 mg* TAB PO SCH (20:37)
[2019-07-15] MEDS: Metoprolol Succinate XL TAB* 50 MG PO SCH (20:37)
[2019-07-16] MEDS ORDERED: Metoprolol Tartrate IV* 1 MG/ML 5 ML VIAL IV ONE (00:50)
[2019-07-16 05:58] LABS: ABS Lymphocytes 1.4 10^3/ul (1.0-4.8); ABS Monocytes 0.9 10^3/ul (0-0.8); ABS Neutrophils 9.7 10^3/ul (1.5-7.7); Hematocrit 30 % (35-47); Hemoglobin 9.9 g/dL (12.0-16.0); Lymphocyte % 11.4 %; Mean Corpuscular HGB Conc 33 g/dL (31-36); Mean Corpuscular Hemoglobin 29 pg (27-31); Mean Corpuscular Volume 86 fL (80-97); Mean Platelet Volume 8.1 fL (7.4-10.4); Nucleated Red Blood Cells % 0.1; Platelet Count 472 10^3/uL (150-450); Red Blood Count 3.44 10^6 /uL (3.70-4.87); Red Cell Distribution Width 14 % (10-15); White Blood Count 12.1 10^3/uL (3.5-10.8)
[2019-07-16 06:16] LABS: C Reactive Protein 216.67 mg/L (<8.01); Calcium 8.7 mg/dL (8.6-10.3); EGFR African American 73.5 (>60); EGFR Non-African American 60.8 (>60); Potassium 4.8 mmol/L (3.5-5.0)
[2019-07-16] MEDS: Escitalopram * 10 MG TAB PO SCH (07:52)
[2019-07-16] MEDS: Cyanocobalamin TAB* 500 MCG PO SCH (07:52)
[2019-07-16] MEDS: Apixaban* 2.5 MG TAB PO SCH ×2 (07:52→21:10)
[2019-07-16] MEDS: Digoxin TAB* 0.25 MG PO SCH (07:53)
[2019-07-16] MEDS: cefTRIAXone(*) 1 GM in NS 0.9% 50 ML* 50 ML IVPB SCH (07:53)
[2019-07-16 09:56] LABS: Phosphorus 3.2 mg/dL (2.5-5.0)
[2019-07-16] MEDS: Metoprolol Succinate XL TAB* 50 MG PO SCH ×2 (10:01→21:10)
--- NOTE | 2019-07-16 12:00 | CONSULT ---
Consult Consult: Consult for Medical Decision Making Capacity S: Psychiatry is asked to evaluate capacity in this 89 y.o. single, white female with a history of arrhythmia and stroke who lives independently in her own house here in [place] and is currently admitted to [address] [place] [address] due to significant decrease in self-care in the setting of acute UTI. I spoke with attending Mireya Finnegan, who is also the patient's primary care provider, who reports that the patient was bedridden for several days prior to admission, had stopped taking medications and stopped eating and drinking. Ms. Martinez was discovered by the [employer], who were performing a wellness check at the behest of the patient's nephew, who is her HCP. She was allegedly covered in feces and incoherent at that time. Upon admission she was diagnosed with UTI and placed on antibiotics. An additional medical complication is the presence of vaginal polyps, which are partially necrotic and awaiting surgical intervention from a benefits advisor in [place]. Dr. Finnegan and the patient's nephew do not believe that she would be safe to return to her home without further rehabilitation, an opinion that was reinforced by the PT and OT services during their respective evaluations one day ago. Dr. Finnegan suggests that the patient's inability to perform ADLs constitute a significant risk to her safety. Unfortunately the patient is refusing TANIA placement. On exam the patient is asleep but arousable. She is uncertain of the circumstances surrounding this hospitalization and cannot name any of her diagnoses, including urine infection, vaginal polyp or arrhythmia. She seems confused and takes a somewhat paranoid stance towards her nephew, accusing him of overstepping his role and trying to run her life. "I do not want to go to a half-way." This clinician tried to distinguish between custodial and subacute rehabilitation with limited success. "I don't care what kind of place it is...I don't want to go there." I asked if she could identify any risks to her health if she was to go home without further rehab and she responds "No, I will be fine." O: aging white female with graying hair; dressed in patient gown with limited grooming; speech appears fluent; somewhat annoyed with this interview; euthymic mood with mildly irritable affect; denies SI or HI; insight and judgment poor given insistence on going home without rehab; awake and alert; oriented somewhat to place but not at all to time or situation A/P: Capacity: During our interaction, Ms. Martinez failed to demonstrate a reasonable understanding of her illness and the events leading to hospitalization. She could not articulate what future treatment course has been recommended by her inpatient providers and, although she could articulate a choice, she could not state any risks of refusing said treatment. In my judgment, she lacks the capacity to make an informed decision about refusing TANIA placement. Capacity is subject to change in these situations and psychiatry can be re-consulted in the event of any significant changes in the patient's presentation. I have discussed my opinion with the patient and [address] [place] [address] staff.
--- OUTSIDE RECORDS SUMMARY | 2019-07-16 15:36 | XMS REPORT | Summary of Care ---
:1930 Author Organization [facility] Address [address] [place] [id number] Care Team Providers Name Role Phone Unavailable Primary Care Provider Unavailable Reason for Referral Diagnostic Lab (Routine) Status Reason Specialty Diagnoses / Procedures Referred By Contact Referred To Contact Open Diagnoses Vaginal mass PMB (postmenopausal bleeding) Hebert Valente MD Procedures Surgical Pathology Exam ( Only) [address] [place] [address] Email: [email or web address] Reason for Visit Reason Comments Vaginal Bleeding Consult Pelvic Pain Encounter Details Date Type Department Care Team Description 07/01/2019 Office Visit [place] ARMATURE REWINDER Hebert Valente, Vaginal mass ( Primary Dx); [facility] NGHIA Kahn PMB (postmenopausal bleeding) [address] [place] [id number] Allergies Active Allergy Reactions Severity Noted Date Comments Aspirin Other (See Comments) 07/01/2019 Upset stomach documented as of this encounter (statuses as of 07/04/2019) Medications Medication Sig Dispensed Refills Start Date End Date Status Rosuvastatin Calcium 5 0 06/10/2019 Active MG Oral Tablet (CRESTOR) Meclizine HCl 12.5 MG Take 12.5 mg by 0 Active Oral Tablet (ANTIVERT) mouth Eliquis 2.5 MG Oral Take 2.5 mg by 0 06/12/2019 Active Tablet mouth Two Times Daily Escitalopram Oxalate 10 0 06/12/2019 Active MG Oral Tablet (LEXAPRO) Acetaminophen 500 MG Take by mouth 0 Active Oral Tablet (TYLENOL) Vitamin D-3 1000 UNIT Take by mouth 0 Active Oral Capsule (CHOLECALCIFEROL) Co Q 10 10 MG Oral Take by mouth 0 Active Capsule Metoprolol Succinate 100 Take by mouth 0 Active MG Oral Capsule ER 24 Hour Sprinkle documented as of this encounter (statuses as of 07/04/2019) Active Problems Problem Noted Date Vaginal mass 07/01/2019 PMB (postmenopausal bleeding) 07/01/2019 documented as of this encounter (statuses as of 07/04/2019) Social History Tobacco Use Types Packs/Day Years Used Date Never Smoker 0 Smokeless Tobacco: Never Used Tobacco Cessation: Counseling Given: No Alcohol Use Drinks/Week oz/Week Comments Never Alcohol Habits Answer Date Recorded How often do you have a drink containing alcohol? Never 07/01/2019 How many drinks containing alcohol do you have on a typical Not asked day when you are drinking? How often do you have six or more drinks on one occasion? Not asked Sex Assigned at Date Recorded Not on file Job Start Date Occupation Industry Not on file Not on file Not on file Travel History Travel Start Travel End No recent travel history available. documented as of this encounter Last Filed Vital Signs Vital Sign Reading Time Taken Comments Blood Pressure 115/65 07/01/2019 10:08 AM EST Pulse - - Temperature - - Respiratory Rate - - Oxygen Saturation - - Inhaled Oxygen Concentration - - Weight 59.4 kg (131 lb) 07/01/2019 10:08 AM EST Height 152.4 cm (5') 07/01/2019 10:08 AM EST Body Mass Index 25.58 07/01/2019 10:08 AM EST documented in this encounter Patient Instructions Patient InstructionsPenelope Rowley RN - 07/01/2019 10:00 AM ESTCall with any questions/concerns. documented in this encounter Progress Notes Hebert Valente MD - 07/01/2019 10:00 AM JUSTINA was present with the resident during the history and examination and also personally performed an examination. I discussed the case with the resident and agree with the findings and plan as documented in the resident's note. 89 yo with vaginal bleeding and thickened endometrial stripe. 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 DD - benign/ malignant potentials were reviewed. She was briefly given overview of management options, tbd once biopsy returns She will be called with results, and okayed discussing plan with her daughter in law who was presentfor visit today Hebert Valente M.D. Clinical Estate Manager Gynecologic Oncology Regina Burns MD - 07/01/2019 10:00 AM EST History of Present Illness:Mariza Tejeda a 89 y.o. female who presents for postmenopausal bleeding. Patient reports postmenopausal bleeding for the past 2 months. She is using 3-4 pads per day. She occasionally feels dizzy with standing, but reports no shortness of breath. She has noticed some loss of appetite as well as bloating and weight loss of 3 pounds per week for several weeks. She does report that she was started on Eliquis 2-3 months ago. Endometrial biopsy was unable to be performed at outside office. She was seen by Mireya Finnegan MD Pelvic US ( 05/01/19): Uterus Size 7.3 cm x 3.0 cm x 5.7 cm, Endometrial stripe 22 mm Right Ovary: not visualized Left Ovary: not visualized CT scan: not available CA 125: 37 CEA: not available CA 19-9: not available Albumin: not available She otherwise feels well overall, no pain/ vomiting/ bloating/ fever/chills. Past Medical History: Diagnosis Date Blood transfusion without reported diagnosis approx 1yr ago DVT (deep venous thrombosis) Hypertension Pacemaker Past Surgical History: Procedure Laterality Date PACEMAKER PLACEMENT There is no immunization history on file for this patient. Current Outpatient Medications Medication Sig Dispense Refill Acetaminophen 500 MG Oral Tablet (TYLENOL) Take by mouth Co Q 10 10 MG Oral Capsule Take by mouth Eliquis 2.5 MG Oral Tablet Take 2.5 mg by mouth Two Times Daily Escitalopram Oxalate 10 MG Oral Tablet (LEXAPRO) Meclizine HCl 12.5 MG Oral Tablet (ANTIVERT) Take 12.5 mg by mouth Metoprolol Succinate 100 MG Oral Capsule ER 24 Hour Sprinkle Take by mouth Rosuvastatin Calcium 5 MG Oral Tablet (CRESTOR) Vitamin D-3 1000 UNIT Oral Capsule (CHOLECALCIFEROL) Take by mouth No current facility-administered medications for this visit. Allergies: Asa [aspirin] - GI upset Gynecology History HEEL ATTACHER: 50s Menarche @ age 14 History: Pap: Cannot recall last, reports no history of abnormal Mammogram: Normal Bone Density: Normal Colonoscopy: never had Family History Problem Relation Age of Onset Cancer Mother bladder Social History Socioeconomic History Marital status: Single Spouse name: Not on file Number of children: Not on file Years of education: Not on file Highest education level: Not on file Occupational History Not on file Social Needs Financial resource strain: Not on file Food insecurity: Worry: Not on file Inability: Not on file Transportation needs: Medical: Not on file Non-medical: Not on file Tobacco Use Smoking status: Never Smoker Smokeless tobacco: Never Used Substance and Sexual Activity Alcohol use: Never Frequency: Never Drug use: Never Sexual activity: Not Currently Lifestyle Physical activity: Days per week: Not on file Minutes per session: Not on file Stress: Not on file Relationships Social connections: Talks on phone: Not on file Gets together: Not on file Attends restorationist service: Not on file Active member of club or organization: Not on file Attends meetings of clubs or organizations: Not on file Relationship status: Not on file Intimate partner violence: Fear of current or ex partner: Not on file Emotionally abused: Not on file Physically abused: Not on file Forced sexual activity: Not on file Other Topics Concern Not on file Social History Narrative Not on file Exercise: walking Performance status: ECOG 2 Child-bearing : ineligible Lives with: cat Occupation: retired, client experience administrator at [employer] ROS: Pertinent items are noted in HPI. Exam: Visit Vitals BP 115/65 Ht 1.524 m (5') Wt 131 lb (59.4 kg) ? No BMI 25.58 kg/m General: Pleasant, A&Ox3, NAD, Obese HEENT: Normal, CN 2-12 grossly intact Heart auscultation: WNL No abnormally enlarged lymph nodes. Respiratory Auscultation: WNL Respiratory Effort: WNL Abdomen: abdomen is soft without significant tenderness, Fluid thrill absent, Abdomino- pelvic masses absent, no organomegaly or guarding Extremities: WNL including deep tendon reflexes Skin: WNL External Genitalia: WNL Urethral Meatus: WNL Bladder:WNL exam chaperoned by nurse REUBEN within normal limits, narrow introitus, mass seen prolapsing through cervix into vagina, Uterus Size Normal, firm, adnexa normal, rectal smooth, prolapsing mass palpablefrom cervix, nodularity absent, parametria normal. Patient tolerated exam. Verbal consent for biopsy was obtained. Prolapsing vaginal mass was biopsiedwith difficulty. Monsel's solution was applied and good hemostasis was noted. Assessment/Differential Diagnosis: DD: includes endometrial benign and malignant masses Encounter Diagnoses Name Primary? Vaginal mass Yes PMB (postmenopausal bleeding) Plan: Recommendations: We discussed that management options depend on the results of the biopsy today. Possibilities include benign endometrial polyp, endometrial hyperplasia or malignancy. Benign masses can be managed with hysteroscopy D&C, while if malignant, would recommend proceeding with an Robotic assisted, total Laparoscopic hysterectomy, possible bilateral salpingo-oophorectomy and staging / debulking as indicated, possible open. All of the patient's questions were answered, and I believe she understood the information we provided. We will call with the results of the biopsy. Patient seen and discussed with Dr. Valente. Regina Tran MD PGY-2, ARMATURE REWINDER PCP: Mireya Finnegan MD FAX: [phone] documented in this encounter Plan of Treatment Health Maintenance Due Date Last Done Comments MMR Vaccines (1 of 1 - Standard 1933 series) DTaP,Tdap,and Td Vaccines (1 - 1939 Tdap) Zoster Vaccines (1 of 2) 1982 Osteoporosis Screening 2 yr 1997 Pneumococcal Vaccine: 65+ Years (1 1997 of 2 - PCV13) Influenza Vaccine 05/14/2019 HIB Vaccines Aged Out No longer eligible based on patient's age to complete this topic Hepatitis A Vaccines Aged Out No longer eligible based on patient's age to complete this topic Hepatitis B Vaccines Aged Out No longer eligible based on patient's age to complete this topic IPV Vaccines Aged Out No longer eligible based on patient's age to complete this topic Pneumococcal Vaccine: Pediatrics Aged Out No longer eligible based on (0 to 5 Years) and At-Risk patient's age to complete this Patients (6 to 64 Years) topic Varicella Vaccines Aged Out No longer eligible based on patient's age to complete this topic documented as of this encounter Procedures Procedure Name Priority Date/Time Associated Diagnosis Comments SURGICAL PATHOLOGY EXAM ( Routine 07/02/2019 Vaginal mass ONLY) PMB (postmenopausal bleeding) documented in this encounter Results Surgical Pathology Exam ( Only) (07/02/2019) Narrative Performed At Performing Organization Address City/State/Zipcode Phone Number EXTERNAL NON-INTERFACED LAB Comprehensive Metabolic Panel (07/01/2019 12:22 PM EST) Albumin 3.9 3.5 - 5.2 g/dL [facility] Bilirubin, Total 0.4 <1.2 mg/dL [facility] Calcium 9.8 8.8 - 10.2 [facility] mg/dL [facility] Chloride 92 (L) 98 - 107 mmol/L [facility] Creatinine 0.89 0.50 - 0.90 [facility] mg/dL [facility] Glucose 133 70 - 140 mg/dL [facility] Alkaline Phosphatase 82 35 - 104 U/L [facility] Potassium 3.5 3.4 - 5.1 [facility] mmol/L [facility] Total Protein 7.3 6.4 - 8.3 g/dL [facility] Sodium 134 (L) 136 - 145 [facility] mmol/L [facility] AST/SGO 21 <32 U/L [facility] Blood Urea Nitrogen 12 8 - 23 mg/dL [facility] Osmolality, Edu 280 275 - 300 [facility] mosm/kg [facility] BUN/Cre Ratio 13 [facility] Bicarbonate 26 22 - 29 mmol/L [facility] ALT/SGP 17 <33 U/L [facility] Anion Gap 16 (H) 8 - 15 mmol/L [facility] A/G Ratio 1.1 [facility] GFR Non >90 >60 [facility] Georgian 2009 CDK-EPI mL/min/1.73m2 [facility] GFR >90 >60 [facility] 2009 CKD-EPI mL/min/1.73m2 [facility] Specimen Plasma Performing Organization Address City/State/Zipcode Phone Number [facility] [address] [place] [address] [facility] [address] [place] [address] Pathology CBC and Differential (07/01/2019 12:22 PM EST) White Blood Cell 10.3 (H) 4 - 10 [facility] 10*3/uL [facility] Red Blood Cell 4.05 (L) 4.1 - 5.3 [facility] 10*6/uL [facility] Hemoglobin 11.4 (L) 11.5 - 15.5 [facility] g/dL [facility] Hematocrit 36.5 36 - 45 % [facility] Mean Cell Volume 90.0 80 - 96 fL [facility] Mean Cell Hemoglobin 28.2 27 - 33 pg [facility] Mean Cell Hgb Conc 31.3 (L) 32.0 - 36.0 [facility] g/dL [facility] Red Cell Dist Width 13.4 11.5 - 14.5 % [facility] Platelet Count 544 (H) 150 - 400 [facility] 10*3/uL [facility] Differential Type Automated Diff [facility] Neutrophil 80 % [facility] Lymphocyte 13 % [facility] Monocyte 5 % [facility] Eosinophil 1 % [facility] Basophil 1 % [facility] Abs Neutrophil 8.27 (H) 1.8 - 7.0 [facility] 10*3/uL [facility] Abs Lymphocyte 1.36 1.2 - 4.0 [facility] 10*3/uL [facility] Abs Monocyte 0.50 0 - 0.8 [facility] 10*3/uL [facility] Abs Eosinophil 0.06 0 - 0.5 [facility] 10*3/uL [facility] Abs Basophil 0.06 0 - 0.2 [facility] 10*3/uL [facility] Nucleated Red Blood 0 0 - 0 [facility] Cells /100{WBCs} [facility] Specimen EDTA Whole Blood Performing Organization Address City/State/Zipcode Phone Number [facility] CL[facility] [address] [place] [address] [facility] [address] [place] [address] Pathology documented in this encounter Visit Diagnoses Diagnosis Vaginal mass - Primary Other specified symptom associated with female genital organs PMB (postmenopausal bleeding) Postmenopausal bleeding documented in this encounter
--- OUTSIDE RECORDS SUMMARY | 2019-07-16 15:36 | XMS REPORT | Summary of Care ---
:1930 Author Organization [facility] Address [address] [place] [address] Care Team Providers Name Role Phone Unavailable Primary Care Provider Unavailable Encounter Details Date Type Department Care Team Description 07/01/2019 Hospital Encounter [facility] Pathology Vaginal mass; Laboratory and PSC at PMB (postmenopausal bleeding) [facility] [address] [place] [id number] Allergies Active Allergy Reactions Severity Noted Date Comments Aspirin Other (See Comments) 07/01/2019 Upset stomach documented as of this encounter (statuses as of 07/02/2019) Medications Medication Sig Dispensed Refills Start Date [...] as of this encounter (statuses as of 07/02/2019) Active Problems Problem Noted Date Vaginal mass 07/01/2019 PMB (postmenopausal bleeding) 07/01/2019 documented as of this encounter (statuses as of 07/02/2019) Social History Tobacco Use Types Packs/Day Years Used Date Never Smoker 0 Smokeless Tobacco: Never Used Alcohol Use Drinks/Week oz/Week Comments Never Alcohol [...] of this encounter Last Filed Vital Signs Not on filedocumented in this encounter Plan of Treatment Health [...] encounter Procedures Procedure Name Priority Date/Time Associated Comments Diagnosis CBC AND DIFFERENTIAL Routine 07/01/2019 12:22 Vaginal mass Results for this PM EST PMB (postmenopausal procedure are in bleeding) the results section. COMPREHENSIVE Routine 07/01/2019 12:22 Vaginal mass Results for this METABOLIC PANEL PM EST PMB (postmenopausal procedure are in bleeding) the results section. documented in this encounter Results CBC and Differential (07/01/2019 12:22 PM EST) White Blood Cell 10.3 (H) 4 - 10 [facility] 10*3/uL [facility] Red Blood Cell 4.05 (L) 4.1 - 5.3 [facility] 10*6/uL [facility] Hemoglobin 11.4 (L) 11.5 - 15.5 [facility] g/dL [facility] Hematocrit 36.5 36 - 45 % [facility] Mean Cell Volume 90.0 80 - 96 fL [facility] Clin Pathology Mean Cell Hemoglobin 28.2 27 - 33 pg [facility] Pathology Mean Cell Hgb Conc 31.3 (L) 32.0 - 36.0 [facility] g/dL [facility] Pathology Red Cell Dist Width 13.4 11.5 - 14.5 % [facility] Pathology Platelet Count 544 (H) 150 - 400 [facility] 10*3/uL [facility] Differential Type Automated Diff [facility] Neutrophil 80 % [facility] Lymphocyte 13 % [facility] Monocyte 5 % [facility] Eosinophil 1 % [facility]ology Basophil 1 % [facility] Clin Pathology Abs Neutrophil 8.27 (H) 1.8 - 7.0 [facility] 10*3/uL [facility] Abs Lymphocyte 1.36 1.2 - 4.0 [facility] 10*3/uL [facility] Abs Monocyte 0.50 0 - 0.8 [facility] 10*3/uL [facility] Abs Eosinophil 0.06 0 - 0.5 [facility] 10*3/uL [facility]ology Abs Basophil 0.06 0 - 0.2 [facility] 10*3/uL [facility] Pathology Nucleated Red Blood 0 0 - 0 [facility] Cells /100{WBCs} [facility] Clin Pathology Specimen EDTA Whole Blood Performing Organization Address City/State/Zipcode Phone Number [facility] [address] [place] [address] [phone] [facility] [address] [place] [address] Pathology Comprehensive Metabolic Panel (07/01/2019 12:22 PM EST) Albumin 3.9 3.5 - 5.2 g/dL [facility] Pathology Bilirubin, Total 0.4 <1.2 mg/dL [facility] Pathology Calcium 9.8 8.8 - 10.2 [facility] mg/dL [facility] Chloride 92 (L) 98 - 107 mmol/L [facility] Pathology Creatinine 0.89 0.50 - 0.90 [facility] mg/dL [facility] Glucose 133 70 - 140 mg/dL [facility] Pathology Alkaline Phosphatase 82 35 - 104 U/L [facility] Pathology Potassium 3.5 3.4 - 5.1 [facility] mmol/L [facility] Total Protein 7.3 6.4 - 8.3 g/dL [facility] Pathology Sodium 134 (L) 136 - 145 [facility] mmol/L [facility] AST/SGO 21 <32 U/L [facility] Pathology Blood Urea Nitrogen 12 8 - 23 mg/dL [facility] Pathology Osmolality, Edu 280 275 - 300 [facility] mosm/kg [facility]ology BUN/Cre Ratio 13 [facility] Pathology Bicarbonate 26 22 - 29 mmol/L [facility] Pathology ALT/SGP 17 <33 U/L [facility] Pathology Anion Gap 16 (H) 8 - 15 mmol/L [facility] Pathology A/G Ratio 1.1 [facility] Pathology GFR Non >90 >60 [facility] Turkish 2009 CDK-EPI mL/min/1.73m2 [facility]ology GFR >90 >60 [facility] 2009 CKD-EPI mL/min/1.73m2 [facility] Clin Pathology Specimen Plasma Performing Organization Address City/State/Zipcode Phone Number [facility] [address] [place] [address] [phone] [facility] [address] [place] [address] Pathology documented in this encounter Visit Diagnoses Diagnosis Vaginal mass Other specified symptom associated with female genital organs PMB (postmenopausal bleeding) Postmenopausal bleeding documented in this encounter
[2019-07-16] MEDS: Acetaminophen TAB* 325 MG PO PRN (15:55)
[2019-07-16] MEDS: Senna TAB 8.6 mg* TAB PO SCH (21:09)
[2019-07-17 05:18] LABS: BUN/Creatinine Ratio 30.1 (8-20); C Reactive Protein 223.51 mg/L (<8.01); EGFR African American 78.7 (>60); Potassium 4.4 mmol/L (3.5-5.0)
[2019-07-17] MEDS: CMC:Rosuvastatin (NF) 5 MG TAB PO SCH (09:28)
[2019-07-17] MEDS: Escitalopram * 10 MG TAB PO SCH (09:28)
[2019-07-17] MEDS: Cyanocobalamin TAB* 500 MCG PO SCH (09:31)
[2019-07-17] MEDS: Apixaban* 2.5 MG TAB PO SCH ×2 (09:31→21:22)
[2019-07-17] MEDS: Digoxin TAB* 0.25 MG PO SCH (09:31)
[2019-07-17] MEDS: Ferrous Sulfate TAB* 325 MG PO SCH (09:32)
[2019-07-17] MEDS: Metoprolol Succinate XL TAB* 50 MG PO SCH ×2 (09:32→21:22)
[2019-07-17] MEDS: cefTRIAXone(*) 1 GM in NS 0.9% 50 ML* 50 ML IVPB SCH (09:37)
--- NOTE | 2019-07-17 10:50 | CONSULT ---
Palliative / Hospice Consult Ordering Provider: Edel Hughes - PCP-Kain Referal Reason: Goals of care/docusate & senna/no narcotics - Subjective Code Status: DNR Advance Directives Location: No Advance Directives MOLST Part A Completed: Yes - completed with family & pt MOLST Part E Completed:: Yes - completed with family & pt - History or Present Illness History or Present Illness: 89yo female brought to ER via ambulance because not able to care for herself. PMH is significant for HTN, CVA, sick sinus syndrome, TIA, GERD, aflutter, afib , uterine polyp, affective disorder, depression, osteoarthritis, hyperlipidemai , DM type2 vertigo and h/o [place]. PSHx pt lives alone with her cat, nephew Nicholas and his ex Pat check in almost daily, non smoker, no drugs & no etoh. Studies EKG-afib,CXR-neg, abd/pel CT large histal hernia, small R>L pleural effusion, cardiomegaly and enlarged uterus, H/H 9.4/29, BUN/Cr 9/.63, egfr 89.4 , alb 3.3, CRP 167.38 and UC grew P. Mirabilis and E.Coli. Pt admitted with afib RVR, UTI, dehydration and failure to thrive. Pt has no prior admissions. All history is from pt, family and medical record. Lab Values: Abnormal Lab Results 07/17/19 04:34 Sodium 135 Potassium 4.4 Chloride 102 Carbon Dioxide 26 Anion Gap 7 BUN 25 H Creatinine 0.83 Est GFR ( Amer) 78.7 Est GFR (Non-Af Amer) 65.0 BUN/Creatinine Ratio 30.1 H Glucose 135 H Calcium 9.0 C-Reactive Protein 223.51 H Laboratory Last Values WBC 12.1 10^3/uL (3.5-10.8) H 07/16/19 05:24 RBC 3.44 10^6 /uL (3.70-4.87) L 07/16/19 05:24 Hgb 9.9 g/dL (12.0-16.0) L 07/16/19 05:24 Hct 30 % (35-47) L 07/16/19 05:24 MCV 86 fL (80-97) 07/16/19 05:24 MCH 29 pg (27-31) 07/16/19 05:24 MCHC 33 g/dL (31-36) 07/16/19 05:24 RDW 14 % (10-15) 07/16/19 05:24 Plt Count 472 10^3/uL (150-450) H D 07/16/19 05:24 MPV 8.1 fL (7.4-10.4) 07/16/19 05:24 Neut % (Auto) 80.6 % 07/16/19 05:24 Lymph % (Auto) 11.4 % 07/16/19 05:24 Rhea % (Auto) 7.8 % 07/16/19 05:24 Eos % (Auto) 0.0 % 07/16/19 05:24 Baso % (Auto) 0.2 % 07/16/19 05:24 Absolute Neuts (auto) 9.7 10^3/ul (1.5-7.7) H 07/16/19 05:24 Absolute Lymphs (auto) 1.4 10^3/ul (1.0-4.8) 07/16/19 05:24 Absolute Monos (auto) 0.9 10^3/ul (0-0.8) H 07/16/19 05:24 Absolute Eos (auto) 0.0 10^3/ul (0-0.6) 07/16/19 05:24 Absolute Basos (auto) 0.0 10^3/ul (0-0.2) 07/16/19 05:24 Absolute Nucleated RBC 0.0 10^3/ul 07/16/19 05:24 Nucleated RBC % 0.1 07/16/19 05:24 Sodium 135 mmol/L (135-145) 07/17/19 04:34 Potassium 4.4 mmol/L (3.5-5.0) 07/17/19 04:34 Chloride 102 mmol/L (101-111) 07/17/19 04:34 Carbon Dioxide 26 mmol/L (22-32) 07/17/19 04:34 Anion Gap 7 mmol/L (2-11) 07/17/19 04:34 BUN 25 mg/dL (6-24) H 07/17/19 04:34 Creatinine 0.83 mg/dL (0.51-0.95) 07/17/19 04:34 Est GFR ( Amer) 78.7 (>60) 07/17/19 04:34 Est GFR (Non-Af Amer) 65.0 (>60) 07/17/19 04:34 BUN/Creatinine Ratio 30.1 (8-20) H 07/17/19 04:34 Glucose 135 mg/dL (70-100) H 07/17/19 04:34 Hemoglobin A1c 7.0 % (4.0-5.6) H 07/13/19 17:51 Lactic Acid 1.2 mmol/L (0.5-2.0) 07/13/19 13:46 Calcium 9.0 mg/dL (8.6-10.3) 07/17/19 04:34 Phosphorus 3.2 mg/dL (2.5-5.0) 07/16/19 05:24 Magnesium 2.2 mg/dL (1.9-2.7) 07/14/19 05:53 Iron < 20 ug/dL (50-212) L 07/15/19 05:30 TIBC 168 mcg/dL (250-450) L 07/15/19 05:30 % Saturation 12 % (15-55) L 07/15/19 05:30 Unsat Iron Binding < 153 ug/dL 07/15/19 05:30 Transferrin 120 mg/dL (203-362) L 07/15/19 05:30 Ferritin 191.2 ng/mL (11-307) 07/15/19 05:30 Total Bilirubin 0.60 mg/dL (0.2-1.0) 07/13/19 13:45 AST 18 U/L (13-39) 07/13/19 13:45 ALT 17 U/L (7-52) 07/13/19 13:45 Alkaline Phosphatase 71 U/L (34-104) 07/13/19 13:45 Troponin I 0.04 ng/mL (<0.03) H* 07/13/19 17:51 C-Reactive Protein 223.51 mg/L (<8.01) H 07/17/19 04:34 Total Protein 6.7 g/dL (6.4-8.9) 07/13/19 13:45 Albumin 3.3 g/dL (3.2-5.2) 07/13/19 13:45 Globulin 3.4 g/dL (2-4) 07/13/19 13:45 Albumin/Globulin Ratio 1.0 (1-3) 07/13/19 13:45 Prealbumin 7 mg/dL (18-38) L 07/15/19 05:30 Vitamin B12 467 pg/mL (180-914) 07/15/19 05:30 Folate 7.59 ng/mL (>3.99) 07/15/19 05:30 TSH 0.81 mcIU/mL (0.34-5.60) 07/13/19 13:45 Urine Color Melina 07/14/19 08:04 Urine Appearance Turbid 07/14/19 08:04 Urine pH 7.0 (5-9) 07/14/19 08:04 Ur Specific [place] 1.019 (1.010-1.030) 07/14/19 08:04 Urine Protein 2+(100 mg/dl) (Negative) A 07/14/19 08:04 Urine Ketones Negative (Negative) 07/14/19 08:04 Urine Blood 3+ (Negative) A 07/14/19 08:04 Urine Nitrate Negative (Negative) 07/14/19 08:04 Urine Bilirubin Negative (Negative) 07/14/19 08:04 Urine Urobilinogen Positive (Negative) A 07/14/19 08:04 Ur Leukocyte Esterase 3+ (Negative) A 07/14/19 08:04 Urine WBC (Auto) 3+(>20/hpf) (Absent) A 07/14/19 08:04 Urine RBC (Auto) 3+(>10/hpf) (Absent) A 07/14/19 08:04 Ur Squamous Epith Cells Present (Absent) A 07/14/19 08:04 Urine Bacteria 2+ (Absent) A 07/14/19 08:04 Urine Glucose Negative (Negative) 07/14/19 08:04 Digoxin < 0.3 ng/ml (0.8-2.0) L 07/15/19 05:30 - Objective Active Medications: Acetaminophen (Tylenol Tab*) 650 mg PO Q4H PRN PRN Reason: MILD PAIN or TEMP > 100.4 Last Admin: 07/16/19 15:55 Dose: 650 mg Apixaban (Eliquis*) 2.5 mg PO BID TAVO Last Admin: 07/17/19 09:31 Dose: 2.5 mg Cyanocobalamin (Vitamin B12 Tab*) 1,[address] [facility] Last Admin: 07/17/19 09:31 Dose: 1,000 mcg Digoxin (Lanoxin Tab*) 0.[address] [facility] Last Admin: 07/17/19 09:31 Dose: 0.25 mg Docusate Sodium (Colace Cap*) 100 mg PO BID PRN PRN Reason: CONSTIPATION Escitalopram Oxalate (Lexapro *) [address] [facility] Last Admin: 07/17/19 09:28 Dose: 15 mg Ferrous Sulfate (Ferrous Sulfate Tab*) 325 mg PO EVERY OTHER DAY [facility] Last Admin: 07/17/19 09:32 Dose: 325 mg Ceftriaxone Sodium 1 gm/ (Sodium Chloride) 50 mls @ 100 mls/hr IVPB Q24H [facility] Last Admin: 07/17/19 09:37 Dose: 100 mls/hr Lorazepam (Ativan Inj*) 0.5 mg IV PUSH Q4H PRN PRN Reason: ANXIETY Magnesium Hydroxide (Milk Of Magnesia Liq*) 30 ml PO Q6H PRN PRN Reason: CONSTIPATION Metoprolol Succinate (Toprol Xl Tab*) [address] [facility] Last Admin: 07/17/19 09:32 Dose: 75 mg Miscellaneous (Ativan Pyxis [place]) 1 ea N/A .ATIVAN IV OBREGON PRN PRN Reason: PYXIS OBREGON Rosuvastatin Calcium (Crestor (Nf)) 5 mg PO MoWeFr@0900 [facility]; Protocol Last Admin: 07/17/19 09:28 Dose: 5 mg Senna (Senokot 8.6 Mg Tab*) [address] [facility] Last Admin: 07/16/19 21:09 Dose: 1 tab Vital Signs: Vital Signs: Temp Pulse Resp BP Pulse Ox 97.5 F 85 20 106/66 93 07/17/19 07:49 07/17/19 09:31 07/17/19 09:59 07/17/19 07:49 07/17/19 07:49 Patient Weight: Weight 45.904 kg Intake and Output: Intake & Output 07/15/19 07/16/19 07/17/19 07/18/19 06:59 06:59 06:59 06:59 Intake Total 4171 1187 365 600 Output Total 0 0 Balance 4171 1187 365 600 Intake: IV Fluids 2883 487 20 NS (0.9%) 883 487 20 IVPB 1228 50 55 NS (0.9%) 1178 50 55 Oral 60 650 290 600 Output: Urine 0 0 Other: Estimated Void Large Medium # Bowel Movements 1 1 Estimated Stool Amount Large Medium Medium # Voids 1 3 4 ADLs: Meal Record Start: 07/13/19 18: 13 Freq: DAILY@0900,1400,1800 Status: Active Protocol: Created 07/13/19 18:13 System (Rec: 07/13/19 18:13 System TELE-C15) Document 07/14/19 09:00 [id number] (Rec: 07/14/19 11:10 [id number] TELE-C11) Document 07/14/19 14:00 [id number] (Rec: 07/14/19 14:25 [id number] TELE-C11) Document 07/14/19 18:00 [id number] (Rec: 07/14/19 18:01 [id number] TELE-C01) Document 07/15/19 09:00 [id number] (Rec: 07/15/19 09:11 [id number] TELE-C09) Document 07/15/19 13:17 [id number] (Rec: 07/15/19 13:17 [id number] TELE-C09) Document 07/15/19 18:00 [id number] (Rec: 07/15/19 18:27 [id number] TELE-C06) Document 07/16/19 08:45 [id number] (Rec: 07/16/19 08:45 [id number] TELE-C09) Document 07/16/19 13:54 [id number] (Rec: 07/16/19 13:54 [id number] TELE-C11) Document 07/16/19 17:42 [id number] (Rec: 07/16/19 17:43 [id number] TELE-C11) Document 07/17/19 09:00 [id number] (Rec: 07/17/19 09:34 [id number] TELE-C11) Intake and Output Start: 07/13/19 18: 13 Freq: DAILY@0600,1400,2200 Status: Active Protocol: Created 07/13/19 18:13 System (Rec: 07/13/19 18:13 System TELE-C15) Document 07/14/19 14:05 [id number] (Rec: 07/14/19 14:06 ISI0950 TELE-M06) Document 07/14/19 21:43 [id number] (Rec: 07/14/19 21:45 [id number] TELE-C07) Document 07/15/19 05:58 [id number] (Rec: 07/15/19 06:01 [id number] TELE-C07) Document 07/15/19 13:32 [id number] (Rec: 07/15/19 13:32 [id number] TELE-C09) Document 07/15/19 21:28 [id number] (Rec: 07/15/19 21:29 [id number] TELE-C05) Document 07/16/19 06:00 [id number] (Rec: 07/16/19 06:20 [id number] TELE-C09) Document 07/16/19 13:55 [id number] (Rec: 07/16/19 13:55 [id number] TELE-C11) Document 07/16/19 22:00 [id number] (Rec: 07/16/19 22:18 [id number] TELE-C10) Document 07/17/19 06:00 [id number] (Rec: 07/17/19 06:50 [id number] TELE-M06) Document 07/17/19 09:34 [id number] (Rec: 07/17/19 09:34 [id number] TELE-C11) Eyes: No Scleral Icterus Ears/Nose/Mouth/Throat: Mucous Membranes Moist Neck: Trachea Midline Cardiovascular: NL Sounds; No Murmurs; No JVD, - - Normal S1 and S2, irregularly irregular Respiratory: Symmetrical Chest Expansion and Respiratory Effort Abdominal: NL Sounds; No Tenderness; No Distention - A&O x2 not sure of date, - - Soft, mild hypogastric tenderness, NG, NR, BS+ Neurological: - - AAOx2 (self and place), MARSHALL - Assessment Assessment: 89yo female admitted with afib, UTI and failure to thrive - Plan Consult Plan (MU): Palliative Plan: Met with nephew separately and with pt and nephew's ex to discuss goals of care. Pt has no insight to her health issues and diminished ability to care for her self which was validated by Dr Browne when he said she doesn't have capacity regarding making a decision for TANIA. According to nephew pt has not been taking her meds, has not been ambulating and has lost weight overall she has been declining the last 2 months. He was worried for her safety and ability to care for herself. We discussed health care proxy and pt designated her nephew Nicholas. We also discussed MOLST form, she has signed a DNR in 2017. Today she still doesn't want CPR, no intubation and no feeding tube. She also declined noninvasive ventilation stating it didn't help her sister when she was in the ICU. Pt would prefer to go home but she has refused home health aides in the past and doesn't acknowledge she needs more help at home. The plan is for pt to go to [facility] for rehab if she does well maybe she can return home. KPS 60 %,PPS 60% - Time On Unit Date of Evaluation: 07/17/19 Hospice Consult Time in: 09:00 Hospice Consult Time Out: 10:00 Hospice Consult Time Total: 60 > 50% of Time Spend In Counseling or Coordinating Care: Yes
[2019-07-17] MEDS: Acetaminophen TAB* 325 MG PO PRN (11:23)
[2019-07-17] MEDS: Senna TAB 8.6 mg* TAB PO SCH (21:22)
[2019-07-18] MEDS: Acetaminophen TAB* 325 MG PO PRN ×2 (04:01→15:59)
[2019-07-18 05:49] LABS: ABS Lymphocytes 1.8 10^3/ul (1.0-4.8); ABS Monocytes 1.1 10^3/ul (0-0.8); ABS Neutrophils 11.1 10^3/ul (1.5-7.7); ABS Nucleated RBC 0.1 10^3/ul; Eosinophil % 0.3 %; Hematocrit 29 % (35-47); Hemoglobin 9.6 g/dL (12.0-16.0); Lymphocyte % 12.6 %; Mean Corpuscular HGB Conc 33 g/dL (31-36); Mean Corpuscular Hemoglobin 28 pg (27-31); Mean Corpuscular Volume 87 fL (80-97); Mean Platelet Volume 8.3 fL (7.4-10.4); Nucleated Red Blood Cells % 0.6; Platelet Count 481 10^3/uL (150-450); Red Cell Distribution Width 14 % (10-15); White Blood Count 14.1 10^3/uL (3.5-10.8)
[2019-07-18 06:19] LABS: BUN/Creatinine Ratio 29.7 (8-20); C Reactive Protein 217.42 mg/L (<8.01); Calcium 8.7 mg/dL (8.6-10.3); EGFR African American 89.8 (>60); EGFR Non-African American 74.2 (>60); Potassium 4.2 mmol/L (3.5-5.0)
[2019-07-18] MEDS: cefTRIAXone(*) 1 GM in NS 0.9% 50 ML* 50 ML IVPB SCH (07:51)
[2019-07-18] MEDS: Digoxin TAB* 0.25 MG PO SCH (08:04)
[2019-07-18] MEDS: Apixaban* 2.5 MG TAB PO SCH ×2 (08:04→21:33)
[2019-07-18] MEDS: Escitalopram * 10 MG TAB PO SCH (08:05)
[2019-07-18] MEDS: Cyanocobalamin TAB* 500 MCG PO SCH (08:05)
[2019-07-18] MEDS: Metoprolol Succinate XL TAB* 50 MG PO SCH ×2 (08:06→21:33)
[2019-07-18] MEDS ORDERED: Piperacillin/Tazobac ADVAN(*) 3.375 GM in NS 0.9% 100 ML* 100 ML IVPB ONE ×2 (14:49→14:50)
[2019-07-18] MEDS ORDERED: Zosyn per Pharmacy* NOTE FOLLOW UP SCH (15:00)
[2019-07-18] MEDS: ZOSYN 3.375 GM Q8H per EXTENDED INFUSION IVPB SCH ×2 (19:36)
[2019-07-18] MEDS: Senna TAB 8.6 mg* TAB PO SCH (21:33)
[2019-07-19] MEDS: ZOSYN 3.375 GM Q8H per EXTENDED INFUSION IVPB SCH ×6 (03:49→23:20)
[2019-07-19 05:09] LABS: ABS Eosinophils 0.1 10^3/ul (0-0.6); ABS Lymphocytes 1.7 10^3/ul (1.0-4.8); ABS Nucleated RBC 0.1 10^3/ul; Hematocrit 29 % (35-47); Hemoglobin 9.5 g/dL (12.0-16.0); Lymphocyte % 13.6 %; Mean Corpuscular HGB Conc 33 g/dL (31-36); Mean Corpuscular Hemoglobin 28 pg (27-31); Mean Corpuscular Volume 87 fL (80-97); Mean Platelet Volume 8.1 fL (7.4-10.4); Platelet Count 487 10^3/uL (150-450); Red Blood Count 3.35 10^6 /uL (3.70-4.87); Red Cell Distribution Width 14 % (10-15); White Blood Count 12.8 10^3/uL (3.5-10.8)
[2019-07-19] MEDS: Acetaminophen TAB* 325 MG PO PRN ×2 (08:32→16:51)
[2019-07-19] MEDS: Escitalopram * 10 MG TAB PO SCH (08:32)
[2019-07-19] MEDS: Ferrous Sulfate TAB* 325 MG PO SCH (08:33)
[2019-07-19] MEDS: Apixaban* 2.5 MG TAB PO SCH (08:33)
[2019-07-19] MEDS: Digoxin TAB* 0.25 MG PO SCH (08:34)
[2019-07-19] MEDS: CMC:Rosuvastatin (NF) 5 MG TAB PO SCH (08:34)
[2019-07-19] MEDS: Metoprolol Succinate XL TAB* 50 MG PO SCH (08:39)
[2019-07-19] MEDS: Cyanocobalamin TAB* 500 MCG PO SCH (08:40)
[2019-07-20] MEDS: Apixaban* 2.5 MG TAB PO SCH ×3 (00:07→21:29)
[2019-07-20] MEDS: Metoprolol Succinate XL TAB* 50 MG PO SCH ×3 (00:07→21:34)
[2019-07-20] MEDS: Senna TAB 8.6 mg* TAB PO SCH ×2 (00:08→21:35)
[2019-07-20] MEDS: ZOSYN 3.375 GM Q8H per EXTENDED INFUSION IVPB SCH ×8 (04:43→21:29)
[2019-07-20 06:22] LABS: ABS Eosinophils 0.2 10^3/ul (0-0.6); ABS Lymphocytes 1.5 10^3/ul (1.0-4.8); ABS Monocytes 0.8 10^3/ul (0-0.8); ABS Neutrophils 8.9 10^3/ul (1.5-7.7); ABS Nucleated RBC 0.1 10^3/ul; Eosinophil % 1.9 %; Hematocrit 29 % (35-47); Hemoglobin 9.3 g/dL (12.0-16.0); Lymphocyte % 13.2 %; Mean Corpuscular HGB Conc 32 g/dL (31-36); Mean Corpuscular Hemoglobin 28 pg (27-31); Mean Corpuscular Volume 88 fL (80-97); Mean Platelet Volume 7.8 fL (7.4-10.4); Nucleated Red Blood Cells % 0.5; Platelet Count 491 10^3/uL (150-450); Red Cell Distribution Width 14 % (10-15); White Blood Count 11.4 10^3/uL (3.5-10.8)
[2019-07-20 06:37] LABS: C Reactive Protein 155.78 mg/L (<8.01)
[2019-07-20 07:00] LABS: Digoxin 1.3 ng/ml (0.8-2.0)
[2019-07-20] MEDS: Acetaminophen TAB* 325 MG PO PRN ×2 (07:55→11:50)
[2019-07-20] MEDS: Escitalopram * 10 MG TAB PO SCH (08:14)
[2019-07-20] MEDS: Digoxin TAB* 0.25 MG PO SCH (08:17)
[2019-07-20] MEDS: Cyanocobalamin TAB* 500 MCG PO SCH (08:18)
[2019-07-21] MEDS: ZOSYN 3.375 GM Q8H per EXTENDED INFUSION IVPB SCH ×6 (04:01→19:48)
[2019-07-21] MEDS: Acetaminophen TAB* 325 MG PO PRN (10:12)
[2019-07-21] MEDS: Escitalopram * 10 MG TAB PO SCH (10:17)
[2019-07-21] MEDS: Metoprolol Succinate XL TAB* 50 MG PO SCH ×2 (10:18→20:18)
[2019-07-21] MEDS: Cyanocobalamin TAB* 500 MCG PO SCH (10:19)
[2019-07-21] MEDS: Ferrous Sulfate TAB* 325 MG PO SCH (10:19)
[2019-07-21] MEDS: Digoxin TAB* 0.25 MG PO SCH (11:00)
[2019-07-21] MEDS: Apixaban* 2.5 MG TAB PO SCH (11:00)
[2019-07-21 11:28] LABS: ABS Eosinophils 0.1 10^3/ul (0-0.6); ABS Lymphocytes 1.1 10^3/ul (1.0-4.8); ABS Monocytes 0.9 10^3/ul (0-0.8); ABS Neutrophils 11.6 10^3/ul (1.5-7.7); Eosinophil % 0.5 %; Hematocrit 29 % (35-47); Hemoglobin 9.2 g/dL (12.0-16.0); Lymphocyte % 7.9 %; Mean Corpuscular HGB Conc 32 g/dL (31-36); Mean Corpuscular Hemoglobin 28 pg (27-31); Mean Corpuscular Volume 86 fL (80-97); Mean Platelet Volume 7.7 fL (7.4-10.4); Nucleated Red Blood Cells % 0.2; Platelet Count 509 10^3/uL (150-450); Red Blood Count 3.32 10^6 /uL (3.70-4.87); Red Cell Distribution Width 14 % (10-15); White Blood Count 13.7 10^3/uL (3.5-10.8)
[2019-07-21 11:30] LABS: BUN/Creatinine Ratio 14.3 (8-20); C Reactive Protein 132.85 mg/L (<8.01); Calcium 8.4 mg/dL (8.6-10.3); EGFR African American 123.9 (>60); EGFR Non-African American 102.4 (>60); Potassium 3.5 mmol/L (3.5-5.0)
[2019-07-21 12:18] LABS: Ferritin 344.8 ng/mL (11-307)
--- NOTE | 2019-07-21 14:02 | BRIEFOPN ---
Brief Operative/Procedure Note - Operation Details Pre-Op Diagnosis: Rt pleural effusion Post-Op Diagnosis: Rt pleural effusion, atelectasis Procedures: Thoracentesis with U/S guidance on right side Surgeon(s)/Proceduralists: michael Roberson Anesthesia: Local with 1% lidocaine 5cc Estimated Blood Loss: None Findings: Yellow, slightly turbid effusion Specimen(s)/Culture(s) Description: Fluid for cytology, biochem, cultures, cell count Complications: None
[2019-07-21 14:03] LABS: Body Fluid Source Pleural Fluid
[2019-07-21 14:45] LABS: Body Fluid Mono 26 %; Body Fluid Other Cells 1
--- NOTE | 2019-07-21 16:10 | CONS ---
PULMONARY CONSULTATION REPORT: DATE OF CONSULT: 07/21/19 CONSULTATION REQUESTED BY: Dr. Mireya Finnegan. REASON FOR CONSULT: Evaluation of pleural effusion. HISTORY OF PRESENT ILLNESS: The patient is an 89-year-old female with multiple medical problems. The patient has dementia and is not able to provide any history. She was admitted for evaluation of failure to thrive. She was not able to take care of herself at home. Her nephew is primary caregiver, is on the [employer] force and stated that she has not been taking her medications and not been eating well. She had gradual decline in her health. The patient has been having postmenopausal bleeding due to uterine polyps and is supposed to have D and C. The patient was found to be having atrial fibrillation with rapid ventricular response and was hospitalized for further evaluation of that. The patient has been having declining course since admission. Further evaluation during her hospitalization also revealed UTI and she was also noted to have pleural effusion bilaterally, little bit significant on the right side. Her chest x-ray on 07/13/19 showed small effusion. Abdominal/pelvis CT also showed small pleural effusions bilaterally, slightly larger on the right on the lung cuts. Repeat chest x-ray on 07/21/19 was also personally reviewed by me in comparison with prior chest x-rays and also the abdominal films. The patient noted to have increase in right pleural effusion and associated atelectasis. Given concern with parapneumonic effusion, thoracentesis was requested by her primary care physician. The patient was seen and examined at bedside. The patient is not able to provide any history. She is only able to give one-word answers to certain questions. The patient is, however, not in any distress at this time. PAST MEDICAL HISTORY: 1. Sick sinus syndrome. 2. CVA. 3. TIA. 4. Hypertension. 5. GERD. 6. Peripheral vascular disease. 7. Aflutter. 8. AFib. 9. Uterine polyps. 10. Persistent mood disorder. 11. Depression. 12. Osteoarthritis. 13. Dyslipidemia. 14. Type 2 diabetes. 15. Vertigo. 16. History of DE. PAST SURGICAL HISTORY: Left chest wall pacer placement and breast lumpectomy. MEDICATIONS: 1. Eliquis. 2. Crestor. 3. Lexapro. ALLERGIES: ASPIRIN and ATORVASTATIN. FAMILY HISTORY: Noncontributory. SOCIAL HISTORY: She lives at home with help of her nephew. REVIEW OF SYSTEMS: Limited secondary to the patient unable to provide much history. PHYSICAL EXAM: Vital Signs: Temperature 97.9, pulse 60 beats per minute, respiratory rate 20 per minute, O2 sat 98% on 3 L, blood pressure 153/71. HEENT : Pupils equal, reactive to light. Mucous membranes moist. Lungs: Diminished air entry bilaterally, right greater than left. Cardiovascular: S1, S2 present. Abdomen: Soft, nontender, nondistended. Bowel sounds present. Neuro : Able to move all extremities spontaneously. Skin: No rash. DIAGNOSTIC STUDIES/LAB DATA: WBC count 13.7, hemoglobin 9.2, hematocrit 29, platelet count 509. Sodium 133, potassium 3.5, chloride 97, bicarb 26, BUN 8, creatinine 0.56. Ammonia 39. Chest x-ray and CT abdomen as described above in HPI. IMPRESSION AND RECOMMENDATIONS: 89-year-old female with pleural effusions. The patient also with postmenopausal bleeding. Pleural effusion secondary to infectious versus neoplastic etiology. The patient had thoracentesis at bedside with removal of 250 cc of pleural fluid. The patient tolerated the procedure well. Postprocedure chest x-ray is pending at this time. The patient with evidence of yellow fluid, slightly turbid only. No complexities in the pleural space were noted. The patient is on broad-spectrum antibiotics. The patient is on Eliquis for history of atrial fibrillation. Eliquis to be restarted. Thank you for allowing me to participate in the care of your patient. Will follow up with pleural fluid results. [id number] #: [id number] KARIN
--- NOTE | 2019-07-21 18:46 | PRO ---
THORACENTESIS REPORT: DATE OF PROCEDURE: 07/21/19 PROCEDURE PERFORMED: Ultrasound-guided thoracentesis on the right side. PRE-PROCEDURAL DIAGNOSIS: Moderate right effusion. ANESTHESIA: Local anesthesia with 1% lidocaine. DESCRIPTION OF PROCEDURE: Informed consent was obtained from the patient prior to the procedure after all the risks and benefits were thoroughly explained. The patient could not give consent and consent was obtained from the patient's nephew. Appropriate time-out was performed and agreed on by the attending staff prior to the procedure. The patient was sat up with help. Strict aseptic precautions and barrier techniques were utilized. A portable ultrasound was utilized at the bedside to localize a [id number] amount of right effusion with associated atelectasis of the lung. The site was marked. The area was disinfected with chlorhexidine. A sterile drape was applied. [employer]usion 8-[employer] thoracentesis catheter was utilized for the purpose. Lidocaine 1% was instilled intradermally subcutaneously down into the pleural space taking precautions. A #11 scalpel blade was used to make a stab incision. [employer] 8-[employer] [place] thoracentesis catheter was subsequently inserted under manual suction taking precautions. The catheter was left in place and the needle was removed; 250 mL of slightly turbid yellow fluid was removed under manual suction. The catheter was then removed and a sterile Band- Aid applied. The patient tolerated the procedure well. Postprocedural chest x-ray was ordered and is pending at the time of dictation. Specimen was sent to the lab for further evaluation. [id number] #: [id number]
[2019-07-21] MEDS: Senna TAB 8.6 mg* TAB PO SCH (19:51)
[2019-07-22] MEDS: ZOSYN 3.375 GM Q8H per EXTENDED INFUSION IVPB SCH ×6 (03:07→19:59)
[2019-07-22] MEDS: CMC:Rosuvastatin (NF) 5 MG TAB PO SCH (08:18)
[2019-07-22] MEDS: Acetaminophen TAB* 325 MG PO PRN (08:19)
[2019-07-22] MEDS: Metoprolol Succinate XL TAB* 50 MG PO SCH ×2 (08:19→20:00)
[2019-07-22] MEDS: Digoxin TAB* 0.125 MG PO SCH (08:20)
[2019-07-22] MEDS: Cyanocobalamin TAB* 500 MCG PO SCH (08:21)
[2019-07-22] MEDS: Escitalopram * 10 MG TAB PO SCH (08:25)
[2019-07-22] MEDS: Apixaban* 2.5 MG TAB PO SCH ×2 (11:56→20:00)
--- NOTE | 2019-07-22 15:22 | PN ---
Progress Note - Progress Note Date of Service: 07/22/19 - Pulm f/u note Note: Pt seen and examined at bedside. Pt is resting comfortably in bed. Pt opens eyes to verbal stimuli Active Medications Generic Name Dose Route Start Last Admin Trade Name Freq PRN Reason Stop Dose Admin Acetaminophen 650 mg 07/13/19 17:04 07/22/19 08:19 Tylenol Tab* PO 650 mg Q4H PRN Administration MILD PAIN or TEMP > 100.4 Apixaban 2.5 mg 07/22/19 11:00 07/22/19 11:56 Eliquis* PO 2.5 mg BID TAVO Administration Cyanocobalamin 1,000 mcg 07/14/19 09:00 07/22/19 08:21 Vitamin B12 Tab* PO 1,000 mcg QAM TAVO Administration Digoxin 0.125 mg 07/22/19 09:00 07/22/19 08:20 Lanoxin Tab* PO 0.125 mg 0900 TAVO Administration Docusate Sodium 100 mg 07/13/19 17:24 Colace Cap* PO BID PRN CONSTIPATION Escitalopram Oxalate 15 mg 07/14/19 09:00 07/22/19 08:25 Lexapro * PO 15 mg DAILY TAVO Administration Ferrous Sulfate 325 mg 07/17/19 09:00 07/21/19 10:19 Ferrous Sulfate Tab* PO 325 mg EVERY OTHER DAY TAVO Administration Piperacillin Sod/Tazobactam 100 mls @ 25 mls/hr 07/18/19 20:00 07/22/19 11:57 Sod 3.375 gm/ Sodium Chloride IVPB 25 mls/hr Q8H TAVO Administration Lorazepam 0.5 mg 07/13/19 19:40 Ativan Inj* IV PUSH Q4H PRN ANXIETY Magnesium Hydroxide 30 ml 07/13/19 17:23 Milk Of Magnesia Liq* PO Q6H PRN CONSTIPATION Metoprolol Succinate 75 mg 07/16/19 10:00 07/22/19 08:19 Toprol Xl Tab* PO 75 mg BID TAVO Administration Miscellaneous 1 ea 07/13/19 19:40 Ativan Pyxis Ochoa N/A .ATIVAN IV OCHOA PRN PYXIS OCHOA Pharmacy Consult 1 note 07/18/19 15:00 Zosyn Per Pharmacy* FOLLOW UP .ZOSYN PER PHARMACY TAVO Rosuvastatin Calcium 5 mg 07/15/19 09:00 07/22/19 08:18 Crestor (Nf) PO 5 mg MoWeFr@0900 TAVO Administration Protocol Senna 1 tab 07/13/19 21:00 07/21/19 19:51 Senokot 8.6 Mg Tab* PO 1 tab BEDTIME TAVO Administration Vital Signs Temp Pulse Resp BP Pulse Ox 97.4 F 64 16 140/63 98 07/22/19 11:15 07/22/19 11:15 07/22/19 11:15 07/22/19 11:15 07/22/19 11:15 O/E: Pt in NAD HEENT: PERRLA Lungs: Diminished at bases CVS: s1, S2+ Abd: Soft, BS+ Ext: Normal ROM Skin: No rash Neuro: Pt not communicative Laboratory Results - last 24 hr 07/21/19 13:50 Fluid Cell Count Rvw By I/R: Pt is 89 y o f with h/o HTN, CVA, sick sinus syndrome, TIA, GERD, aflutter , afib, uterine polyp, affective disorder, depression, osteoarthritis, hyperlipidemai, DM type2 vertigo and h/o [place] being evaluated for pleural effusion Pt had thoracentesis on 07/21/19 with removal of 250cc of dark yellow fluid No evidence of malignancy Lymphocyte predominant effusion Suspect parapneumonic effusion NO PTX post procedure Await other results from pleural fluid
[2019-07-22] MEDS: Senna TAB 8.6 mg* TAB PO SCH (20:00)
[2019-07-23] MEDS: ZOSYN 3.375 GM Q8H per EXTENDED INFUSION IVPB SCH ×6 (03:34→20:02)
[2019-07-23 06:33] LABS: ABS Lymphocytes 1.3 10^3/ul (1.0-4.8); ABS Neutrophils 9.8 10^3/ul (1.5-7.7); Eosinophil % 0.3 %; Hematocrit 27 % (35-47); Hemoglobin 8.9 g/dL (12.0-16.0); Mean Corpuscular HGB Conc 33 g/dL (31-36); Mean Corpuscular Hemoglobin 28 pg (27-31); Mean Corpuscular Volume 87 fL (80-97); Mean Platelet Volume 7.6 fL (7.4-10.4); Nucleated Red Blood Cells % 0.1; Platelet Count 513 10^3/uL (150-450); Red Blood Count 3.17 10^6 /uL (3.70-4.87); Red Cell Distribution Width 14 % (10-15); White Blood Count 12.2 10^3/uL (3.5-10.8)
[2019-07-23 06:49] LABS: BUN/Creatinine Ratio 18.8 (8-20); C Reactive Protein 154.3 mg/L (<8.01); Calcium 8.3 mg/dL (8.6-10.3); EGFR African American 106.2 (>60); EGFR Non-African American 87.8 (>60); Potassium 3.2 mmol/L (3.5-5.0)
[2019-07-23] MEDS: Metoprolol Succinate XL TAB* 50 MG PO SCH ×2 (08:12→20:02)
[2019-07-23] MEDS: Acetaminophen TAB* 325 MG PO PRN (08:13)
[2019-07-23] MEDS: Cyanocobalamin TAB* 500 MCG PO SCH (08:13)
[2019-07-23] MEDS: Escitalopram * 10 MG TAB PO SCH (08:13)
[2019-07-23] MEDS: Digoxin TAB* 0.125 MG PO SCH (08:14)
[2019-07-23] MEDS: Ferrous Sulfate TAB* 325 MG PO SCH (08:17)
[2019-07-23] MEDS: Apixaban* 2.5 MG TAB PO SCH ×2 (08:19→20:02)
[2019-07-23] MEDS: Potassium Chlor TAB* 20 MEQ TAB.ER PO SCH ×3 (10:08→20:02)
[2019-07-23 10:44] LABS: Lactate Dehydrogenase, BF 62 U/L
[2019-07-23 13:25] LABS: Fluid Type, Protein, Total PLEURAL
[2019-07-23] MEDS: Senna TAB 8.6 mg* TAB PO SCH (20:02)
[2019-07-24] MEDS: ZOSYN 3.375 GM Q8H per EXTENDED INFUSION IVPB SCH ×6 (03:51→21:14)
[2019-07-24 04:46] LABS: ABS Eosinophils 0.1 10^3/ul (0-0.6); ABS Lymphocytes 1.6 10^3/ul (1.0-4.8); ABS Monocytes 1.1 10^3/ul (0-0.8); ABS Neutrophils 11.5 10^3/ul (1.5-7.7); Eosinophil % 0.5 %; Hematocrit 28 % (35-47); Lymphocyte % 11.1 %; Mean Corpuscular HGB Conc 32 g/dL (31-36); Mean Corpuscular Hemoglobin 28 pg (27-31); Mean Corpuscular Volume 87 fL (80-97); Mean Platelet Volume 7.6 fL (7.4-10.4); Platelet Count 557 10^3/uL (150-450); Red Blood Count 3.24 10^6 /uL (3.70-4.87); Red Cell Distribution Width 14 % (10-15); White Blood Count 14.3 10^3/uL (3.5-10.8)
[2019-07-24 05:04] LABS: BUN/Creatinine Ratio 13.6 (8-20); C Reactive Protein 178.2 mg/L (<8.01); Calcium 8.3 mg/dL (8.6-10.3); EGFR African American 116.7 (>60); EGFR Non-African American 96.4 (>60); Potassium 3.7 mmol/L (3.5-5.0)
[2019-07-24] MEDS: Digoxin TAB* 0.125 MG PO SCH (08:29)
[2019-07-24] MEDS: Potassium Chlor TAB* 20 MEQ TAB.ER PO SCH ×3 (08:29→21:17)
[2019-07-24] MEDS: Metoprolol Succinate XL TAB* 50 MG PO SCH ×2 (08:30→21:17)
[2019-07-24] MEDS: CMC:Rosuvastatin (NF) 5 MG TAB PO SCH (08:31)
[2019-07-24] MEDS: Escitalopram * 10 MG TAB PO SCH (08:31)
[2019-07-24] MEDS: Cyanocobalamin TAB* 500 MCG PO SCH (08:32)
[2019-07-24] MEDS: Apixaban* 2.5 MG TAB PO SCH ×2 (08:32→21:17)
[2019-07-24 13:54] LABS: Fluid Type, Glucose PLEURAL
[2019-07-24] MEDS ORDERED: Iodixanol* (CONTRAST) 320 MG/ML 100 ML SDV IV ONE (15:00)
[2019-07-24] MEDS: Senna TAB 8.6 mg* TAB PO SCH (21:17)
[2019-07-25] MEDS: Acetaminophen TAB* 325 MG PO PRN ×3 (03:01→20:06)
[2019-07-25] MEDS: ZOSYN 3.375 GM Q8H per EXTENDED INFUSION IVPB SCH ×6 (04:07→22:37)
[2019-07-25] MEDS: Digoxin TAB* 0.125 MG PO SCH (08:37)
[2019-07-25] MEDS: Ferrous Sulfate TAB* 325 MG PO SCH (08:37)
[2019-07-25] MEDS: Apixaban* 2.5 MG TAB PO SCH ×2 (08:37→20:07)
[2019-07-25] MEDS: Metoprolol Succinate XL TAB* 50 MG PO SCH ×2 (08:37→20:11)
[2019-07-25] MEDS: Escitalopram * 10 MG TAB PO SCH (08:37)
[2019-07-25] MEDS: Cyanocobalamin TAB* 500 MCG PO SCH (08:37)
[2019-07-25] MEDS: Potassium Chlor TAB* 20 MEQ TAB.ER PO SCH ×3 (08:38→20:07)
--- NOTE | 2019-07-25 12:27 | CONS ---
CONSULTATION REPORT: DATE OF CONSULT: 07/25/19 REQUESTING PHYSICIAN: Tessa Finnegan. CONSULTING SERVICE: Infectious Disease. REASON FOR CONSULTATION: Leukocytosis. IMPRESSION: 1. Leukocytosis, about 14,000, which is comparable to the white count at the time of her admission, neutrophilic predominant. While here she has been treated for an Escherichia coli and Proteus cystitis, pneumonia, right-sided pleural effusion, which was consistent with a parapneumonic effusion, she has a necrotic pelvic mass (recent biopsy showed necrotic debris) felt to be uterine cancer. That could be secondarily infected or itself could be producing an inflammatory response. She is afebrile, has no obvious wounds or other focal sources of abnormality. A CT of the chest and abdomen pelvis did not reveal occult abscess. 2. Sick sinus syndrome status post pacemaker placement left chest, the pocket is benign, blood cultures are negative. 3. Atrial fibrillation, rapid ventricular response at the time of admission. 4. Type 2 diabetes. RECOMMENDATION: For now continue the Zosyn, which should cover pelvic tumor associated infection if there is one, if that is the main abnormality causing her leukocytosis, antibiotics alone may be insufficient to cure the infection and it may be that surgical therapy is needed as well. HISTORY OF PRESENT ILLNESS: This is an 89-year-old woman with known pelvic mass , biopsied in [place], found to be necrotic debris with a plan for followup hysterectomy or D and C still considered. She was admitted to the hospital by her family who found she was unable to care for herself, and that condition had been progressing over a number of weeks. She had a CT of the abdomen and pelvis during the time of admission that showed distended uterus central hypoattenuation concerning for fluid in the endometrial cavity, endometrial thickening on prior ultrasound, hiatal hernia, right greater than left pleural effusions, cardiomegaly, dysmorphic spleen. She was started on ceftriaxone when the urine culture grew proteus and E. coli. She had noted some burning with urination initially. She had a thoracentesis on 07/21/19 right-sided pleural effusion, the cytology showed inflammation. Culture was negative. Her blood cultures initially were negative. She has not had a fever here. She cannot provide history of the illness because of her mental status, which was obtained instead from review of the medical record and discussion with Dr. Finnegan. A followup CT of chest and abdomen pelvis done yesterday was essentially unchanged except for some recurrence of the pleural fluid. PAST MEDICAL HISTORY: 1. Pelvic mass. 2. Sick sinus syndrome, status post left chest pacemaker placement. 3. History of stroke and TIA. 4. Hypertension. 5. Gastroesophageal reflux disease. 6. Peripheral vascular disease. 7. Atrial flutter and fibrillation. 8. Depression. 9. Osteoarthritis. 10. Hyperlipidemia. 11. Type 2 diabetes mellitus. 12. Vertigo 13. History of [place]. 14. Status post breast lumpectomy. MEDICATIONS: 1. Tylenol. 2. Apixaban. 3. Cyanocobalamin. 4. Digoxin. 5. Docusate. 6. Lexapro. 7. Ferrous sulfate. 8. Magnesium hydroxide. 9. Metoprolol. 10. Zosyn 3.375 g every 8 hours. 11. Rosuvastatin. 12. Senna. ALLERGIES: ASPIRIN and LIPITOR. FAMILY HISTORY: It is not obtainable. SOCIAL HISTORY: She has been living by herself being cared for by her nephew and a neighbor, apparently non-smoker. REVIEW OF SYSTEMS: Unobtainable given her mental status. PHYSICAL EXAM: Vital Signs: Temperature 36, heart rate 60, respiratory rate 20 , blood pressure 146/85, oxygen saturation 92% on room air. In General: She is not diaphoretic or in distress. Neurologic: She is asleep, but eventually opens her eyes to voice, does not regard or answer questions or follow commands. Appears to move all of her extremities. HEENT: There is no conjunctival hemorrhage, oropharynx or lesions. Neck is supple without mass. Heart is regular rate and rhythm without murmurs rubs or gallops. There is a left chest pacemaker. The pocket is not erythematous or tender. Lungs with decreased breath sounds at the right base without wheeze, or rale. Abdomen: Soft, nontender, nondistended. There is suprapubic fullness with induration and what feels like a mass. Skin: There is no rash or splinter hemorrhage. Musculoskeletal: There is no spine tenderness to palpation or joint synovitis. There is no skin wounds. DIAGNOSTIC STUDIES/LAB DATA: White blood cell count 14, hemoglobin 9, platelets 557. Creatinine 0.5. CRP 178, was 154 on 07/23/19, 132 on 12/08/19, 155 on 07/20/19, 167 at admission and it is peak of 223 on 07/17/19. Please see impressions recommendations outlined above. Thank you for asking me to see Roslyn Michelle in consultation. [id number]/[facility] #: [id number] KARIN
--- NOTE | 2019-07-25 18:06 | PN ---
Progress Note - Progress Note Date of Service: 07/25/19 - Pulm f/u note Note: Pt seen and examined at bedside. Pt sitting up in chair. More alert than before Active Medications Generic Name Dose Route Start Last Admin Trade Name Freq PRN Reason Stop Dose Admin Acetaminophen 650 mg 07/13/19 17:04 07/25/19 08:38 Tylenol Tab* PO 650 mg Q4H PRN Administration MILD PAIN or TEMP > 100.4 Apixaban 2.5 mg 07/22/19 11:00 07/25/19 08:37 Eliquis* PO 2.5 mg BID TAVO Administration Cyanocobalamin 1,000 mcg 07/14/19 09:00 07/25/19 08:37 Vitamin B12 Tab* PO 1,000 mcg QAM TAVO Administration Digoxin 0.125 mg 07/22/19 09:00 07/25/19 08:37 Lanoxin Tab* PO 0.125 mg 0900 TAVO Administration Docusate Sodium 100 mg 07/13/19 17:24 Colace Cap* PO BID PRN CONSTIPATION Escitalopram Oxalate 15 mg 07/14/19 09:00 07/25/19 08:37 Lexapro * PO 15 mg DAILY TAVO Administration Ferrous Sulfate 325 mg 07/17/19 09:00 07/25/19 08:37 Ferrous Sulfate Tab* PO 325 mg EVERY OTHER DAY TAVO Administration Piperacillin Sod/Tazobactam 100 mls @ 25 mls/hr 07/18/19 20:00 07/25/19 11:11 Sod 3.375 gm/ Sodium Chloride IVPB 25 mls/hr Q8H TAVO Administration Lorazepam 0.5 mg 07/13/19 19:40 Ativan Inj* IV PUSH Q4H PRN ANXIETY Magnesium Hydroxide 30 ml 07/13/19 17:23 Milk Of Magnesia Liq* PO Q6H PRN CONSTIPATION Metoprolol Succinate 75 mg 07/16/19 10:00 07/25/19 08:37 Toprol Xl Tab* PO 75 mg BID TAVO Administration Miscellaneous 1 ea 07/13/19 19:40 Ativan Pyxis Ochoa N/A .ATIVAN IV OCHOA PRN PYXIS OCHOA Pharmacy Consult 1 note 07/18/19 15:00 Zosyn Per Pharmacy* FOLLOW UP .ZOSYN PER PHARMACY TAVO Potassium Chloride 20 meq 07/23/19 09:00 07/25/19 13:28 Klor Con Er Tab* PO 20 meq TID TAVO Administration Rosuvastatin Calcium 5 mg 07/15/19 09:00 07/24/19 08:31 Crestor (Nf) PO 5 mg MoWeFr@0900 TAVO Administration Protocol Senna 1 tab 07/13/19 21:00 07/24/19 21:17 Senokot 8.6 Mg Tab* PO 1 tab BEDTIME TAVO Administration Vital Signs Temp Pulse Resp BP Pulse Ox 97.0 F 63 20 143/61 95 07/25/19 15:15 07/25/19 15:15 07/25/19 15:15 07/25/19 15:15 07/25/19 15:15 O/E: Pt in NAD, sitting up in chair HEENT: PERRLA Lungs: Diminished at bases R>L CVS: s1, S2+ Abd: Soft, BS+ Ext: Normal ROM Skin: No rash Neuro: Uable ot perform full neuro exam Labs: No new labs I/R: Pt is 89 y o f with h/o HTN, CVA, sick sinus syndrome, TIA, GERD, aflutter , afib, uterine polyp, affective disorder, depression, osteoarthritis, hyperlipidemai, DM type2 vertigo and h/o [place] being evaluated for pleural effusion Pt had thoracentesis on 07/21/19 with removal of 250cc of dark yellow fluid No evidence of malignancy Lymphocyte predominant effusion however wit htransudative features Cx are negative Do not suspect parapneumonic effusion given normal protein, normal LDH CT chest was reviewed- mod rt effusion and small lt effusion Suspect likely fluid overload as cause for b/l transudative effusion D/w Dr Finnegan She will be checking BNP, ECHO to evaluate for CHF She is on RA with no distress or hypoxia Do not see any need to rpt thoracentesis Pt has mostly been bed ridden, has not been able to take deep breaths resulting in atlectasis She has also been receiving fluids No pulm intervention for now
[2019-07-25] MEDS: Senna TAB 8.6 mg* TAB PO SCH (20:07)
[2019-07-26] MEDS: ZOSYN 3.375 GM Q8H per EXTENDED INFUSION IVPB SCH ×6 (05:52→20:30)
[2019-07-26] MEDS ORDERED: fentaNYL* 50 MCG/ML 2 ML VIAL (100 MCG VIAL) IV SLOW PU ONE (06:16)
[2019-07-26 08:17] LABS: Calcium 8.8 mg/dL (8.6-10.3)
[2019-07-26 08:23] LABS: BUN/Creatinine Ratio 15.3 (8-20); C Reactive Protein 169.42 mg/L (<8.01); EGFR African American 116.7 (>60); EGFR Non-African American 96.4 (>60)
[2019-07-26 08:46] LABS: ABS Basophils 0.1 10^3/ul (0-0.2); ABS Eosinophils 0.3 10^3/ul (0-0.6); ABS Lymphocytes 1.1 10^3/ul (1.0-4.8); ABS Monocytes 0.7 10^3/ul (0-0.8); ABS Neutrophils 10.9 10^3/ul (1.5-7.7); Eosinophil % 2.1 %; Hematocrit 29 % (35-47); Hemoglobin 9.3 g/dL (12.0-16.0); Lymphocyte % 8.5 %; Mean Corpuscular HGB Conc 33 g/dL (31-36); Mean Corpuscular Hemoglobin 28 pg (27-31); Mean Corpuscular Volume 86 fL (80-97); Mean Platelet Volume 7.3 fL (7.4-10.4); Platelet Count 626 10^3/uL (150-450); Red Blood Count 3.32 10^6 /uL (3.70-4.87); Red Cell Distribution Width 14 % (10-15)
[2019-07-26] MEDS: Metoprolol Succinate XL TAB* 50 MG PO SCH ×2 (09:36→21:05)
[2019-07-26] MEDS: Potassium Chlor TAB* 20 MEQ TAB.ER PO SCH ×3 (09:37→21:04)
[2019-07-26] MEDS: Cyanocobalamin TAB* 500 MCG PO SCH (09:38)
[2019-07-26] MEDS: Digoxin TAB* 0.125 MG PO SCH (09:38)
[2019-07-26] MEDS: Apixaban* 2.5 MG TAB PO SCH ×2 (09:38→21:04)
[2019-07-26] MEDS: Escitalopram * 10 MG TAB PO SCH (09:39)
[2019-07-26] MEDS: CMC:Rosuvastatin (NF) 5 MG TAB PO SCH (09:39)
--- NOTE | 2019-07-26 12:53 | ECHO ---
*[facility]* [place] [address] Fax #: [phone] Transthoracic Echocardiogram Patient: Mariza Martinez : 1930 Study Date: 07/26/2019 Age: 89 Gender: F HR: 54 bpm Height: 65 in /165.1 cm BSA: 1.48 m^2 Weight: 100.8 lb /45.8 kg BMI: 16.8 kg/m^2 *[employer]: * Cecilia Verdin [facility] *Referring Physician: * Kofi Finnegan *Reading Physician: * Jerry Anaya MD Indications: Congestive Heart Failure. History: Atrial fibrillation. Prior myocardial infarction. Cerebrovascular accident. Patent foramen ovale. Risk factors: Hypertension. Diabetes mellitus. Dyslipidemia. Labs, prior tests, procedures, and surgery: S/P Thoracentsis during current admission. Permanent pacemaker system implantation. Conclusions Summary: - Left ventricle: Systolic function is normal. The estimated ejection fraction is 50-55%. - Right ventricle: Pacer wire noted in the right ventricle. - Ventricular septum: There is abnormal interventricular septal wall motion consistent with an RV pacemaker. - Left atrium: The atrium is severely dilated. - Right atrium: The atrium is moderately dilated. Pacer wire noted in right atrium. - Atrial septum: A PFO is demonstrated by color Doppler. - Mitral valve: There is moderate regurgitation. The regurgitant PISA radius is 0.6 cm. The maximal regurgitant velocity is 5.97 m/sec. The effective regurgitant orifice (PISA) is 0.12 cm^2. - Aortic valve: The findings are consistent with mild to moderate stenosis. There is mild regurgitation. The peak systolic velocity is 2.47 m/sec. The systolic velocity-time integral is 47.1 cm. The mean systolic gradient is 11.0 mm Hg. The LVOT to aortic valve VTI ratio is 0.32. The valve area by the peak velocity method is 1.02 cm^2. - Tricuspid valve: There is moderate-severe regurgitation. - Pulmonic valve: There is trace to mild regurgitation. - Pericardium, extracardiac: There is no significant pericardial effusion. - Pulmonary arteries: Systolic pressure is moderately increased. - C/t 08/24/2016, left ventricle ejection fraction stable. was mild then. Mitral regurgitation is stable. Tricuspid regurgitation is more now. PHTN is more now from borderline mild then. Study data: Transthoracic echocardiogram. Procedure: Transthoracic echocardiography was performed. Image quality was good. Complete 2D, spectral Doppler, and color flow Doppler. Location: Bedside. Patient status: Inpatient. Patient room number: 435. Rhythm: Atrial fibrillation. With intermittent pacing. Findings Left ventricle: The cavity size is normal. Wall thickness is at the upper limits of normal. Systolic function is normal. The estimated ejection fraction is 50-55%. Regional wall motion abnormalities: Hypokinesis of the apicalanterior, inferolateral, and inferior myocardium. Left ventricular diastolic function parameters are indeterminate. Right ventricle: The cavity size is at the upper limits of normal. Pacer wire noted in the right ventricle. Systolic function is low normal. Systolic pressure is severely increased. Ventricular septum: There is septal flattening of the interventricular septum consistent with RV volume or pressure overload. There is abnormal interventricular septal wall motion consistent with an RV pacemaker. Left atrium: The atrium is severely dilated. Right atrium: The atrium is moderately dilated. Pacer wire noted in right atrium. Atrial septum: A PFO is demonstrated by color Doppler. Mitral valve: The Mitral valve annulus appears calcified. The leaflets are mildly thickened. There is no evidence of stenosis. There is moderate regurgitation. Aortic valve: The valve is trileaflet. The leaflets are mildly calcified. Valve mobility is restricted. The findings are consistent with mild to moderate stenosis. There is mild regurgitation. Tricuspid valve: The leaflets are normal thickness. There is no evidence of stenosis. There is moderate-severe regurgitation. Pulmonic valve: The leaflets are normal thickness. There is no evidence of stenosis. There is trace to mild regurgitation. Aorta: Aortic root: The aortic root is appears normal. Ascending aorta: The ascending aorta is appears normal. Aortic arch: The aortic arch is poorly visualized. Pericardium: There is no significant pericardial effusion. There is a right pleural effusion and a left pleural effusion. Pulmonary arteries: The main pulmonary artery is normal-sized. Systolic pressure is moderately increased. Systemic veins: Inferior vena cava: The vessel is dilated. There is (< 50%) respiratory change in the IVC dimension. Measurements Left ventricle Value Ref Aortic valve continued Value Ref MARLENE, LAX 4.3 cm 3.8 - 5.2 Mean grad, S 11.0 mm Hg ----- ESD, LAX 3.4 cm 2.2 - 3.5 Peak grad, S 24.0 mm Hg ----- FS, LAX (L) 21 % 27 - 45 LVOT/AV, VTI ratio 0.32 ----- PW, ED, LAX (H) 1.0 cm 0.6 - 0.9 KASHMIR, VTI 1.00 cm^2 ----- FS (L) 21 % 27 - 45 KASHMIR, Vmax 1.02 cm^2 ----- PW, ED (H) 1.0 cm 0.6 - 0.9 E', lat kofi, TDI (L) 9.0 cm/sec >=10.0 Mitral valve Value Ref E/e', lat kofi, 10 Peak E 0.87 m/sec - ---- TDI Peak A 0 m/sec ----- E', med kofi, TDI (L) 4.7 cm/sec >=7.0 Decel time 239 ms ----- E/e', med kofi, 19 Peak grad, D 3.0 mm Hg - ---- TDI MVA, PISA 0.6 cm^2 ----- E', avg, TDI 6.9 cm/sec MVA/bsa, PISA 0.39 cm^2/m^2 - ---- E/e', avg, TDI 13 <=14 MR alias velocity 0.32 m/sec ----- MR PISA radius 0.6 cm ----- LVOT Value Ref Max MR v 5.97 m/sec ----- Diam, S 2.00 cm Regurg VTI 163.0 cm ----- Area 3.1 cm^2 ERO, PISA 0.12 cm^2 ----- Peak kathy, S 0.8 m/sec MR vol, PISA 21 ml ----- VTI, S 15.0 cm MR fraction, PISA 31 % ----- Mean grad, S 1 mm Hg SV 46 ml Pulmonic valve Value Ref SV/bsa 31 ml/m^2 Peak v, S 1.05 m/sec ----- Peak grad, S 4.0 mm Hg ----- Ventricular septum Value Ref NJ v, ED 1.41 m/sec ----- IVS, ED (H) 1.0 cm 0.6 - 0.9 NJ grad, ED 8 mm Hg ----- Right ventricle Value Ref Tricuspid valve Value Ref MARLENE, LAX 3.6 cm TR peak v (H) 3.4 m/sec <=2 .8 MARLENE minor ax, A4C 3.5 cm 1.9 - 3.5 Peak RV-RA grad, S 46 mm Hg ----- mid Pressure, S 61 mm Hg Aortic root Value Ref Root diam 2.9 cm <3. 8 Left atrium Value Ref AP dim, ES (H) 4.70 cm 2.70 - Ascending aorta Value Ref 3.80 AAo AP diam, S 3.3 cm ----- ML dim, A4C 4.6 cm SI dim, A4C 5.8 cm Decending aorta Value Ref Vol/bsa, ES, 1-p (H) 48 ml/m^2 11 - 40 Logan peak kathy 0.4 m/sec ----- A4C Vol/bsa, ES, A/L (H) 63 ml/m^2 16 - 34 Pulmonary artery Value Ref Pressure, S 57.0 mm Hg ----- Right atrium Value Ref SI dim, ES (H) 5.9 cm 3.4 - 5.3 Inferior vena cava Value Ref ML dim, ES, A4C (H) 4.7 cm 2.6 - 4.4 Diam 2.3 cm ----- Estimated RAP 15 mm Hg Aortic valve Value Ref Kofi diam, ED 1.8 cm Peak v, S 2.47 m/sec VTI, S 47.1 cm Legend: (L) and (H) geetha values outside specified reference range. Prepared and electronically signed by Jerry Anaya MD 07/26/2019 12:52
[2019-07-26] MEDS: Acetaminophen TAB* 325 MG PO PRN ×2 (15:12→21:04)
[2019-07-26] MEDS: Senna TAB 8.6 mg* TAB PO SCH (21:04)
[2019-07-27] MEDS: ZOSYN 3.375 GM Q8H per EXTENDED INFUSION IVPB SCH ×6 (04:38→19:58)
[2019-07-27] MEDS: Acetaminophen TAB* 325 MG PO PRN ×4 (04:46→20:10)
[2019-07-27] MEDS: Escitalopram * 10 MG TAB PO SCH (09:04)
[2019-07-27] MEDS: Potassium Chlor TAB* 20 MEQ TAB.ER PO SCH ×2 (09:04→20:00)
[2019-07-27] MEDS: Cyanocobalamin TAB* 500 MCG PO SCH (09:04)
[2019-07-27] MEDS: Ferrous Sulfate TAB* 325 MG PO SCH (09:09)
[2019-07-27] MEDS: Apixaban* 2.5 MG TAB PO SCH ×2 (09:09→20:00)
[2019-07-27] MEDS: Metoprolol Succinate XL TAB* 50 MG PO SCH ×2 (09:11→20:00)
[2019-07-27] MEDS: Digoxin TAB* 0.125 MG PO SCH (09:11)
--- NOTE | 2019-07-27 10:10 | PN ---
Subjective - Subjective Reason for Note: Progress Note History: Mariza Martinez is unable to give a history of herself. I have spoken to Dr. Mireya Finnegan and I have also reviewed the electronic hospital records. She is awake and alert, but not oriented to place or time. She denies dyspnea and cough. She states she has some lower abdominal pain. Active Problems: Active Problems Altered mental state (Acute) R41.82 Aortic stenosis (Acute) I35.0 Atrial fibrillation with RVR (Acute) I48.91 - Secondary to non compliance and mild dehydration. - Continue Metoprolol and Apixaban. CRP elevated (Acute) R79.82 Congestive heart failure, acute (Acute) I50.9 Leukocytosis (Acute) D72.829 Pleural effusion (Acute) J90 Pneumonia (Acute) J18.9 Urinary tract infection (Acute) - Abnormal UA - follow urine culture. - Start Ceftriaxone. Uterine mass (Acute) N85.8 Anemia (Chronic) D64.9 - Likely iron deficiency in the setting of uterine bleeding, but could also be anemia of chronic disease. - Check anemia w/u. DVT prophylaxis (Chronic) Z29.9 - Apixaban. Depression (Chronic) F32.9 - Patient does appear to have cognitive decline - dementia vs pseudodementia. - Will resume SSRI, check B12. TSH is normal. Essential hypertension (Chronic) I10 Failure to thrive (Chronic) [id number] - As per records, patient weighed 138lbs in 2017, now down to 101lbs. - Check prealbumin. - Also concerned for malignancy - check CT abd/pelvis. Full code status (Chronic) Z78.9 History of CVA (cerebrovascular accident) (Chronic) Z86.73 Physical deconditioning (Chronic) R53.81 - PT/OT evaluation. - Will likely need SNF. Severe protein-calorie malnutrition (Chronic) E43 - Chronic severe protein calorie malnutrition as evidenced by temporal muscle wasting, inadequate oral intake, weight loss, underweight - BMI 16.8. - Dietitian input appreciated - continue nutritional supplementals. Type 2 diabetes mellitus (Chronic) Current Medications: Current Medications Acetaminophen (Tylenol Tab*) 650 mg PO Q4H PRN PRN Reason: MILD PAIN or TEMP > 100.4 Last Admin: 07/27/19 09:05 Dose: 650 mg Apixaban (Eliquis*) 2.5 mg PO BID [facility] Last Admin: 07/27/19 09:09 Dose: 2.5 mg Cyanocobalamin (Vitamin B12 Tab*) 1,000 mcg PO QAM [facility] Last Admin: 07/27/19 09:04 Dose: 1,000 mcg Digoxin (Lanoxin Tab*) 0.125 mg PO 0900 [facility] Last Admin: 07/27/19 09:11 Dose: 0.125 mg Docusate Sodium (Colace Cap*) 100 mg PO BID PRN PRN Reason: CONSTIPATION Escitalopram Oxalate (Lexapro *) 15 mg PO DAILY [facility] Last Admin: 07/27/19 09:04 Dose: 15 mg Ferrous Sulfate (Ferrous Sulfate Tab*) 325 mg PO EVERY OTHER DAY [facility] Last Admin: 07/27/19 09:09 Dose: 325 mg Piperacillin Sod/Tazobactam (Sod 3.375 gm/ Sodium Chloride) 100 mls @ 25 mls/ hr IVPB Q8H [facility] Last Admin: 07/27/19 04:38 Dose: 25 mls/hr Lorazepam (Ativan Inj*) 0.5 mg IV PUSH Q4H PRN PRN Reason: ANXIETY Magnesium Hydroxide (Milk Of Magnbatool Liq*) 30 ml PO Q6H PRN PRN Reason: CONSTIPATION Metoprolol Succinate (Toprol Xl Tab*) 75 mg PO BID [facility] Last Admin: 07/27/19 09:11 Dose: 75 mg Miscellaneous (Ativan Pyxis [place]) 1 ea N/A .ATIVAN IV OBREGON PRN PRN Reason: PYXIS OBREGON Pharmacy Consult (Zosyn Per Pharmacy*) 1 note FOLLOW UP .ZOSYN PER PHARMACY [facility] Potassium Chloride (Klor Con Er Tab*) 20 meq PO BID [facility] Last Admin: 07/27/19 09:04 Dose: 20 meq Rosuvastatin Calcium (Crestor (Nf)) 5 mg PO MoWeFr@0900 [facility]; Protocol Last Admin: 07/26/19 09:39 Dose: 5 mg Senna (Senokot 8.6 Mg Tab*) 1 tab PO BEDTIME [facility] Last Admin: 07/26/19 21:04 Dose: 1 tab Home Medications: Home Medications Medication Instructions Recorded Confirmed Type Warfarin TAB(*) [Coumadin TAB(*)] 5 mg PO SEE INSTRUCTIONS 09/23/13 10/18/16 History Digoxin [Digitek] 125 mcg PO DAILY 08/23/16 10/18/16 History Escitalopram Oxalate [Lexapro 10 10 mg PO DAILY 08/23/16 10/18/16 History mg] Acetaminophen [Acetaminophen Extra 500 mg PO BID PRN 10/17/16 10/17/16 History Stren] Cholecalciferol TAB* [Vitamin D 2,000 units PO DAILY 10/17/16 10/18/16 History TAB*] Clopidogrel TAB* [Plavix TAB*] 75 mg PO DAILY 10/17/16 10/18/16 History Cyanocobalamin (Vitamin B-12) 1,000 mcg SL QAM 10/17/16 10/18/16 History [Vitamin B-12] Glucosamine Sulfate 1,000 mg PO BID 10/17/16 10/18/16 History Hydrochlorothiazide TAB* 25 mg PO DAILY 10/17/16 10/18/16 History [Hydrodiuril TAB*] Rosuvastatin Calcium [Crestor] 5 mg PO SEE INSTRUCTIONS 10/17/16 10/18/16 History Ubidecarenone [Coenzyme Q10] 200 mg PO DAILY 10/17/16 10/18/16 History raNITIdine HCl [Zantac] 75 mg PO DAILY PRN 10/17/16 10/18/16 History Ascorbic Acid [Vitamin C/Aleisha Hips 1,000 mg PO DAILY 10/18/16 10/18/16 History Tr] Turmeric (Curcuma Longa) [Turmeric] 500 mg PO DAILY 10/18/16 10/18/16 History Acetaminophen TAB* [Tylenol TAB*] 650 mg PO Q4H PRN #0 tab 10/19/16 Rx Al Hydrox/Mg Hydrox/Simet LIQ* 30 ml PO Q6H PRN #0 udc 10/19/16 Rx [Maalox Plus*] Cephalexin CAP* [Keflex CAP*] 500 mg PO TID #10 cap 10/19/16 Rx Metoprolol Succinate XL TAB* 50 mg PO BEDTIME #90 tab.xl 10/19/16 Rx [Toprol XL TAB*] Allergies: Allergies Allergy/AdvReac Type Severity Reaction Status Date / Time aspirin Allergy GI Upset Verified 06/26/18 14:12 atorvastatin [From Lipitor] Allergy Muscle Ache Verified 06/26/18 14:12 Objective - Vital Signs Vital Signs: Vital Signs 07/26/19 07/26/19 07/26/19 10:09 11:57 15:24 Temperature 97.5 F 99.7 F Pulse Rate 62 96 Respiratory 18 20 20 Rate Blood Pressure 154/67 160/72 (mmHg) O2 Sat by Pulse 94 98 93 Oximetry 07/26/19 07/26/19 07/26/19 16:00 19:15 20:00 Temperature 97.7 F Pulse Rate 72 Respiratory 16 16 Rate Blood Pressure 158/93 (mmHg) O2 Sat by Pulse 97 93 Oximetry 07/26/19 07/27/19 07/27/19 23:15 00:00 03:15 Temperature 97.7 F 97.7 F Pulse Rate 66 62 Respiratory 16 18 Rate Blood Pressure 148/46 155/69 (mmHg) O2 Sat by Pulse 90 93 95 Oximetry 07/27/19 07/27/19 07/27/19 07:56 08:00 09:11 Temperature 97.9 F Pulse Rate 58 70 Respiratory 18 Rate Blood Pressure 152/90 (mmHg) O2 Sat by Pulse 92 94 Oximetry 07/27/19 09:31 Temperature Pulse Rate Respiratory 16 Rate Blood Pressure (mmHg) O2 Sat by Pulse Oximetry - Intake and Output Intake and Output: Intake & Output 07/24/19 07/25/19 07/26/19 07/27/19 11:59 11:59 11:59 11:59 Intake Total 3939 288 2860 510 Output Total 200 0 Balance 1105 871 835 510 Weight 101 lb Intake: IV Fluids 151 166 20 Zosyn 151 166 20 IVPB 265 240 469 130 NS (0.9%) 10 Zosyn 265 240 469 120 Oral 840 480 400 360 Output: Urine 200 0 Other: Estimated Void Medium Medium # Bowel Movements 1 1 1 Estimated Stool Amount Small Medium Medium Small # Voids 1 2 ADLs: Meal Record Start: 07/13/19 18: 13 Freq: DAILY@0900,1400,1800 Status: Active Protocol: Created 07/13/19 18:13 System (Rec: 07/13/19 18:13 System TELE-C15) Document 07/14/19 09:00 ATW2041 (Rec: 07/14/19 11:10 PIW7127 TELE-C11) Document 07/14/19 14:00 WTN8580 (Rec: 07/14/19 14:25 UPC4788 TELE-C11) Document 07/14/19 18:00 VMU4433 (Rec: 07/14/19 18:01 DVR7539 TELE-C01) Document 07/15/19 09:00 NPG3213 (Rec: 07/15/19 09:11 BMP8010 TELE-C09) Document 07/15/19 13:17 HRN7825 (Rec: 07/15/19 13:17 BSL5101 TELE-C09) Document 07/15/19 18:00 NMD1317 (Rec: 07/15/19 18:27 OBT9930 TELE-C06) Document 07/16/19 08:45 ILU9323 (Rec: 07/16/19 08:45 NVJ3539 TELE-C09) Document 07/16/19 13:54 AZD1466 (Rec: 07/16/19 13:54 KLF2807 TELE-C11) Document 07/16/19 17:42 YWL3183 (Rec: 07/16/19 17:43 UOJ9807 TELE-C11) Document 07/17/19 09:00 OMU4176 (Rec: 07/17/19 09:34 ZZN9552 TELE-C11) Document 07/17/19 13:33 XZH1735 (Rec: 07/17/19 13:33 MMW9552 TELE-C01) Document 07/17/19 17:54 ECG2201 (Rec: 07/17/19 17:54 ISV9872 TELE-C09) Document 07/18/19 09:00 WQS0765 (Rec: 07/18/19 09:10 UXE1166 TELE-C11) Document 07/18/19 13:52 YWS1690 (Rec: 07/18/19 13:53 PVB4897 TELE-C11) Document 07/18/19 18:00 KDW6336 (Rec: 07/18/19 19:07 BMJ6436 TELE-C10) Document 07/19/19 09:00 TFT4240 (Rec: 07/19/19 10:22 QSC2504 TELE-C10) Document 07/19/19 14:00 IPP6212 (Rec: 07/19/19 14:29 UJP6166 TELE-C10) Document 07/19/19 18:00 LOL3541 (Rec: 07/19/19 19:47 KTU1191 TELE-M18) Document 07/20/19 09:00 IDF2649 (Rec: 07/20/19 09:12 KLD0227 TELE-C01) Document 07/20/19 14:00 VBW1125 (Rec: 07/20/19 16:08 LRK6722 TELE-C01) Document 07/20/19 18:00 YLB2425 (Rec: 07/20/19 18:38 HPK5369 TELE-C01) Document 07/21/19 09:00 EAZ1849 (Rec: 07/21/19 09:50 EWV8863 TELE-C01) Document 07/21/19 14:00 GYO4341 (Rec: 07/21/19 14:34 XQL3841 TELE-C01) Document 07/21/19 18:00 VKT0930 (Rec: 07/21/19 21:46 VVM3353 TELE-C06) Document 07/22/19 09:00 XYP1333 (Rec: 07/22/19 10:26 AFA2105 TELE-C09) Document 07/22/19 14:00 IOZ8219 (Rec: 07/22/19 14:05 GYL7828 TELE-C09) Document 07/22/19 18:00 BYL9533 (Rec: 07/22/19 20:10 IXK0851 TELE-C07) Document 07/23/19 09:00 ZMP9000 (Rec: 07/23/19 11:09 FFO7217 TELE-C07) Document 07/23/19 13:40 LAV5274 (Rec: 07/23/19 13:40 FJE7507 TELE-C07) Document 07/23/19 18:00 DMO2824 (Rec: 07/23/19 20:37 SOH0644 TELE-C03) Document 07/24/19 09:00 NAJ2604 (Rec: 07/24/19 10:45 KKL6611 TELE-C07) Document 07/24/19 14:00 WRN5919 (Rec: 07/24/19 14:26 BZJ6392 TELE-C01) Document 07/24/19 17:28 GBW7164 (Rec: 07/24/19 17:28 ZDT3709 TELE-C03) Document 07/25/19 09:00 JUM7698 (Rec: 07/25/19 16:06 EPA9703 TELE-C03) Document 07/25/19 14:00 CBE5012 (Rec: 07/25/19 18:24 ZZD9474 TELE-C01) Document 07/25/19 18:00 WEP9383 (Rec: 07/25/19 18:26 UNS9673 TELE-C01) Document 07/26/19 09:00 OZU6058 (Rec: 07/26/19 10:57 CXN6610 TELE-C11) Document 07/26/19 14:00 EUX9610 (Rec: 07/26/19 18:10 VGB4001 TELE-C01) Document 07/26/19 18:00 FGR0179 (Rec: 07/26/19 18:11 NTT1056 TELE-C01) Intake and Output Start: 07/13/19 18: 13 Freq: DAILY@0600,1400,2200 Status: Active Protocol: Created 07/13/19 18:13 System (Rec: 07/13/19 18:13 System TELE-C15) Document 07/14/19 14:05 QCA1537 (Rec: 07/14/19 14:06 KCG2081 TELE-M06) Document 07/14/19 21:43 MCN6635 (Rec: 07/14/19 21:45 YTP1793 TELE-C07) Document 07/15/19 05:58 MLJ8247 (Rec: 07/15/19 06:01 GRE1973 TELE-C07) Document 07/15/19 13:32 LJD3362 (Rec: 07/15/19 13:32 BNU2406 TELE-C09) Document 07/15/19 21:28 JCO3268 (Rec: 07/15/19 21:29 RHX6260 TELE-C05) Document 07/16/19 06:00 MUY9168 (Rec: 07/16/19 06:20 PNE6909 TELE-C09) Document 07/16/19 13:55 BKB5741 (Rec: 07/16/19 13:55 AIW4323 TELE-C11) Document 07/16/19 22:00 EBF9236 (Rec: 07/16/19 22:18 GMC7973 TELE-C10) Document 07/17/19 06:00 FWT4366 (Rec: 07/17/19 06:50 MEU4267 TELE-M06) Document 07/17/19 09:34 DZN3057 (Rec: 07/17/19 09:34 ESJ3479 TELE-C11) Document 07/17/19 14:00 QPS3555 (Rec: 07/17/19 14:12 IRI1699 TELE-C10) Document 07/17/19 22:00 WAL3656 (Rec: 07/18/19 00:03 TTM1429 TELE-C06) Document 07/18/19 06:00 TNU9252 (Rec: 07/18/19 06:21 BKX9714 TELE-C06) Document 07/18/19 13:52 HFX6617 (Rec: 07/18/19 13:53 LRB7426 TELE-C11) Document 07/18/19 22:00 ZLH3024 (Rec: 07/18/19 22:37 RUS4181 TELE-C10) Document 07/19/19 05:51 DJN7843 (Rec: 07/19/19 05:52 YND6415 TELE-C05) Document 07/19/19 10:00 KRJ4536 (Rec: 07/19/19 20:06 TQE6284 TELE-C11) Document 07/19/19 14:00 YFQ3489 (Rec: 07/19/19 14:29 ORR4998 TELE-C10) Document 07/19/19 22:00 VIY4312 (Rec: 07/19/19 22:29 LIZ0131 TELE-C05) Document 07/20/19 05:53 ZLM9342 (Rec: 07/20/19 05:54 OWN3950 TELE-C13) Document 07/20/19 14:00 NGH2470 (Rec: 07/20/19 16:07 WIT2993 TELE-C05) Document 07/20/19 22:00 IXO1578 (Rec: 07/20/19 22:50 CQO2024 TELE-C09) Document 07/21/19 06:00 OUC6131 (Rec: 07/21/19 06:40 AHV7794 TELE-C10) Document 07/21/19 12:46 VBD0139 (Rec: 07/21/19 12:46 FHB3574 TELE-C10) Document 07/21/19 22:00 DWP6801 (Rec: 07/21/19 22:30 XCW4212 TELE-C06) Document 07/21/19 22:15 MTX5907 (Rec: 07/21/19 23:06 EBJ2868 TELE-C10) Document 07/22/19 06:00 FKM3837 (Rec: 07/22/19 06:22 HCH7754 TELE-C06) Document 07/22/19 14:00 IRA8560 (Rec: 07/22/19 14:43 OFP4140 TELE-C09) Document 07/22/19 22:00 VUA1615 (Rec: 07/22/19 22:22 YGY6145 TELE-C07) Document 07/23/19 06:00 WHT2912 (Rec: 07/23/19 06:20 DOM5633 TELE-C07) Document 07/23/19 14:00 GJP1412 (Rec: 07/23/19 14:09 BNQ4045 TELE-C13) Document 07/23/19 22:00 LUY9236 (Rec: 07/23/19 22:20 JEA3911 TELE-C03) Document 07/24/19 05:34 FLF1010 (Rec: 07/24/19 05:34 EIE6642 TELE-C06) Document 07/24/19 10:50 ZJN4718 (Rec: 07/24/19 10:50 GNK9884 TELE-C07) Document 07/24/19 14:00 YUE4673 (Rec: 07/24/19 14:26 WVN9461 TELE-C01) Document 07/24/19 21:27 RCI5404 (Rec: 07/24/19 21:29 CTN1239 TELE-C08) Document 07/25/19 05:30 XMJ5187 (Rec: 07/25/19 05:34 JCO9701 TELE-C06) Document 07/25/19 14:00 TVQ8935 (Rec: 07/25/19 18:25 HKD0694 TELE-C01) Document 07/25/19 22:00 IDG0506 (Rec: 07/26/19 01:00 CAH6617 TELE-C33) Document 07/26/19 06:00 WXF2143 (Rec: 07/26/19 06:32 BIO3653 TELE-C11) Document 07/26/19 14:00 AUM6966 (Rec: 07/26/19 18:38 DJQ9521 TELE-C01) Document 07/26/19 22:00 MBQ4618 (Rec: 07/27/19 06:52 XNB6174 TELE-C10) Document 07/27/19 06:00 DUU3413 (Rec: 07/27/19 06:57 GAL5466 TELE-C10) - Physical Exam General Physical Exam Comment: She is lying alf on her right side. She moves her arms and legs to command. She is no respiratory distress. General: No Cyanosis, Yes Anemia, No Jaundice, No Clubbing Lungs and Chest: Yes: Chest Expansion Full, Chest Expansion Symetrica. No: Vessicular Breath Sounds - decreased air entry bases, Crackles, Wheezes, Respiratory Distress, Use of Accessory Muscles Heart Rate and Rhythm: Regular Additional Cardiovascular: Yes: Normal Heart Sounds, Pedal Edema - trace. No: Heart Murmur Abdominal Exam: Yes: Soft, Abdominal Tenderness - left lower quadrant, Bowel Sounds Present. No: Distention, Guarding, Rebound Tenderness Results - Results Other Results/Reports: *[facility]* [place] [address] Fax #: [phone] Transthoracic Echocardiogram Summary: - Left ventricle: Systolic function is normal. The estimated ejection fraction is 50-55%. - Right ventricle: Pacer wire noted in the right ventricle. - Ventricular septum: There is abnormal interventricular septal wall motion consistent with an RV pacemaker. - Left atrium: The atrium is severely dilated. - Right atrium: The atrium is moderately dilated. Pacer wire noted in right atrium. - Atrial septum: A PFO is demonstrated by color Doppler. - Mitral valve: There is moderate regurgitation. The regurgitant PISA radius is 0.6 cm. The maximal regurgitant velocity is 5.97 m/sec. The effective regurgitant orifice (PISA) is 0.12 cm^2. - Aortic valve: The findings are consistent with mild to moderate stenosis. There is mild regurgitation. The peak systolic velocity is 2.47 m/sec. The systolic velocity-time integral is 47.1 cm. The mean systolic gradient is 11.0 mm Hg. The LVOT to aortic valve VTI ratio is 0.32. The valve area by the peak velocity method is 1.02 cm^2. - Tricuspid valve: There is moderate-severe regurgitation. - Pulmonic valve: There is trace to mild regurgitation. - Pericardium, extracardiac: There is no significant pericardial effusion. - Pulmonary arteries: Systolic pressure is moderately increased. - C/t 08/24/2016, left ventricle ejection fraction stable. was mild then. Mitral regurgitation is stable. Tricuspid regurgitation is more now. PHTN is more now from borderline mild then. Assessment - Problem List Assessment: Patient Problems Altered mental state (Acute) Aortic stenosis (Acute) Atrial fibrillation with RVR (Acute) CRP elevated (Acute) Congestive heart failure, acute (Acute) Leukocytosis (Acute) Pleural effusion (Acute) Pneumonia (Acute) Urinary tract infection (Acute) Uterine mass (Acute) Anemia (Chronic) DVT prophylaxis (Chronic) Depression (Chronic) Essential hypertension (Chronic) Failure to thrive (Chronic) Full code status (Chronic) History of CVA (cerebrovascular accident) (Chronic) Physical deconditioning (Chronic) Severe protein-calorie malnutrition (Chronic) Type 2 diabetes mellitus (Chronic) Plan: Acute medical problems: Congestive heart failure, acute (Acute) Aortic stenosis (Acute) This is diastolic dysfunction plus aortic stenosis. She has bilateral pleural effusions - transudate. This was considered due to a parapneumonic process. However, it could be secondary to CHF - her LV EF is normal. Her BNP is very high (>1300). I will start her on diuretic therapy - her BP will take this and her BUN/Cr are normal. She requires daily weights and I and O if possible Pneumonia (Acute) I am not convinced by this diagnosis. If this were the case, I would expect the CRP and WBC to have come down with zosyn. It hasn't. I think her infection is likely related to the uterine mass - although no clear abscess was seen on CT scan. Dr. Chilel also favors this perspective. If there is a collection, I think it will require surgical removal Pleural effusion (Acute) I think this transudate is due to CHF Altered mental state (Acute) I am meeting her for the first time. This could be dementia plus an acute illness - i.e. delirium. Atrial fibrillation with RVR (Acute) Her ventricular rate is no longer fast. She is mostly paced. CRP elevated (Acute) Leukocytosis (Acute) She presented with a UTI. This has been treated with antibacterials to which the Proteus was susceptible (indeed, all antibacterials would be effective). I doubt this is an acute problem at present. I suspect the elevated CRP and WBC are due to her uterine mass. There has not been any downward trend in either of these acute phase response markers. I will also check her Sed rate. I think she requires surgical management. Radiology recommended an MRI of her uterus. I doubt this is going to be helpful. We could certainly obtain a gynecological opinion. Dr. Mireya Finnegan mentions a Dr. Valente - There is a Dr. Hebert Valente in [place] who is a green end department supervisor. I have no idea if he has responded. Urinary tract infection (Acute) As noted above, I think this is resolved. Uterine mass (Acute) I worry that this is the cause of her inflammation and her infection. Comorbidities: Essential hypertension (Chronic) her BP is raised today - this will come down with diuretic therapy Anemia (Chronic) not checked today Failure to thrive (Chronic) This is a major issue surrounding how hard to strive with this patient medically Type 2 diabetes mellitus (Chronic) This is not currently a problem Mental capacity: Dr. Santos Browne 07/16/2019 states she lacks capacity for decision making. Today she doesn't appear improved in this domain. Secondary diagnoses: DVT prophylaxis (Chronic) Depression (Chronic) Full code status (Chronic) History of CVA (cerebrovascular accident) (Chronic) Physical deconditioning (Chronic) Severe protein-calorie malnutrition (Chronic) Phone call to Nicholas Haywood (health care proxy). I gave him an update. He chooses to treat her CHF and keep her stable over the weekend (today is Monday ). He wants Dr. Finnegan re-evaluate and find out about Dr. Valente's opinion Monday.
[2019-07-27] MEDS: Furosemide IV* 10 MG/ML 2 ML VIAL (20 MG) IV SLOW PU SCH (20:12)
[2019-07-27] MEDS: Senna TAB 8.6 mg* TAB PO SCH (20:22)
[2019-07-27] MEDS ORDERED: Potassium Chlor TAB* 20 MEQ TAB.ER PO SCH (21:00)
[2019-07-27] MEDS: traMADol TAB* 50 MG PO PRN (21:24)
[2019-07-28] MEDS: Acetaminophen TAB* 325 MG PO PRN ×2 (01:26→18:02)
[2019-07-28] MEDS: ZOSYN 3.375 GM Q8H per EXTENDED INFUSION IVPB SCH ×6 (04:14→19:34)
[2019-07-28 05:42] LABS: ABS Basophils 0.1 10^3/ul (0-0.2); ABS Eosinophils 0.4 10^3/ul (0-0.6); ABS Lymphocytes 1.4 10^3/ul (1.0-4.8); ABS Monocytes 0.7 10^3/ul (0-0.8); Eosinophil % 2.8 %; Hematocrit 27 % (35-47); Hemoglobin 8.8 g/dL (12.0-16.0); Mean Corpuscular HGB Conc 33 g/dL (31-36); Mean Corpuscular Hemoglobin 28 pg (27-31); Mean Corpuscular Volume 86 fL (80-97); Mean Platelet Volume 7.6 fL (7.4-10.4); Nucleated Red Blood Cells % 0.1; Platelet Count 589 10^3/uL (150-450); Red Blood Count 3.11 10^6 /uL (3.70-4.87); Red Cell Distribution Width 15 % (10-15); White Blood Count 13.5 10^3/uL (3.5-10.8)
[2019-07-28 06:00] LABS: BUN/Creatinine Ratio 15.5 (8-20); C Reactive Protein 170.59 mg/L (<8.01); Calcium 8.4 mg/dL (8.6-10.3); EGFR African American 94.2 (>60); EGFR Non-African American 77.9 (>60); Potassium 4.1 mmol/L (3.5-5.0)
[2019-07-28] MEDS: Furosemide IV* 10 MG/ML 2 ML VIAL (20 MG) IV SLOW PU SCH ×2 (08:10→20:38)
[2019-07-28] MEDS: Apixaban* 2.5 MG TAB PO SCH ×2 (08:11→20:30)
[2019-07-28] MEDS: Cyanocobalamin TAB* 500 MCG PO SCH (08:12)
[2019-07-28] MEDS: Digoxin TAB* 0.125 MG PO SCH (08:12)
[2019-07-28] MEDS: Metoprolol Succinate XL TAB* 50 MG PO SCH ×2 (08:19→20:30)
[2019-07-28 09:30] LABS: Erythrocyte Sed Rate > 120 mm/Hr (0-29)
[2019-07-28] MEDS: Potassium Chlor TAB* 20 MEQ TAB.ER PO SCH ×2 (10:30→20:30)
[2019-07-28] MEDS: Escitalopram * 10 MG TAB PO SCH (10:30)
--- NOTE | 2019-07-28 10:59 | PN ---
Subjective - Subjective Reason for Note: Progress Note History: According to the nursing staff she has been deeply asleep most of the time, however she was being cleaned up when I entered and was alert. She is disoriented and unable to give an account of herself. She continues to describe lower abdominal discomfort. Active Problems: Active Problems Altered mental state (Acute) R41.82 Aortic stenosis (Acute) I35.0 Atrial fibrillation with RVR (Acute) I48.91 - Secondary to non compliance and mild dehydration. - Continue Metoprolol and Apixaban. CRP elevated (Acute) R79.82 Congestive heart failure, acute (Acute) I50.9 Leukocytosis (Acute) D72.829 Pleural effusion (Acute) J90 Pneumonia (Acute) J18.9 Urinary tract infection (Acute) - Abnormal UA - follow urine culture. - Start Ceftriaxone. Uterine mass (Acute) N85.8 Anemia (Chronic) D64.9 - Likely iron deficiency in the setting of uterine bleeding, but could also be anemia of chronic disease. - Check anemia w/u. DVT prophylaxis (Chronic) Z29.9 - Apixaban. Depression (Chronic) F32.9 - Patient does appear to have cognitive decline - dementia vs pseudodementia. - Will resume SSRI, check B12. TSH is normal. Essential hypertension (Chronic) I10 Failure to thrive (Chronic) FNU0825 - As per records, patient weighed 138lbs in 2017, now down to 101lbs. - Check prealbumin. - Also concerned for malignancy - check CT abd/pelvis. Full code status (Chronic) Z78.9 History of CVA (cerebrovascular accident) (Chronic) Z86.73 Physical deconditioning (Chronic) R53.81 - PT/OT evaluation. - Will likely need SNF. Severe protein-calorie malnutrition (Chronic) E43 - Chronic severe protein calorie malnutrition as evidenced by temporal muscle wasting, inadequate oral intake, weight loss, underweight - BMI 16.8. - Dietitian input appreciated - continue nutritional supplementals. Type 2 diabetes mellitus (Chronic) Current Medications: Current Medications Acetaminophen (Tylenol Tab*) 650 mg PO Q4H PRN PRN Reason: MILD PAIN or TEMP > 100.4 Last Admin: 07/28/19 01:26 Dose: 650 mg Apixaban (Eliquis*) 2.5 mg PO BID TAVO Last Admin: 07/28/19 08:11 Dose: 2.5 mg Cyanocobalamin (Vitamin B12 Tab*) 1,000 mcg PO QAM [facility] Last Admin: 07/28/19 08:12 Dose: 1,000 mcg Digoxin (Lanoxin Tab*) 0.125 mg PO 0900 [facility] Last Admin: 07/28/19 08:12 Dose: 0.125 mg Docusate Sodium (Colace Cap*) 100 mg PO BID PRN PRN Reason: CONSTIPATION Escitalopram Oxalate (Lexapro *) 15 mg PO DAILY [facility] Last Admin: 07/27/19 09:04 Dose: 15 mg Ferrous Sulfate (Ferrous Sulfate Tab*) 325 mg PO EVERY OTHER DAY [facility] Last Admin: 07/27/19 09:09 Dose: 325 mg Furosemide (Lasix Iv*) 20 mg IV SLOW PU BID [facility] Last Admin: 07/28/19 08:10 Dose: 20 mg Piperacillin Sod/Tazobactam (Sod 3.375 gm/ Sodium Chloride) 100 mls @ 25 mls/ hr IVPB Q8H [facility] Last Admin: 07/28/19 04:14 Dose: 25 mls/hr Magnesium Hydroxide (Milk Of Magnesia Liq*) 30 ml PO Q6H PRN PRN Reason: CONSTIPATION Metoprolol Succinate (Toprol Xl Tab*) 75 mg PO BID [facility] Last Admin: 07/28/19 08:19 Dose: 75 mg Miscellaneous (Ativan Pyxis Ochoa) 1 ea N/A .ATIVAN IV OCHOA PRN PRN Reason: PYXIS OCHOA Pharmacy Consult (Zosyn Per Pharmacy*) 1 note FOLLOW UP .ZOSYN PER PHARMACY [facility] Potassium Chloride (Klor Con Er Tab*) 20 meq PO BID [facility] Last Admin: 07/27/19 20:00 Dose: 20 meq Rosuvastatin Calcium (Crestor (Nf)) 5 mg PO MoWeFr@0900 [facility]; Protocol Last Admin: 07/26/19 09:39 Dose: 5 mg Senna (Senokot 8.6 Mg Tab*) 1 tab PO BEDTIME [facility] Last Admin: 07/27/19 20:22 Dose: Not Given Tramadol HCl (Ultram*) 50 mg PO Q4H PRN PRN Reason: PAIN - SEVERE Last Admin: 07/27/19 21:24 Dose: 50 mg Home Medications: Home Medications Medication Instructions Recorded Confirmed Type Warfarin TAB(*) [Coumadin TAB(*)] 5 mg PO SEE INSTRUCTIONS 09/23/13 10/18/16 History Digoxin [Digitek] 125 mcg PO DAILY 08/23/16 10/18/16 History Escitalopram Oxalate [Lexapro 10 10 mg PO DAILY 08/23/16 10/18/16 History mg] Acetaminophen [Acetaminophen Extra 500 mg PO BID PRN 10/17/16 10/17/16 History Stren] Cholecalciferol TAB* [Vitamin D 2,000 units PO DAILY 10/17/16 10/18/16 History TAB*] Clopidogrel TAB* [Plavix TAB*] 75 mg PO DAILY 10/17/16 10/18/16 History Cyanocobalamin (Vitamin B-12) 1,000 mcg SL QAM 10/17/16 10/18/16 History [Vitamin B-12] Glucosamine Sulfate 1,000 mg PO BID 10/17/16 10/18/16 History Hydrochlorothiazide TAB* 25 mg PO DAILY 10/17/16 10/18/16 History [Hydrodiuril TAB*] Rosuvastatin Calcium [Crestor] 5 mg PO SEE INSTRUCTIONS 10/17/16 10/18/16 History Ubidecarenone [Coenzyme Q10] 200 mg PO DAILY 10/17/16 10/18/16 History raNITIdine HCl [Zantac] 75 mg PO DAILY PRN 10/17/16 10/18/16 History Ascorbic Acid [Vitamin C/Aleisha Hips 1,000 mg PO DAILY 10/18/16 10/18/16 History Tr] Turmeric (Curcuma Longa) [Turmeric] 500 mg PO DAILY 10/18/16 10/18/16 History Acetaminophen TAB* [Tylenol TAB*] 650 mg PO Q4H PRN #0 tab 10/19/16 Rx Al Hydrox/Mg Hydrox/Simet LIQ* 30 ml PO Q6H PRN #0 udc 10/19/16 Rx [Maalox Plus*] Cephalexin CAP* [Keflex CAP*] 500 mg PO TID #10 cap 10/19/16 Rx Metoprolol Succinate XL TAB* 50 mg PO BEDTIME #90 tab.xl 10/19/16 Rx [Toprol XL TAB*] Allergies: Allergies Allergy/AdvReac Type Severity Reaction Status Date / Time aspirin Allergy GI Upset Verified 06/26/18 14:12 atorvastatin [From Lipitor] Allergy Muscle Ache Verified 06/26/18 14:12 Objective - Vital Signs Vital Signs: Vital Signs 07/27/19 07/27/19 07/27/19 11:20 15:26 16:00 Temperature 97.1 F 97.6 F Pulse Rate 63 60 Respiratory 20 17 Rate Blood Pressure 162/80 160/75 (mmHg) O2 Sat by Pulse 96 94 93 Oximetry 07/27/19 07/27/19 07/27/19 19:15 20:00 21:24 Temperature 98.2 F Pulse Rate 62 Respiratory 16 16 20 Rate Blood Pressure 148/57 (mmHg) O2 Sat by Pulse 96 Oximetry 07/27/19 07/27/19 07/28/19 23:15 23:24 00:00 Temperature 97.8 F Pulse Rate 61 Respiratory 16 16 Rate Blood Pressure 149/91 (mmHg) O2 Sat by Pulse 92 92 Oximetry 07/28/19 07/28/19 07/28/19 03:15 04:51 07:15 Temperature 97.9 F 97.6 F Pulse Rate 59 73 Respiratory 16 22 Rate Blood Pressure 142/56 159/61 (mmHg) O2 Sat by Pulse 94 94 91 Oximetry 07/28/19 08:12 Temperature Pulse Rate 73 Respiratory Rate Blood Pressure (mmHg) O2 Sat by Pulse Oximetry - Intake and Output Intake and Output: Intake & Output 07/25/19 07/26/19 07/27/19 07/28/19 11:59 11:59 11:59 11:59 Intake Total 871 1035 630 360 Output Total 200 0 Balance 871 835 630 360 Weight 101 lb Intake: IV Fluids 151 166 20 30 NS (0.9%) 10 Zosyn 151 166 20 20 IVPB 240 469 130 210 NS (0.9%) 10 Zosyn 240 469 120 210 Oral 480 400 480 120 Output: Urine 200 0 Other: Estimated Void Medium Large # Bowel Movements 1 1 4 Estimated Stool Amount Medium Medium Small Large # Voids 2 4 ADLs: Meal Record Start: 07/13/19 18: 13 Freq: DAILY@0900,1400,1800 Status: Active Protocol: Created 07/13/19 18:13 System (Rec: 07/13/19 18:13 System TELE-C15) Document 07/14/19 09:00 [id number] (Rec: 07/14/19 11:10 JXG2556 TELE-C11) Document 07/14/19 14:00 YNE6573 (Rec: 07/14/19 14:25 EUR7964 TELE-C11) Document 07/14/19 18:00 ZFY1421 (Rec: 07/14/19 18:01 DID8562 TELE-C01) Document 07/15/19 09:00 JGY3113 (Rec: 07/15/19 09:11 YUF6916 TELE-C09) Document 07/15/19 13:17 GOR1303 (Rec: 07/15/19 13:17 CWX7429 TELE-C09) Document 07/15/19 18:00 CIM0311 (Rec: 07/15/19 18:27 CKE5960 TELE-C06) Document 07/16/19 08:45 ZOV1303 (Rec: 07/16/19 08:45 YAS1469 TELE-C09) Document 07/16/19 13:54 ETO9206 (Rec: 07/16/19 13:54 CQP2121 TELE-C11) Document 07/16/19 17:42 YHZ2700 (Rec: 07/16/19 17:43 ZMZ8705 TELE-C11) Document 07/17/19 09:00 WAT6550 (Rec: 07/17/19 09:34 CLN4355 TELE-C11) Document 07/17/19 13:33 ZJJ2643 (Rec: 07/17/19 13:33 INU0679 TELE-C01) Document 07/17/19 17:54 ELR9800 (Rec: 07/17/19 17:54 JLG2890 TELE-C09) Document 07/18/19 09:00 AMR5859 (Rec: 07/18/19 09:10 CTU6064 TELE-C11) Document 07/18/19 13:52 JUB6957 (Rec: 07/18/19 13:53 PLE9023 TELE-C11) Document 07/18/19 18:00 WPI3099 (Rec: 07/18/19 19:07 IAU0524 TELE-C10) Document 07/19/19 09:00 VOY7345 (Rec: 07/19/19 10:22 PAH9500 TELE-C10) Document 07/19/19 14:00 OCW0389 (Rec: 07/19/19 14:29 AVE9208 TELE-C10) Document 07/19/19 18:00 QBU9404 (Rec: 07/19/19 19:47 TNF0924 TELE-M18) Document 07/20/19 09:00 WUL9689 (Rec: 07/20/19 09:12 PYY2002 TELE-C01) Document 07/20/19 14:00 RPA7769 (Rec: 07/20/19 16:08 RQW1688 TELE-C01) Document 07/20/19 18:00 ZXU7029 (Rec: 07/20/19 18:38 IUN3606 TELE-C01) Document 07/21/19 09:00 GRJ5433 (Rec: 07/21/19 09:50 BIY5299 TELE-C01) Document 07/21/19 14:00 NZN4179 (Rec: 07/21/19 14:34 CZO3527 TELE-C01) Document 07/21/19 18:00 HQQ8183 (Rec: 07/21/19 21:46 IPC2134 TELE-C06) Document 07/22/19 09:00 IHG4401 (Rec: 07/22/19 10:26 JGN0977 TELE-C09) Document 07/22/19 14:00 ITE9499 (Rec: 07/22/19 14:05 JCO1350 TELE-C09) Document 07/22/19 18:00 DKD8459 (Rec: 07/22/19 20:10 XBM9753 TELE-C07) Document 07/23/19 09:00 PGO8295 (Rec: 07/23/19 11:09 TXJ2229 TELE-C07) Document 07/23/19 13:40 QPA2239 (Rec: 07/23/19 13:40 LDT5373 TELE-C07) Document 07/23/19 18:00 QBE2445 (Rec: 07/23/19 20:37 ROR0372 TELE-C03) Document 07/24/19 09:00 JQL2323 (Rec: 07/24/19 10:45 YTY1401 TELE-C07) Document 07/24/19 14:00 SVK1616 (Rec: 07/24/19 14:26 VNW0784 TELE-C01) Document 07/24/19 17:28 KUC3794 (Rec: 07/24/19 17:28 XKP4029 TELE-C03) Document 07/25/19 09:00 HIN2212 (Rec: 07/25/19 16:06 ASY2096 TELE-C03) Document 07/25/19 14:00 XYC1067 (Rec: 07/25/19 18:24 ZJW3512 TELE-C01) Document 07/25/19 18:00 KTL4569 (Rec: 07/25/19 18:26 MRQ4594 TELE-C01) Document 07/26/19 09:00 QIC7423 (Rec: 07/26/19 10:57 HTS9737 TELE-C11) Document 07/26/19 14:00 UAP3261 (Rec: 07/26/19 18:10 KZU7873 TELE-C01) Document 07/26/19 18:00 MNZ1326 (Rec: 07/26/19 18:11 EXE0594 TELE-C01) Document 07/27/19 09:00 EIU1691 (Rec: 07/27/19 11:46 TYA5216 TELE-C08) Document 07/27/19 14:00 WHV7521 (Rec: 07/27/19 14:32 MED4540 TELE-C01) Document 07/27/19 18:00 DQM0176 (Rec: 07/27/19 18:50 WZY8837 TELE-C07) Intake and Output Start: 07/13/19 18: 13 Freq: DAILY@0600,1400,2200 Status: Active Protocol: Created 07/13/19 18:13 System (Rec: 07/13/19 18:13 System TELE-C15) Document 07/14/19 14:05 IYI6243 (Rec: 07/14/19 14:06 WRP6221 TELE-M06) Document 07/14/19 21:43 LNB7471 (Rec: 07/14/19 21:45 KZZ8347 TELE-C07) Document 07/15/19 05:58 VQA9430 (Rec: 07/15/19 06:01 GIQ3820 TELE-C07) Document 07/15/19 13:32 OXP2557 (Rec: 07/15/19 13:32 NTR7358 TELE-C09) Document 07/15/19 21:28 PGG6910 (Rec: 07/15/19 21:29 HRH5874 TELE-C05) Document 07/16/19 06:00 NLV3040 (Rec: 07/16/19 06:20 IZZ9388 TELE-C09) Document 07/16/19 13:55 HLA8228 (Rec: 07/16/19 13:55 IRQ2573 TELE-C11) Document 07/16/19 22:00 EVC3739 (Rec: 07/16/19 22:18 LNT6844 TELE-C10) Document 07/17/19 06:00 NUI5870 (Rec: 07/17/19 06:50 MIA4797 TELE-M06) Document 07/17/19 09:34 EAD3766 (Rec: 07/17/19 09:34 KMN6001 TELE-C11) Document 07/17/19 14:00 BJU3285 (Rec: 07/17/19 14:12 AAN3502 TELE-C10) Document 07/17/19 22:00 ZFP9259 (Rec: 07/18/19 00:03 USB2490 TELE-C06) Document 07/18/19 06:00 RMI3321 (Rec: 07/18/19 06:21 WDB9709 TELE-C06) Document 07/18/19 13:52 PFF4448 (Rec: 07/18/19 13:53 SUS5661 TELE-C11) Document 07/18/19 22:00 WXI0787 (Rec: 07/18/19 22:37 XIP4073 TELE-C10) Document 07/19/19 05:51 NCB5349 (Rec: 07/19/19 05:52 BAA9486 TELE-C05) Document 07/19/19 10:00 ZPH1437 (Rec: 07/19/19 20:06 MLO0029 TELE-C11) Document 07/19/19 14:00 DXH0149 (Rec: 07/19/19 14:29 IRF8276 TELE-C10) Document 07/19/19 22:00 ZOH2693 (Rec: 07/19/19 22:29 QBC4567 TELE-C05) Document 07/20/19 05:53 MQK4699 (Rec: 07/20/19 05:54 XGP6047 TELE-C13) Document 07/20/19 14:00 AIW6500 (Rec: 07/20/19 16:07 MBY9453 TELE-C05) Document 07/20/19 22:00 NPG4320 (Rec: 07/20/19 22:50 TQI3318 TELE-C09) Document 07/21/19 06:00 MQO9911 (Rec: 07/21/19 06:40 WRN5372 TELE-C10) Document 07/21/19 12:46 IRA1952 (Rec: 07/21/19 12:46 PBX0276 TELE-C10) Document 07/21/19 22:00 PLB8555 (Rec: 07/21/19 22:30 NTA0979 TELE-C06) Document 07/21/19 22:15 ZLM2798 (Rec: 07/21/19 23:06 VGJ8120 TELE-C10) Document 07/22/19 06:00 UTO8303 (Rec: 07/22/19 06:22 ZDM1640 TELE-C06) Document 07/22/19 14:00 QIA5983 (Rec: 07/22/19 14:43 VMC5511 TELE-C09) Document 07/22/19 22:00 LBF5380 (Rec: 07/22/19 22:22 PQE7723 TELE-C07) Document 07/23/19 06:00 JDP2405 (Rec: 07/23/19 06:20 LEL5036 TELE-C07) Document 07/23/19 14:00 RWI7996 (Rec: 07/23/19 14:09 KUD5407 TELE-C13) Document 07/23/19 22:00 RPF7721 (Rec: 07/23/19 22:20 NED5338 TELE-C03) Document 07/24/19 05:34 SIX4147 (Rec: 07/24/19 05:34 SIM8229 TELE-C06) Document 07/24/19 10:50 KBC3991 (Rec: 07/24/19 10:50 JOX9310 TELE-C07) Document 07/24/19 14:00 PEP2400 (Rec: 07/24/19 14:26 BZB5735 TELE-C01) Document 07/24/19 21:27 HSM7334 (Rec: 07/24/19 21:29 CAF2449 TELE-C08) Document 07/25/19 05:30 PCO2666 (Rec: 07/25/19 05:34 MLD7422 TELE-C06) Document 07/25/19 14:00 UDR5087 (Rec: 07/25/19 18:25 SVU7186 TELE-C01) Document 07/25/19 22:00 CWV1845 (Rec: 07/26/19 01:00 MMS3853 TELE-C33) Document 07/26/19 06:00 BNQ2489 (Rec: 07/26/19 06:32 GNW2976 TELE-C11) Document 07/26/19 14:00 XGT0255 (Rec: 07/26/19 18:38 NAR5434 TELE-C01) Document 07/26/19 22:00 VNW5071 (Rec: 07/27/19 06:52 ZWO3292 TELE-C10) Document 07/27/19 06:00 NPI4481 (Rec: 07/27/19 06:57 JNX5432 TELE-C10) Document 07/27/19 14:00 ALV9468 (Rec: 07/27/19 15:53 ADO3000 TELE-C08) Document 07/27/19 22:00 PZX6535 (Rec: 07/27/19 22:19 TRW7578 TELE-C07) Document 07/28/19 06:00 CRO7642 (Rec: 07/28/19 07:09 EAD7132 TELE-C07) - Physical Exam General Physical Exam Comment: Warm and well perfused. General: No Cyanosis, No Anemia, No Jaundice, No Clubbing Lungs and Chest: Yes: Chest Expansion Symetrica, Vessicular Breath Sounds, Crackles - a few basal crackles. No: Chest Expansion Full - She doesn't take deep breaths unless instructed, Percussion Note Resonant - dull bases, Wheezes, Respiratory Distress, Use of Accessory Muscles Heart Rate and Rhythm: Regular Additional Cardiovascular: Yes: Normal Heart Sounds. No: Heart Murmur, Pedal Edema Abdominal Exam: Yes: Soft, Abdominal Tenderness - suprapubic region, Bowel Sounds Present. No: Distention, Guarding, Rebound Tenderness Results - Results Lab Results: Laboratory Results - last 24 hr 07/28/19 07/28/19 04:55 04:55 WBC 13.5 H RBC 3.11 L Hgb 8.8 L Hct 27 L MCV 86 MCH 28 MCHC 33 RDW 15 Plt Count 589 H MPV 7.6 Neut % (Auto) 81.1 Lymph % (Auto) 10.0 Dane % (Auto) 5.4 Eos % (Auto) 2.8 Baso % (Auto) 0.7 Absolute Neuts (auto) 11.0 H Absolute Lymphs (auto) 1.4 Absolute Monos (auto) 0.7 Absolute Eos (auto) 0.4 Absolute Basos (auto) 0.1 Absolute Nucleated RBC 0.0 Nucleated RBC % 0.1 ESR > 120 H Sodium 132 L Potassium 4.1 Chloride 96 L Carbon Dioxide 28 Anion Gap 8 BUN 11 Creatinine 0.71 Est GFR ( Amer) 94.2 Est GFR (Non-Af Amer) 77.9 BUN/Creatinine Ratio 15.5 Glucose 97 Calcium 8.4 L C-Reactive Protein 170.59 H Assessment - Problem List Assessment: Patient Problems Altered mental state (Acute) Aortic stenosis (Acute) Atrial fibrillation with RVR (Acute) CRP elevated (Acute) Congestive heart failure, acute (Acute) Leukocytosis (Acute) Pleural effusion (Acute) Pneumonia (Acute) Urinary tract infection (Acute) Uterine mass (Acute) Anemia (Chronic) DVT prophylaxis (Chronic) Depression (Chronic) Essential hypertension (Chronic) Failure to thrive (Chronic) Full code status (Chronic) History of CVA (cerebrovascular accident) (Chronic) Physical deconditioning (Chronic) Severe protein-calorie malnutrition (Chronic) Type 2 diabetes mellitus (Chronic) Plan: Acute medical problems: Uterine mass (Acute) This is likely the main event - she has pain in this region. She has considerable inflammatory response. The question is whether she is resilient enough for a hysterectomy and whether this is safely performed here or elsewhere. Dr. Mireya Finnegan will decide if there should be a biopsy first. Congestive heart failure, acute (Acute) - diastolic dysfunction, Aortic stenosis (Acute) Pleural effusion (Acute) She is incontinent and difficult to weigh. However, she has no acute respiratory distress and was comfortable lying flat when I first entered. There is dullness right at the bases, but there is air entry just above with some crackles. I will give her one more day of parenteral loop diuretics. Dr. Mireya Finnegan will assess Monday morning Atrial fibrillation with RVR (Acute) Rate is controlled Altered mental state (Acute) She was alert when I saw her, but not so for most of the time according to the nursing staff Pneumonia (Acute) I remain skeptical about this diagnosis Urinary tract infection (Acute) by now this is history CRP elevated (Acute) Leukocytosis (Acute) This is unaltered. Her sed rate is above the upper limit of the assay. I will check her rheumatoid factor today. Antibacterials make no difference and probably can be stopped. I wonder if this is a paraneoplastic process. Anemia (Chronic) I think this is an acute phase response as with the CRP, Sed rate and leukocytosis Secondary diagnoses DVT prophylaxis (Chronic) Depression (Chronic) Essential hypertension (Chronic) Failure to thrive (Chronic) Full code status (Chronic) History of CVA (cerebrovascular accident) (Chronic) Physical deconditioning (Chronic) Severe protein-calorie malnutrition (Chronic) Type 2 diabetes mellitus (Chronic) Detailed discussion with in person with Nicholas Yobany (nephew/health care proxy) - I informed him about her medical condition and gave him likely options: * Uterine mass biopsy - most likely excisional/hysterectomy and BSO. This would likely be performed in [place], unless local gynecologists are prepared to take on this case * Conservative, supportive care - unlikely to be effective * Hospicecare - she has a health care proxy/living will that he will bring in tomorrow We will keep her comfortable until tomorrow. Dr. Mireya Finnegan will help Nicholas Yobany decide if she would prefer acute medical care or comfort care. The problem here is that we don't have a tissue diagnosis. I answered many questions. 20 mins in all of discussion.
[2019-07-28] MEDS: Senna TAB 8.6 mg* TAB PO SCH (20:20)
[2019-07-29] MEDS: ZOSYN 3.375 GM Q8H per EXTENDED INFUSION IVPB SCH ×2 (03:36)
[2019-07-29] MEDS: Escitalopram * 10 MG TAB PO SCH (08:55)
[2019-07-29] MEDS: Cyanocobalamin TAB* 500 MCG PO SCH (08:55)
[2019-07-29] MEDS: Metoprolol Succinate XL TAB* 50 MG PO SCH ×2 (08:55→20:08)
[2019-07-29] MEDS: Apixaban* 2.5 MG TAB PO SCH ×2 (08:55→20:08)
[2019-07-29] MEDS: Digoxin TAB* 0.125 MG PO SCH (08:55)
[2019-07-29] MEDS: Potassium Chlor TAB* 20 MEQ TAB.ER PO SCH ×2 (08:55→20:09)
[2019-07-29] MEDS: CMC:Rosuvastatin (NF) 5 MG TAB PO SCH (08:55)
[2019-07-29] MEDS: Ferrous Sulfate TAB* 325 MG PO SCH (08:56)
[2019-07-29] MEDS ORDERED: Furosemide IV* 10 MG/ML 2 ML VIAL (20 MG) IV ONE (09:49)
--- NOTE | 2019-07-29 10:14 | PN ---
Progress Note - Progress Note Date of Service: 07/29/19 SOAP: Subjective: CC: leukocytosis HPI: 89 year old woman with pelvic mass, admitted with encephalopathy and leukocytosis. Mental status improving, more awake and no complaints. No fevers or diarrhea per RN. Objective: Vital Signs Temp 36.8 C 07/29/19 07:48 Pulse 75 07/29/19 08:55 Resp 20 07/29/19 08:00 BP 167/78 07/29/19 07:48 Pulse Ox 99 07/29/19 08:00 Intake & Output 07/28/19 07/29/19 07/29/19 18:59 06:59 18:59 Intake Total 430 100 Output Total 200 Balance 230 100 Weight 124 lb 8 oz Intake: IV Fluids 25 Zosyn 25 IVPB 100 Zosyn 100 Oral 405 0 Output: Urine 200 Other: # Voids 3 Gen:awake, no distress HEENT: no thrush Heart:Regular, no murmur Lungs:decreased BS at bases Abd:+BS NTND soft Skin: no rash Assessment: 1. Leukocytosis and elevated CRP, persist but she is improving. I think they are due to pelvic mass necorsis and/or secondary infection of the mass 2. pleural effusion, bilateral, elevated BNP 3. T2DM Plan: 1. change zosyn to augmentin while awaiting decisions on pelvic mass Discussed with Dr Finnegan
[2019-07-29] MEDS: Acetaminophen TAB* 325 MG PO PRN (12:34)
[2019-07-29] MEDS: traMADol TAB* 50 MG PO PRN ×2 (13:25→20:09)
[2019-07-29] MEDS: Senna TAB 8.6 mg* TAB PO SCH (20:09)
[2019-07-29] MEDS: Amoxicillin/Clavulanate TAB* 500 MG PO SCH (20:09)
[2019-07-30 06:25] LABS: ABS Eosinophils 0.1 10^3/ul (0-0.6); ABS Lymphocytes 1.2 10^3/ul (1.0-4.8); ABS Monocytes 1.4 10^3/ul (0-0.8); ABS Neutrophils 10.6 10^3/ul (1.5-7.7); Eosinophil % 0.6 %; Hematocrit 28 % (35-47); Hemoglobin 9.3 g/dL (12.0-16.0); Lymphocyte % 9.3 %; Mean Corpuscular HGB Conc 33 g/dL (31-36); Mean Corpuscular Hemoglobin 29 pg (27-31); Mean Corpuscular Volume 87 fL (80-97); Mean Platelet Volume 7.1 fL (7.4-10.4); Platelet Count 605 10^3/uL (150-450); Red Blood Count 3.24 10^6 /uL (3.70-4.87); Red Cell Distribution Width 15 % (10-15); White Blood Count 13.4 10^3/uL (3.5-10.8)
[2019-07-30 06:59] LABS: C Reactive Protein 221.43 mg/L (<8.01); Calcium 8.8 mg/dL (8.6-10.3); EGFR African American 108.2 (>60); EGFR Non-African American 89.4 (>60); Potassium 3.8 mmol/L (3.5-5.0)
[2019-07-30] MEDS: Digoxin TAB* 0.125 MG PO SCH (09:06)
[2019-07-30] MEDS: Metoprolol Succinate XL TAB* 50 MG PO SCH ×2 (09:06→20:18)
[2019-07-30] MEDS: Escitalopram * 10 MG TAB PO SCH (09:08)
[2019-07-30] MEDS: Apixaban* 2.5 MG TAB PO SCH ×2 (09:08→18:59)
[2019-07-30] MEDS: Amoxicillin/Clavulanate TAB* 500 MG PO SCH ×2 (09:09→20:19)
[2019-07-30] MEDS: Cyanocobalamin TAB* 500 MCG PO SCH (09:11)
[2019-07-30] MEDS: Potassium Chlor TAB* 20 MEQ TAB.ER PO SCH ×2 (09:11→20:19)
[2019-07-30] MEDS: Furosemide IV* 10 MG/ML VIAL (40 MG) IV SCH (10:02)
[2019-07-30 10:27] LABS: Digoxin 1.1 ng/ml (0.8-2.0)
--- NOTE | 2019-07-30 12:35 | CONSULT ---
Consult Consult: 89 yo woman with PMH significant for SSS, pacer dependent, A fib/flutter, HLD, MO, right sided pleural effusion, who was admitted for weakness on 07/13/19. Dr. Hager is concerned that she has endometrial cancer but was unable to do a speculum exam in his office. He is considering whether or not a D&C is merited. We were called to see if there was any concerns from the anesthesia perspective , and if so, should she be transferred to another facility. She was in A fib with RVR but is now rate controlled. Her O2 sat is good on RA despite her bilateral pleural effusions. She does have some valvulopathies, but nothing severe. From our perspective she seems stable. I would just make sure that her DVT prophylaxis is held the morning of surgery. Thank you.
[2019-07-30] MEDS ORDERED: Furosemide IV* 10 MG/ML VIAL (40 MG) IV ONE (18:00)
--- NOTE | 2019-07-30 18:50 | CONSULT ---
Consult Consult: Mrs. Martinez is a 86 y/o postmenopausal lady. She is known to me, on 03/31/19 she had a pelvic ultrasound for postmenopausal bleeding with an endometrial stripe of 2.2cm. I was then consulted by her PCP Dr Mireya Finnegan, for evaluation and possible treatment of her postmenopausal bleeding. Due to significant vaginal atrophy and small caliber of the vagina, I was unable to proceed with an endometrial biopsy and felt that an attempt for biopsy under anesthesia would be equally futile, I therefore recommended she see a Check Viewer/ Oncologist as I highly suspected endometrial cancer due to the degree of endometrial thickness. She was referred to [facility] and was seen by Dr. Valente of [facility]/Oncology and unfortunately the patient did not have a full evaluation before being admitted to [facility] with Mental status change, encephalopathy and leukocytosis. today I was consulted by Dr. Finnegan to attempt a diagnostic Dilation and curettage to evaluate the patients endometrium, which the Check Viewer/ Oncologist had planned to do. the patient's PMHx is significant for HTN, CVA, and sick sinus syndrome. I asked to consult Anesthesia and assure she is stable to undergo the procedure proposed. The patient is confused and not able to consent for surgery, however, she had assigned her nephew, Mr. Nicholas Haywood (tel # [phone]) as her health proxy, so he can make decisions on her care. I called Mr. Haywood at 630 tonight and had a thorough discussion regarding Mrs. Martinez's hospitalization, her current condition along with why I was consulted and the procedure proposed for evaluating possible uterine pathology. After our he was able to express understanding of the indications/ contraindications, common side effects/complications, risks/benefits of the procedure (Dilation/Curettage) prior to him consenting to proceed with surgery. Plan. Dilation/Curettage post 48 hrs off anticoagulation, on 08/01/19 at earliest.
--- NOTE | 2019-07-30 19:40 | CONS ---
CC: Dr. Mireya Finnegan * CARDIOLOGY CONSULTATION: DATE OF CONSULT: 07/30/19 INDICATION FOR CONSULTATION: Congestive heart failure, atrial fibrillation, pacemaker. HISTORY OF PRESENT ILLNESS: The patient is an 89-year-old female, well known to me with a history of chronic atrial fibrillation, history of pacemaker implantation due to sick sinus syndrome, normal LV function, who was admitted to the hospital because of failure to thrive at home. The patient in the past has been diagnosed with an endometrial mass that required referral to [place] for a biopsy. The biopsy at that time just showed necrotic tissue. The patient is being evaluated for possible D and C tomorrow. In speaking with her today, she seems a little confused. She denies any specific cardiac symptoms, she denies any chest pain, she denies any shortness of breath; however, she does not seem to be at her normal baseline. The patient does not recognize me despite seeing her for the past 10 years. PAST MEDICAL HISTORY: Significant for chronic atrial fibrillation; sick sinus syndrome, pacemaker implantation; gastroesophageal reflux disease; depression; osteoarthritis; type 2 diabetes; TIA in the past. PAST SURGICAL HISTORY: Pacemaker implantation, left breast lumpectomy, endometrial biopsy up in [place] recently. OUTPATIENT MEDICATIONS: 1. Coumadin as directed. 2. Lexapro 10 mg a day. 3. Digoxin 125 mcg a day. 4. Plavix 75 mg a day. 5. Ranitidine 75 mg a day. 6. Crestor 5 mg a day. 7. Hydrochlorothiazide 25 mg a day. 8. Calciferol on a daily basis. 9. Tylenol p.r.n. 10. Metoprolol 50 mg q.h.s. ALLERGIES: ASPIRIN and ATORVASTATIN. FAMILY HISTORY: Not reviewed. SOCIAL HISTORY: She was previously living at home with her nephew, but has failed home care. REVIEW OF SYSTEMS: Could not be obtained as the patient is unable to give me relevant data. PHYSICAL EXAM: Height is 5 feet 5 inches, weight 130 pounds, temperature 98, heart rate 72, blood pressure 152/74, respiratory rate is 20, oxygen saturation 95% on 2 L. Sclerae anicteric. Oropharynx is pink without erythema. Carotids are 2+ without bruits. JVD is normal. Thyroid is normal. Cardiac Exam: S1, S2 , slightly irregular. No obvious murmurs, rubs, or gallops. Lungs are clear to auscultation bilaterally. There is slight dullness to percussion in the posterior base. Abdomen is soft, nontender, nondistended with normoactive bowel sounds. Extremities show minimal edema. She has 2+ pulses throughout. The patient is awake, but not oriented. It is difficult to do a neuro exam on the patient. DIAGNOSTIC STUDIES/LAB DATA: White count 13.4, hemoglobin 9, hematocrit 28, platelet count 650. Chemistries: Sodium 131, BUN 12, creatinine 0.6. CRP is markedly elevated at 221. BNP is elevated at greater than 1300. TSH is normal at 0.81. An echocardiogram done this past weekend shows normal LV size and systolic function, [id number] aortic stenosis, moderate tricuspid regurgitation. No evidence of pulmonary hypertension. IMPRESSION AND PLAN: This patient is an 89-year-old female, who was admitted to the hospital because of failure to thrive at home and some degree of congestive heart failure. The patient is now being evaluated for possible D and C because of this endometrial mass. Overall, I think the patient's cardiac status is starting to . I think she was in mild congestive heart failure both because of her medications and her poor heart rate control. Now that she is back on appropriate medications and is anticoagulated, I think the patient's cardiac status is now stabilizing. I did give the patient an extra dose of Lasix tonight to diurese her more. Her BUN and creatinine are stable, so I think more aggressive diuresis is appropriate. Overall, I do not think any other medication changes are necessary. I do not think any other cardiac testing is necessary. I think the patient is at mildly increased risk for cardiovascular complications given the proposed surgery. I will continue to follow the patient during her hospitalization. [id number]/[facility] #: [id number] KARIN
[2019-07-30] MEDS: traMADol TAB* 50 MG PO PRN (20:18)
[2019-07-30] MEDS: Senna TAB 8.6 mg* TAB PO SCH (20:27)
[2019-07-31] MEDS: Escitalopram * 10 MG TAB PO SCH (08:57)
[2019-07-31] MEDS: Ferrous Sulfate TAB* 325 MG PO SCH (08:57)
[2019-07-31] MEDS: Cyanocobalamin TAB* 500 MCG PO SCH (08:57)
[2019-07-31] MEDS: Digoxin TAB* 0.125 MG PO SCH (08:57)
[2019-07-31] MEDS: Metoprolol Succinate XL TAB* 50 MG PO SCH ×2 (08:57→21:24)
[2019-07-31] MEDS: Amoxicillin/Clavulanate TAB* 500 MG PO SCH ×2 (08:57→21:24)
[2019-07-31] MEDS: Potassium Chlor TAB* 20 MEQ TAB.ER PO SCH ×2 (08:57→21:24)
[2019-07-31] MEDS: Furosemide IV* 10 MG/ML VIAL (40 MG) IV SCH (08:57)
[2019-07-31] MEDS: CMC:Rosuvastatin (NF) 5 MG TAB PO SCH (08:58)
[2019-07-31] MEDS: traMADol TAB* 50 MG PO PRN (16:20)
[2019-07-31] MEDS: Senna TAB 8.6 mg* TAB PO SCH (21:24)
[2019-08-01] MEDS: Furosemide IV* 10 MG/ML VIAL (40 MG) IV SCH ×2 (07:36→11:33)
[2019-08-01] MEDS: Escitalopram * 10 MG TAB PO SCH (07:36)
[2019-08-01] MEDS: Metoprolol Succinate XL TAB* 50 MG PO SCH ×2 (07:36→21:20)
[2019-08-01] MEDS: Amoxicillin/Clavulanate TAB* 500 MG PO SCH ×2 (07:36→21:20)
[2019-08-01] MEDS: Cyanocobalamin TAB* 500 MCG PO SCH (07:36)
[2019-08-01] MEDS: Digoxin TAB* 0.125 MG PO SCH (07:36)
[2019-08-01] MEDS: Potassium Chlor TAB* 20 MEQ TAB.ER PO SCH ×2 (07:36→21:20)
[2019-08-01] MEDS ORDERED: Lidocaine 2% PF * 5 ML VIAL ONE (14:24)
[2019-08-01] MEDS ORDERED: Propofol* 10 MG/ML 20 ML BTL ONE ×2 (14:24→15:10)
[2019-08-01] MEDS ORDERED: Naloxone* 0.4 MG/ML 1 ML VIAL IV PRN (14:42)
[2019-08-01] MEDS ORDERED: HYDROmorphone INJ1* 1 MG/ML SYRINGE IV PRN (14:42)
[2019-08-01] MEDS ORDERED: diPHENhydraMINE IV* 50 MG/ML 1 ml VIAL (BENADRYL) IV PRN (14:42)
[2019-08-01] MEDS: Senna TAB 8.6 mg* TAB PO SCH (21:20)
--- NOTE | 2019-08-02 01:19 | OP ---
CC: Mireya Finnegan MD * DATE OF OPERATION: 08/01/19 - ROOM #435 DATE OF : 34 SURGEON: Anand Hager MD. ANESTHESIA: Monitored anesthesia care PRE-OP DIAGNOSIS: Postmenopausal bleeding with a thickened endometrium on pelvic ultrasound POST-OP DIAGNOSIS: Postmenopausal bleeding with a thickened endometrium on pelvic ultrasound along with a necrotic cervix and vaginal atrophy and a small vaginal caliber. OPERATIVE PROCEDURE: Exam under anesthesia and a dilation and curettage. ESTIMATED BLOOD LOSS: Minimal. SPECIMEN SENT TO PATHOLOGY: Endometrial curettings and vaginal scrapping. FLUIDS: She received 100 cc of IV crystalloid fluid. URINE OUTPUT: Minimal and clear. FINDINGS: An exam under anesthesia revealed an atrophic external genitalia including labia majora and minora with no lesions with a normal clitoral mao and clitoris and an introitus. The vaginal opening was small about 2 to 3 cm in diameter and I was only able to perform a bimanual exam with index finger. DESCRIPTION OF PROCEDURE: On bimanual exam the patient was noted to have a prolapse uterus with the cervix just about 2-3 cm superior to the introitus. The cervix was noted to be necrotic and friable, not bleeding. The bleeding was coming from the internal cervical os, however this was scant and dark. There was induration at the left vaginal side wall with necrotic tissue attached to the vaginal side wall with induration of the parametrium, but no mass noted. The right parametrium was within normal limits. The uterus was in anteverted position. No adnexal masses were palpable. On rectovaginal exam, there is no mass palpable either. I then proceeded to insert a pediatric speculum into the patient's vagina; again the cervix was prolapsed. I was able to do an endometrial curetting. The specimen from the curettings were sent to Pathology. The cervix was very friable and appeared necrotic. I scraped the vaginal left side wall and sent those scrapings to Pathology as well. At this point all the instruments were removed from the patient's vagina. Sponge, lap, and needle counts were correct x2. She was then transferred to recovery room area in stable condition. [id number]/[facility] #: [id number] [facility]
[2019-08-02 05:55] LABS: ABS Eosinophils 0.2 10^3/ul (0-0.6); ABS Lymphocytes 1.2 10^3/ul (1.0-4.8); ABS Monocytes 0.8 10^3/ul (0-0.8); ABS Neutrophils 8.8 10^3/ul (1.5-7.7); Eosinophil % 1.5 %; Hematocrit 29 % (35-47); Hemoglobin 9.6 g/dL (12.0-16.0); Lymphocyte % 11.1 %; Mean Corpuscular HGB Conc 33 g/dL (31-36); Mean Corpuscular Hemoglobin 29 pg (27-31); Mean Corpuscular Volume 87 fL (80-97); Mean Platelet Volume 7.4 fL (7.4-10.4); Nucleated Red Blood Cells % 0.1; Platelet Count 560 10^3/uL (150-450); Red Blood Count 3.32 10^6 /uL (3.70-4.87); Red Cell Distribution Width 15 % (10-15)
[2019-08-02 06:14] LABS: C Reactive Protein 241.64 mg/L (<8.01); Magnesium 2.1 mg/dL (1.9-2.7)
[2019-08-02] MEDS: Furosemide IV* 10 MG/ML VIAL (40 MG) IV SCH (09:26)
[2019-08-02] MEDS: Cyanocobalamin TAB* 500 MCG PO SCH (09:27)
[2019-08-02] MEDS: Metoprolol Succinate XL TAB* 50 MG PO SCH ×2 (09:27→21:11)
[2019-08-02] MEDS: Acetaminophen TAB* 325 MG PO PRN (09:29)
[2019-08-02] MEDS: CMC:Rosuvastatin (NF) 5 MG TAB PO SCH (09:29)
[2019-08-02] MEDS: Escitalopram * 10 MG TAB PO SCH (09:29)
[2019-08-02] MEDS: Amoxicillin/Clavulanate TAB* 500 MG PO SCH ×2 (09:29→21:11)
[2019-08-02] MEDS: Potassium Chlor TAB* 20 MEQ TAB.ER PO SCH ×2 (09:30→21:10)
[2019-08-02] MEDS: Digoxin TAB* 0.125 MG PO SCH (09:30)
[2019-08-02] MEDS: Ferrous Sulfate TAB* 325 MG PO SCH (09:31)
--- NOTE | 2019-08-02 14:53 | PN ---
Progress Note - Progress Note Date of Service: 08/02/19 - Pulm f/u note Note: Pt seen and examined at bedside. Pt sitting up in chair, unable to provide history 2/2 dementia. Active Medications Generic Name Dose Route Start Last Admin Trade Name Freq PRN Reason Stop Dose Admin Acetaminophen 650 mg 07/13/19 17:04 08/02/19 09:29 Tylenol Tab* PO 650 mg Q4H PRN Administration MILD PAIN or TEMP > 100.4 Amoxicillin/Clavulanate Potassium 500 mg 07/29/19 21:00 08/02/19 09:29 Augmentin Tab* PO 500 mg BID TAVO Administration Cyanocobalamin 1,000 mcg 07/14/19 09:00 08/02/19 09:27 Vitamin B12 Tab* PO 1,000 mcg QAM TAVO Administration Digoxin 0.125 mg 07/22/19 09:00 08/02/19 09:30 Lanoxin Tab* PO 0.125 mg 0900 TAVO Administration Docusate Sodium 100 mg 07/13/19 17:24 Colace Cap* PO BID PRN CONSTIPATION Escitalopram Oxalate 15 mg 07/14/19 09:00 08/02/19 09:29 Lexapro * PO 15 mg DAILY TAVO Administration Ferrous Sulfate 325 mg 07/17/19 09:00 08/02/19 09:31 Ferrous Sulfate Tab* PO 325 mg EVERY OTHER DAY TAVO Administration Furosemide 40 mg 07/30/19 10:00 08/02/19 09:26 Lasix Iv* IV 40 mg DAILY TAVO Administration Magnesium Hydroxide 30 ml 07/13/19 17:23 Milk Of Magnesia Liq* PO Q6H PRN CONSTIPATION Metoprolol Succinate 75 mg 07/16/19 10:00 08/02/19 09:27 Toprol Xl Tab* PO 75 mg BID TAVO Administration Miscellaneous 1 ea 07/13/19 19:40 Ativan Pyxis Ochoa N/A .ATIVAN IV OCHOA PRN PYXIS OCHOA Potassium Chloride 20 meq 07/26/19 21:00 08/02/19 09:30 Klor Con Er Tab* PO 20 meq BID TAVO Administration Rosuvastatin Calcium 5 mg 07/15/19 09:00 08/02/19 09:29 Crestor (Nf) PO 5 mg [id number]@0900 TAVO Administration Protocol Senna 1 tab 07/13/19 21:00 08/01/19 21:20 Senokot 8.6 Mg Tab* PO 1 tab BEDTIME TAVO Administration Tramadol HCl 50 mg 07/27/19 20:45 07/31/19 16:20 Ultram* PO 50 mg Q4H PRN Administration PAIN - SEVERE Vital Signs Temp Pulse Resp BP Pulse Ox 97.6 F 89 18 100/62 100 08/02/19 11:24 08/02/19 11:24 08/02/19 11:24 08/02/19 11:24 08/02/19 11:24 O/E: Pt in NAD, sitting up in chair HEENT: PERRLA Lungs: Diminished at bases R>L CVS: s1, S2+ Abd: Soft, BS+ Ext: Normal ROM Skin: No rash Neuro: Unable to perform full neuro exam Laboratory Results - last 24 hr 08/02/19 08/02/19 08/02/19 05:19 05:19 05:19 WBC 11.0 H RBC 3.32 L Hgb 9.6 L Hct 29 L MCV 87 MCH 29 MCHC 33 RDW 15 Plt Count 560 H MPV 7.4 Neut % (Auto) 80.0 Lymph % (Auto) 11.1 [place] % (Auto) 7.0 Eos % (Auto) 1.5 Baso % (Auto) 0.4 Absolute Neuts (auto) 8.8 H Absolute Lymphs (auto) 1.2 Absolute Monos (auto) 0.8 Absolute Eos (auto) 0.2 Absolute Basos (auto) 0.0 Absolute Nucleated RBC 0.0 Nucleated RBC % 0.1 Magnesium 2.1 C-Reactive Protein 241.64 H B-Natriuretic Peptide 446 H CT chest- mod rt effusion and small lt effusion I/R: Pt is 89 y o f with h/o HTN, CVA, sick sinus syndrome, TIA, GERD, aflutter , afib, uterine polyp, affective disorder, depression, osteoarthritis, hyperlipidemai, DM type2 vertigo and h/o PR being evaluated for pleural effusion Pt had thoracentesis on 07/21/19 with removal of 250cc of dark yellow fluid No evidence of malignancy Lymphocyte predominant effusion however with transudative features Suspect likely fluid overload as cause for b/l transudative effusion She is on 2L O2 with no distress Do not see any need to rpt thoracentesis No pulm intervention for now
[2019-08-02] MEDS: traMADol TAB* 50 MG PO PRN (21:10)
[2019-08-02] MEDS: Senna TAB 8.6 mg* TAB PO SCH (21:10)
[2019-08-03] MEDS: Furosemide IV* 10 MG/ML VIAL (40 MG) IV SCH (09:11)
[2019-08-03] MEDS: Amoxicillin/Clavulanate TAB* 500 MG PO SCH (09:28)
[2019-08-03] MEDS: Cyanocobalamin TAB* 500 MCG PO SCH (09:28)
[2019-08-03] MEDS: Escitalopram * 10 MG TAB PO SCH (09:29)
[2019-08-03] MEDS: Digoxin TAB* 0.125 MG PO SCH (09:29)
[2019-08-03] MEDS: Metoprolol Succinate XL TAB* 50 MG PO SCH ×2 (09:29→19:14)
[2019-08-03] MEDS: Potassium Chlor TAB* 20 MEQ TAB.ER PO SCH ×2 (09:29→19:15)
[2019-08-03] MEDS ORDERED: Piperacillin/Tazobac ADVAN(*) 3.375 GM in NS 0.9% 100 ML* 100 ML IVPB ONE (10:03)
--- NOTE | 2019-08-03 10:03 | PN ---
Subjective - Subjective Reason for Note: Progress Note History: She is only rousable for moments before falling asleep again. She is unable to communicate her situation. According to her nurse, this is a marked change. Active Problems: Active Problems Altered mental state (Acute) R41.82 Aortic stenosis (Acute) I35.0 Atrial fibrillation with RVR (Acute) I48.91 - Secondary to non compliance and mild dehydration. - Continue Metoprolol and Apixaban. CRP elevated (Acute) R79.82 Congestive heart failure, acute (Acute) I50.9 Leukocytosis (Acute) D72.829 Pleural effusion (Acute) J90 Pneumonia (Acute) J18.9 Urinary tract infection (Acute) - Abnormal UA - follow urine culture. - Start Ceftriaxone. Uterine mass (Acute) N85.8 Anemia (Chronic) D64.9 - Likely iron deficiency in the setting of uterine bleeding, but could also be anemia of chronic disease. - Check anemia w/u. DVT prophylaxis (Chronic) Z29.9 - Apixaban. Depression (Chronic) F32.9 - Patient does appear to have cognitive decline - dementia vs pseudodementia. - Will resume SSRI, check B12. TSH is normal. Essential hypertension (Chronic) I10 Failure to thrive (Chronic) [id number] - As per records, patient weighed 138lbs in 2017, now down to 101lbs. - Check prealbumin. - Also concerned for malignancy - check CT abd/pelvis. Full code status (Chronic) Z78.9 History of CVA (cerebrovascular accident) (Chronic) Z86.73 Physical deconditioning (Chronic) R53.81 - PT/OT evaluation. - Will likely need SNF. Severe protein-calorie malnutrition (Chronic) E43 - Chronic severe protein calorie malnutrition as evidenced by temporal muscle wasting, inadequate oral intake, weight loss, underweight - BMI 16.8. - Dietitian input appreciated - continue nutritional supplementals. Type 2 diabetes mellitus (Chronic) Current Medications: Current Medications Acetaminophen (Tylenol Tab*) 650 mg PO Q4H PRN PRN Reason: MILD PAIN or TEMP > 100.4 Last Admin: 08/02/19 09:29 Dose: 650 mg Amoxicillin/Clavulanate Potassium (Augmentin Tab*) 500 mg PO BID TAVO Last Admin: 08/03/19 09:28 Dose: Not Given Cyanocobalamin (Vitamin B12 Tab*) 1,000 mcg PO QAM REPLACED BY [facility] Last Admin: 08/03/19 09:28 Dose: Not Given Digoxin (Lanoxin Tab*) 0.125 mg PO 0900 REPLACED BY [facility] Last Admin: 08/03/19 09:29 Dose: Not Given Docusate Sodium (Colace Cap*) 100 mg PO BID PRN PRN Reason: CONSTIPATION Last Admin: 08/02/19 21:10 Dose: 100 mg Escitalopram Oxalate (Lexapro *) 15 mg PO DAILY REPLACED BY [facility] Last Admin: 08/03/19 09:29 Dose: Not Given Ferrous Sulfate (Ferrous Sulfate Tab*) 325 mg PO EVERY OTHER DAY REPLACED BY [facility] Last Admin: 08/02/19 09:31 Dose: 325 mg Furosemide (Lasix Iv*) 40 mg IV DAILY REPLACED BY [facility] Last Admin: 08/03/19 09:11 Dose: 40 mg Magnesium Hydroxide (Milk Of Magnesia Liq*) 30 ml PO Q6H PRN PRN Reason: CONSTIPATION Metoprolol Succinate (Toprol Xl Tab*) 75 mg PO BID REPLACED BY [facility] Last Admin: 08/03/19 09:29 Dose: Not Given Miscellaneous (Ativan Pyxis Ochoa) 1 ea N/A .ATIVAN IV OCHOA PRN PRN Reason: PYXIS OCHOA Potassium Chloride (Klor Con Er Tab*) 20 meq PO BID REPLACED BY [facility] Last Admin: 08/03/19 09:29 Dose: Not Given Rosuvastatin Calcium (Crestor (Nf)) 5 mg PO MoWeFr@0900 REPLACED BY [facility]; Protocol Last Admin: 08/02/19 09:29 Dose: 5 mg Senna (Senokot 8.6 Mg Tab*) 1 tab PO BEDTIME REPLACED BY [facility] Last Admin: 08/02/19 21:10 Dose: 1 tab Tramadol HCl (Ultram*) 50 mg PO Q4H PRN PRN Reason: PAIN - SEVERE Last Admin: 08/02/19 21:10 Dose: 50 mg Home Medications: Home Medications Medication Instructions Recorded Confirmed Type Warfarin TAB(*) [Coumadin TAB(*)] 5 mg PO SEE INSTRUCTIONS 09/23/13 10/18/16 History Digoxin [Digitek] 125 mcg PO DAILY 08/23/16 10/18/16 History Escitalopram Oxalate [Lexapro 10 10 mg PO DAILY 08/23/16 10/18/16 History mg] Acetaminophen [Acetaminophen Extra 500 mg PO BID PRN 10/17/16 10/17/16 History Stren] Cholecalciferol TAB* [Vitamin D 2,000 units PO DAILY 10/17/16 10/18/16 History TAB*] Clopidogrel TAB* [Plavix TAB*] 75 mg PO DAILY 10/17/16 10/18/16 History Cyanocobalamin (Vitamin B-12) 1,000 mcg SL QAM 10/17/16 10/18/16 History [Vitamin B-12] Glucosamine Sulfate 1,000 mg PO BID 10/17/16 10/18/16 History Hydrochlorothiazide TAB* 25 mg PO DAILY 10/17/16 10/18/16 History [Hydrodiuril TAB*] Rosuvastatin Calcium [Crestor] 5 mg PO SEE INSTRUCTIONS 10/17/16 10/18/16 History Ubidecarenone [Coenzyme Q10] 200 mg PO DAILY 10/17/16 10/18/16 History raNITIdine HCl [Zantac] 75 mg PO DAILY PRN 10/17/16 10/18/16 History Ascorbic Acid [Vitamin C/Aleisha Hips 1,000 mg PO DAILY 10/18/16 10/18/16 History Tr] Turmeric (Curcuma Longa) [Turmeric] 500 mg PO DAILY 10/18/16 10/18/16 History Acetaminophen TAB* [Tylenol TAB*] 650 mg PO Q4H PRN #0 tab 10/19/16 Rx Al Hydrox/Mg Hydrox/Simet LIQ* 30 ml PO Q6H PRN #0 udc 10/19/16 Rx [Maalox Plus*] Cephalexin CAP* [Keflex CAP*] 500 mg PO TID #10 cap 10/19/16 Rx Metoprolol Succinate XL TAB* 50 mg PO BEDTIME #90 tab.xl 10/19/16 Rx [Toprol XL TAB*] Allergies: Allergies Allergy/AdvReac Type Severity Reaction Status Date / Time aspirin Allergy GI Upset Verified 06/26/18 14:12 atorvastatin [From Lipitor] Allergy Muscle Ache Verified 06/26/18 14:12 Objective - Vital Signs Vital Signs: Vital Signs 08/02/19 08/02/19 08/02/19 11:24 15:37 16:00 Temperature 97.6 F 97.5 F Pulse Rate 89 76 Respiratory 18 16 Rate Blood Pressure 100/62 128/70 (mmHg) O2 Sat by Pulse 100 99 96 Oximetry 08/02/19 08/02/19 08/02/19 19:15 20:00 21:10 Temperature 97.1 F Pulse Rate 75 Respiratory 16 16 16 Rate Blood Pressure 146/54 (mmHg) O2 Sat by Pulse 99 Oximetry 08/02/19 08/02/19 08/03/19 23:10 23:15 00:00 Temperature 97.1 F Pulse Rate 68 Respiratory 16 16 Rate Blood Pressure 161/65 (mmHg) O2 Sat by Pulse 100 100 Oximetry 08/03/19 08/03/19 08/03/19 03:15 05:31 07:32 Temperature 98.1 F 96.9 F Pulse Rate 85 66 Respiratory 16 16 Rate Blood Pressure 151/62 129/113 (mmHg) O2 Sat by Pulse 99 100 99 Oximetry 08/03/19 09:01 Temperature Pulse Rate Respiratory Rate Blood Pressure 137/80 (mmHg) O2 Sat by Pulse Oximetry - Intake and Output Intake and Output: Intake & Output 07/31/19 08/01/19 08/02/19 08/03/19 11:59 11:59 11:59 11:59 Intake Total 15 0 270 400 Output Total 1350 900 850 Balance 15 -1350 -630 -450 Weight 131 lb 1.6 oz 119 lb 126 lb 4.8 oz 122 lb 9.6 oz Intake: Oral 15 0 270 400 Output: [place] 1350 900 850 Other: Estimated Void Small Medium Estimated Stool Amount Medium ADLs: Meal Record Start: 07/13/19 18: 13 Freq: DAILY@0900,1400,1800 Status: Active Protocol: Created 07/13/19 18:13 System (Rec: 07/13/19 18:13 System TELE-C15) Document 07/14/19 09:00 QCZ2712 (Rec: 07/14/19 11:10 FVH0688 TELE-C11) Document 07/14/19 14:00 TIC0753 (Rec: 07/14/19 14:25 VOR3290 TELE-C11) Document 07/14/19 18:00 DUY8404 (Rec: 07/14/19 18:01 TZT0167 TELE-C01) Document 07/15/19 09:00 JNS6932 (Rec: 07/15/19 09:11 UJI8604 TELE-C09) Document 07/15/19 13:17 CMU6763 (Rec: 07/15/19 13:17 RVQ1216 TELE-C09) Document 07/15/19 18:00 VNW1421 (Rec: 07/15/19 18:27 ZAP0639 TELE-C06) Document 07/16/19 08:45 ESY2048 (Rec: 07/16/19 08:45 RAE3084 TELE-C09) Document 07/16/19 13:54 KST6947 (Rec: 07/16/19 13:54 JOL6349 TELE-C11) Document 07/16/19 17:42 PCH9883 (Rec: 07/16/19 17:43 BYE9970 TELE-C11) Document 07/17/19 09:00 RBT1231 (Rec: 07/17/19 09:34 OBI2764 TELE-C11) Document 07/17/19 13:33 UZU8121 (Rec: 07/17/19 13:33 ODI2884 TELE-C01) Document 07/17/19 17:54 WAO8301 (Rec: 07/17/19 17:54 LOX1550 TELE-C09) Document 07/18/19 09:00 QKV4049 (Rec: 07/18/19 09:10 FCP8530 TELE-C11) Document 07/18/19 13:52 LBZ4176 (Rec: 07/18/19 13:53 JWF1123 TELE-C11) Document 07/18/19 18:00 DLC7727 (Rec: 07/18/19 19:07 LUI2092 TELE-C10) Document 07/19/19 09:00 BBN6293 (Rec: 07/19/19 10:22 DBW2107 TELE-C10) Document 07/19/19 14:00 SVI1339 (Rec: 07/19/19 14:29 LJP7781 TELE-C10) Document 07/19/19 18:00 ZWM9496 (Rec: 07/19/19 19:47 KMI2632 TELE-M18) Document 07/20/19 09:00 XVS9426 (Rec: 07/20/19 09:12 VLB7183 TELE-C01) Document 07/20/19 14:00 RAQ3852 (Rec: 07/20/19 16:08 EJP9434 TELE-C01) Document 07/20/19 18:00 JKV6745 (Rec: 07/20/19 18:38 CGS4058 TELE-C01) Document 07/21/19 09:00 XGA2415 (Rec: 07/21/19 09:50 IGI2835 TELE-C01) Document 07/21/19 14:00 KKL9468 (Rec: 07/21/19 14:34 RML0596 TELE-C01) Document 07/21/19 18:00 SDT4974 (Rec: 07/21/19 21:46 OFE6059 TELE-C06) Document 07/22/19 09:00 GLI8957 (Rec: 07/22/19 10:26 UNZ6298 TELE-C09) Document 07/22/19 14:00 FKF6803 (Rec: 07/22/19 14:05 XOH6643 TELE-C09) Document 07/22/19 18:00 HXD8749 (Rec: 07/22/19 20:10 RBI5151 TELE-C07) Document 07/23/19 09:00 AFC3432 (Rec: 07/23/19 11:09 ZKI0207 TELE-C07) Document 07/23/19 13:40 UYK0175 (Rec: 07/23/19 13:40 TFP9766 TELE-C07) Document 07/23/19 18:00 BDL5386 (Rec: 07/23/19 20:37 AEJ4538 TELE-C03) Document 07/24/19 09:00 OIV4236 (Rec: 07/24/19 10:45 UAI4746 TELE-C07) Document 07/24/19 14:00 DBC0801 (Rec: 07/24/19 14:26 WOC0629 TELE-C01) Document 07/24/19 17:28 PUP1405 (Rec: 07/24/19 17:28 DTF0259 TELE-C03) Document 07/25/19 09:00 SWJ5575 (Rec: 07/25/19 16:06 ZHQ6095 TELE-C03) Document 07/25/19 14:00 NSK2003 (Rec: 07/25/19 18:24 ZUO8253 TELE-C01) Document 07/25/19 18:00 RRJ5236 (Rec: 07/25/19 18:26 IJV8266 TELE-C01) Document 07/26/19 09:00 KDQ7078 (Rec: 07/26/19 10:57 KJV0974 TELE-C11) Document 07/26/19 14:00 QSR7595 (Rec: 07/26/19 18:10 JFN3756 TELE-C01) Document 07/26/19 18:00 ZHH8024 (Rec: 07/26/19 18:11 IEO8475 TELE-C01) Document 07/27/19 09:00 DVM1498 (Rec: 07/27/19 11:46 OHV7630 TELE-C08) Document 07/27/19 14:00 QZK6367 (Rec: 07/27/19 14:32 LIX2206 TELE-C01) Document 07/27/19 18:00 XJU2008 (Rec: 07/27/19 18:50 BTL2953 TELE-C07) Document 07/28/19 09:00 GCG7611 (Rec: 07/28/19 10:51 ZLH6846 MED-M26) Document 07/28/19 14:00 YRG1136 (Rec: 07/28/19 15:06 GEL8331 TELE-C09) Document 07/28/19 18:00 SNB6001 (Rec: 07/28/19 18:11 JEO3959 MED-M26) Document 07/29/19 09:00 YHU2603 (Rec: 07/29/19 14:05 GBB4241 TELE-C01) Document 07/29/19 14:00 OQB4143 (Rec: 07/29/19 14:05 HFB7118 TELE-C01) Document 07/29/19 18:00 QNO3286 (Rec: 07/29/19 18:29 ROA5935 TELE-C07) Document 07/30/19 09:00 FTU1746 (Rec: 07/30/19 09:37 GSK9444 TELE-C11) Document 07/30/19 14:00 SAP5773 (Rec: 07/30/19 14:16 DXP7776 TELE-C11) Document 07/30/19 17:21 AVL7060 (Rec: 07/30/19 17:22 OKT2892 TELE-C11) Document 07/31/19 08:45 JBT3274 (Rec: 07/31/19 08:45 DWZ8413 TELE-C09) Document 07/31/19 14:00 ETX4995 (Rec: 07/31/19 14:07 MVT8693 TELE-C09) Document 07/31/19 18:00 XIS1647 (Rec: 07/31/19 18:28 KAP2617 MED-M27) Document 08/01/19 08:45 MFF5386 (Rec: 08/01/19 08:45 BZD6818 TELE-C07) Document 08/01/19 13:19 KNC0902 (Rec: 08/01/19 13:19 UCQ5242 TELE-C09) Document 08/01/19 18:00 AGN5830 (Rec: 08/01/19 23:05 WXV4564 TELE-C13) Document 08/02/19 09:00 PSE5674 (Rec: 08/02/19 15:16 KPI4029 TELE-C09) Document 08/02/19 14:00 ABV1047 (Rec: 08/02/19 15:18 HNL7130 TELE-C09) Document 08/02/19 18:00 IIQ4857 (Rec: 08/02/19 19:58 UQR0359 TELE-C11) Intake and Output Start: 07/13/19 18: 13 Freq: DAILY@0600,1400,2200 Status: Active Protocol: Created 07/13/19 18:13 System (Rec: 07/13/19 18:13 System TELE-C15) Document 07/14/19 14:05 VPN0115 (Rec: 07/14/19 14:06 UGJ7936 TELE-M06) Document 07/14/19 21:43 ZDP1928 (Rec: 07/14/19 21:45 JZI4271 TELE-C07) Document 07/15/19 05:58 OKO6235 (Rec: 07/15/19 06:01 YPR8864 TELE-C07) Document 07/15/19 13:32 WXT4943 (Rec: 07/15/19 13:32 NHK3080 TELE-C09) Document 07/15/19 21:28 AFW7147 (Rec: 07/15/19 21:29 LML5324 TELE-C05) Document 07/16/19 06:00 FOC1601 (Rec: 07/16/19 06:20 ZLQ3417 TELE-C09) Document 07/16/19 13:55 MDA2942 (Rec: 07/16/19 13:55 WOX0734 TELE-C11) Document 07/16/19 22:00 LCG9542 (Rec: 07/16/19 22:18 KMJ7307 TELE-C10) Document 07/17/19 06:00 UMR5852 (Rec: 07/17/19 06:50 CNZ6685 TELE-M06) Document 07/17/19 09:34 GGW8296 (Rec: 07/17/19 09:34 NAJ5485 TELE-C11) Document 07/17/19 14:00 SLE6256 (Rec: 07/17/19 14:12 SSB5572 TELE-C10) Document 07/17/19 22:00 KGG3403 (Rec: 07/18/19 00:03 APM9665 TELE-C06) Document 07/18/19 06:00 VXW9165 (Rec: 07/18/19 06:21 EDL2890 TELE-C06) Document 07/18/19 13:52 XNO6791 (Rec: 07/18/19 13:53 IAM4969 TELE-C11) Document 07/18/19 22:00 GLO9606 (Rec: 07/18/19 22:37 IXF5607 TELE-C10) Document 07/19/19 05:51 NIF8105 (Rec: 07/19/19 05:52 YAW9669 TELE-C05) Document 07/19/19 10:00 MJL6503 (Rec: 07/19/19 20:06 OKP1480 TELE-C11) Document 07/19/19 14:00 EEA2832 (Rec: 07/19/19 14:29 SHW2705 TELE-C10) Document 07/19/19 22:00 VTE9113 (Rec: 07/19/19 22:29 UWG1935 TELE-C05) Document 07/20/19 05:53 UCZ0893 (Rec: 07/20/19 05:54 SCG5720 TELE-C13) Document 07/20/19 14:00 XPL6413 (Rec: 07/20/19 16:07 CAH4969 TELE-C05) Document 07/20/19 22:00 UFW3107 (Rec: 07/20/19 22:50 NIA4170 TELE-C09) Document 07/21/19 06:00 JLM9546 (Rec: 07/21/19 06:40 NVJ3155 TELE-C10) Document 07/21/19 12:46 KJZ8641 (Rec: 07/21/19 12:46 ZUV1308 TELE-C10) Document 07/21/19 22:00 RDX6223 (Rec: 07/21/19 22:30 GDH4009 TELE-C06) Document 07/21/19 22:15 FYD7789 (Rec: 07/21/19 23:06 TUJ7105 TELE-C10) Document 07/22/19 06:00 CHP9828 (Rec: 07/22/19 06:22 KIW7105 TELE-C06) Document 07/22/19 14:00 BKW6251 (Rec: 07/22/19 14:43 GFV9806 TELE-C09) Document 07/22/19 22:00 GZP3789 (Rec: 07/22/19 22:22 TXN5146 TELE-C07) Document 07/23/19 06:00 HNS8930 (Rec: 07/23/19 06:20 JTY6302 TELE-C07) Document 07/23/19 14:00 DAR2682 (Rec: 07/23/19 14:09 YKW9465 TELE-C13) Document 07/23/19 22:00 EJA6786 (Rec: 07/23/19 22:20 DVQ2309 TELE-C03) Document 07/24/19 05:34 EGJ9656 (Rec: 07/24/19 05:34 IYM2736 TELE-C06) Document 07/24/19 10:50 EHE1279 (Rec: 07/24/19 10:50 SJN0762 TELE-C07) Document 07/24/19 14:00 BBU7340 (Rec: 07/24/19 14:26 YWL3178 TELE-C01) Document 07/24/19 21:27 DYJ2744 (Rec: 07/24/19 21:29 RKM3307 TELE-C08) Document 07/25/19 05:30 CUK0873 (Rec: 07/25/19 05:34 ATH0615 TELE-C06) Document 07/25/19 14:00 VHL9252 (Rec: 07/25/19 18:25 FVK9034 TELE-C01) Document 07/25/19 22:00 TCV0125 (Rec: 07/26/19 01:00 GLG7921 TELE-C33) Document 07/26/19 06:00 DIV8209 (Rec: 07/26/19 06:32 JHV0597 TELE-C11) Document 07/26/19 14:00 NKN3226 (Rec: 07/26/19 18:38 BPD1994 TELE-C01) Document 07/26/19 22:00 JEP5603 (Rec: 07/27/19 06:52 LRG6516 TELE-C10) Document 07/27/19 06:00 TOD1040 (Rec: 07/27/19 06:57 EDN8787 TELE-C10) Document 07/27/19 14:00 VYP6539 (Rec: 07/27/19 15:53 IXD3431 TELE-C08) Document 07/27/19 22:00 YCC6912 (Rec: 07/27/19 22:19 RHH8376 TELE-C07) Document 07/28/19 06:00 UGV8422 (Rec: 07/28/19 07:09 PUB5799 TELE-C07) Document 07/28/19 12:53 AWP9610 (Rec: 07/28/19 12:53 GUS2939 MED-M01) Document 07/28/19 22:00 LBY1380 (Rec: 07/28/19 22:24 ERD6299 TELE-C09) Document 07/29/19 06:00 OBH1130 (Rec: 07/29/19 06:45 LUE0993 TELE-C09) Document 07/29/19 14:00 WBY0737 (Rec: 07/29/19 14:52 MWZ8961 TELE-C01) Document 07/29/19 22:00 YVJ0793 (Rec: 07/29/19 22:16 GWA9494 TELE-C07) Document 07/30/19 05:07 WDE8343 (Rec: 07/30/19 05:08 NCU6173 TELE-C10) Document 07/30/19 14:00 BVU3410 (Rec: 07/30/19 14:34 DOT3162 TELE-C11) Document 07/30/19 22:00 TRT8914 (Rec: 07/31/19 00:47 XMS8080 TELE-C07) Document 07/31/19 06:00 EVZ7048 (Rec: 07/31/19 06:21 LTI7745 TELE-C07) Document 07/31/19 14:00 BGI1806 (Rec: 07/31/19 14:07 QNW9256 TELE-C09) Document 07/31/19 21:46 VGI6522 (Rec: 07/31/19 21:46 IOH4902 TELE-C05) Document 08/01/19 06:00 SDX4609 (Rec: 08/01/19 06:06 VZK8278 TELE-C33) Document 08/01/19 13:19 FPO5620 (Rec: 08/01/19 13:19 RUZ6732 TELE-C09) Document 08/01/19 22:00 GFH2109 (Rec: 08/02/19 01:13 IZP8354 TELE-C09) Document 08/02/19 06:00 FUK4992 (Rec: 08/02/19 06:32 TQP2186 TELE-C11) Document 08/02/19 14:00 QDQ2938 (Rec: 08/02/19 15:18 KFC4298 TELE-C09) Document 08/02/19 20:07 OXV1180 (Rec: 08/02/19 20:09 ZPG7744 TELE-C11) Document 08/03/19 06:00 LPH2414 (Rec: 08/03/19 06:24 OTX4128 TELE-C03) - Physical Exam General Physical Exam Comment: She is warm and well perfused, and not in acute distress. However, she is markedly somnolent. General: No Cyanosis, Yes Anemia, No Jaundice, No Clubbing Lungs and Chest: Yes: Chest Expansion Symetrica, Vessicular Breath Sounds. No: Chest Expansion Full - not taking deep breaths, Crackles, Wheezes, Respiratory Distress, Use of Accessory Muscles Heart Rate and Rhythm: Regular - pacemaker Additional Cardiovascular: Yes: Normal Heart Sounds. No: Heart Murmur, Pedal Edema Abdominal Exam: Yes: Soft, Abdominal Tenderness - suprapubic area and both lower quadrants, Bowel Sounds Present. No: Distention, Rigidity, Abdominal Mass , Guarding, Rebound Tenderness Assessment - Problem List Assessment: Patient Problems Altered mental state (Acute) Aortic stenosis (Acute) Atrial fibrillation with RVR (Acute) CRP elevated (Acute) Congestive heart failure, acute (Acute) Leukocytosis (Acute) Pleural effusion (Acute) Pneumonia (Acute) Urinary tract infection (Acute) Uterine mass (Acute) Anemia (Chronic) DVT prophylaxis (Chronic) Depression (Chronic) Essential hypertension (Chronic) Failure to thrive (Chronic) Full code status (Chronic) History of CVA (cerebrovascular accident) (Chronic) Physical deconditioning (Chronic) Severe protein-calorie malnutrition (Chronic) Type 2 diabetes mellitus (Chronic) Plan: Acute medical problems: Uterine mass (Acute) She is 2 days post gynecological evaluation with D and C. She had necrotic tissue on her cervix and attached to her vaginal wall and induration of her parametrium. Pathological report is not yet completed. She remains tender in this area. She has a positive CA 125 (129 Normal < 46). This appears to be endometrial carcinoma or another gynecological malignancy, with necrotic tissue and secondary infection. I think she requires a total hysterectomy - but this will be decided when we have a better tissue diagnosis. However, Clinically she is deteriorating and the risk of operation will increase with time, not decrease as we are not in control of the uterine process. I will stop augmentin and start her on zosyn - to cover anerobes. Altered mental state (Acute) This is likely delirium. I will check her labs to ensure she hasn't hemorrhaged and check her WBC. Congestive heart failure, acute (Acute)Aortic stenosis (Acute) Pleural effusion (Acute) Her BNP is improved - she has no physical signs of CHF today. Atrial fibrillation with RVR (Acute) not a problem today Leukocytosis (Acute) I will recheck Comorbidities: Anemia (Chronic) I will recheck Type 2 diabetes mellitus (Chronic) This is controlled Physical deconditioning (Chronic) Severe protein-calorie malnutrition (Chronic) Failure to thrive (Chronic) This is ongoing Secondary diagnoses DVT prophylaxis (Chronic) Depression (Chronic) Essential hypertension (Chronic) DNR History of CVA (cerebrovascular accident) (Chronic) Phone call to Nicholas Haywood (nephew/health care proxy). She looked good yesterday - ate a burger. Today she is clearly worse. She is DNR. He agrees to restart IV antibacterials.
[2019-08-03] MEDS ORDERED: D5W 1/2 NS KCl 20 Meq 1000 ML* 1,000 ML IV SCH (11:00)
[2019-08-03] MEDS ORDERED: Zosyn per Pharmacy* NOTE FOLLOW UP SCH (11:00)
[2019-08-03] MEDS: ZOSYN 3.375 GM Q8H per EXTENDED INFUSION IVPB SCH ×4 (16:57→23:26)
[2019-08-03] MEDS: Senna TAB 8.6 mg* TAB PO SCH (19:15)
[2019-08-04] MEDS: Acetaminophen TAB* 325 MG PO PRN ×2 (04:44→15:24)
[2019-08-04 06:08] LABS: ABS Basophils 0.1 10^3/ul (0-0.2); ABS Eosinophils 0.5 10^3/ul (0-0.6); ABS Lymphocytes 0.7 10^3/ul (1.0-4.8); ABS Monocytes 0.4 10^3/ul (0-0.8); ABS Neutrophils 6.9 10^3/ul (1.5-7.7); Hematocrit 30 % (35-47); Hemoglobin 9.9 g/dL (12.0-16.0); Lymphocyte % 8.2 %; Mean Corpuscular HGB Conc 33 g/dL (31-36); Mean Corpuscular Hemoglobin 29 pg (27-31); Mean Corpuscular Volume 86 fL (80-97); Mean Platelet Volume 7.6 fL (7.4-10.4); Platelet Count 522 10^3/uL (150-450); Red Blood Count 3.44 10^6 /uL (3.70-4.87); Red Cell Distribution Width 15 % (10-15); White Blood Count 8.6 10^3/uL (3.5-10.8)
[2019-08-04 06:20] LABS: BUN/Creatinine Ratio 22.9 (8-20); C Reactive Protein 184.8 mg/L (<8.01); EGFR African American 95.8 (>60); EGFR Non-African American 79.2 (>60); Potassium 3.4 mmol/L (3.5-5.0)
[2019-08-04] MEDS: ZOSYN 3.375 GM Q8H per EXTENDED INFUSION IVPB SCH ×6 (07:29→23:14)
--- NOTE | 2019-08-04 10:16 | PN ---
Subjective - Subjective Reason for Note: Progress Note History: She remains weak and not forthcoming when asked questions. She has tenderness in her lower abdomen. She is rousable, but not conversational. Active Problems: Active Problems Altered mental state (Acute) R41.82 Aortic stenosis (Acute) I35.0 Atrial fibrillation with RVR (Acute) I48.91 - Secondary to non compliance and mild dehydration. - Continue Metoprolol and Apixaban. CRP elevated (Acute) R79.82 Congestive heart failure, acute (Acute) I50.9 Pleural effusion (Acute) J90 Uterine mass (Acute) N85.8 Anemia (Chronic) D64.9 - Likely iron deficiency in the setting of uterine bleeding, but could also be anemia of chronic disease. - Check anemia w/u. DVT prophylaxis (Chronic) Z29.9 - Apixaban. Depression (Chronic) F32.9 - Patient does appear to have cognitive decline - dementia vs pseudodementia. - Will resume SSRI, check B12. TSH is normal. Essential hypertension (Chronic) I10 Failure to thrive (Chronic) QBI1805 - As per records, patient weighed 138lbs in 2017, now down to 101lbs. - Check prealbumin. - Also concerned for malignancy - check CT abd/pelvis. History of CVA (cerebrovascular accident) (Chronic) Z86.73 Physical deconditioning (Chronic) R53.81 - PT/OT evaluation. - Will likely need SNF. Severe protein-calorie malnutrition (Chronic) E43 - Chronic severe protein calorie malnutrition as evidenced by temporal muscle wasting, inadequate oral intake, weight loss, underweight - BMI 16.8. - Dietitian input appreciated - continue nutritional supplementals. Type 2 diabetes mellitus (Chronic) Current Medications: Current Medications Acetaminophen (Tylenol Tab*) 650 mg PO Q4H PRN PRN Reason: MILD PAIN or TEMP > 100.4 Last Admin: 08/04/19 04:44 Dose: 650 mg Cyanocobalamin (Vitamin B12 Tab*) 1,000 mcg PO QAM [facility] Last Admin: 08/03/19 09:28 Dose: Not Given Digoxin (Lanoxin Tab*) 0.125 mg PO 0900 [facility] Last Admin: 08/03/19 09:29 Dose: Not Given Docusate Sodium (Colace Cap*) 100 mg PO BID PRN PRN Reason: CONSTIPATION Last Admin: 08/02/19 21:10 Dose: 100 mg Escitalopram Oxalate (Lexapro *) 15 mg PO DAILY [facility] Last Admin: 08/03/19 09:29 Dose: Not Given Ferrous Sulfate (Ferrous Sulfate Tab*) 325 mg PO EVERY OTHER DAY [facility] Last Admin: 08/02/19 09:31 Dose: 325 mg Potassium Chloride/Dextrose (D5w 1/2 Ns Kcl 20 Meq 1000 Ml*) 1,000 mls @ 50 mls /hr IV PER RATE [facility] Last Admin: 08/03/19 11:13 Dose: 50 mls/hr Piperacillin Sod/Tazobactam (Sod 3.375 gm/ Sodium Chloride) 100 mls @ 25 mls/ hr IVPB Q8H [facility] Last Admin: 08/04/19 07:29 Dose: 25 mls/hr Magnesium Hydroxide (Milk Of Magnesia Liq*) 30 ml PO Q6H PRN PRN Reason: CONSTIPATION Metoprolol Succinate (Toprol Xl Tab*) 75 mg PO BID [facility] Last Admin: 08/03/19 19:14 Dose: Not Given Miscellaneous (Ativan Pyxis Ochoa) 1 ea N/A .ATIVAN IV OCHOA PRN PRN Reason: PYXIS OCHOA Pharmacy Consult (Zosyn Per Pharmacy*) 1 note FOLLOW UP .ZOSYN PER PHARMACY [facility] Potassium Chloride (Klor Con Er Tab*) 20 meq PO BID [facility] Last Admin: 08/03/19 19:15 Dose: Not Given Rosuvastatin Calcium (Crestor (Nf)) 5 mg PO MoWeFr@0900 [facility]; Protocol Last Admin: 08/02/19 09:29 Dose: 5 mg Senna (Senokot 8.6 Mg Tab*) 1 tab PO BEDTIME [facility] Last Admin: 08/03/19 19:15 Dose: Not Given Home Medications: Home Medications Medication Instructions Recorded Confirmed Type Warfarin TAB(*) [Coumadin TAB(*)] 5 mg PO SEE INSTRUCTIONS 09/23/13 10/18/16 History Digoxin [Digitek] 125 mcg PO DAILY 08/23/16 10/18/16 History Escitalopram Oxalate [Lexapro 10 10 mg PO DAILY 08/23/16 10/18/16 History mg] Acetaminophen [Acetaminophen Extra 500 mg PO BID PRN 10/17/16 10/17/16 History Stren] Cholecalciferol TAB* [Vitamin D 2,000 units PO DAILY 10/17/16 10/18/16 History TAB*] Clopidogrel TAB* [Plavix TAB*] 75 mg PO DAILY 10/17/16 10/18/16 History Cyanocobalamin (Vitamin B-12) 1,000 mcg SL QAM 10/17/16 10/18/16 History [Vitamin B-12] Glucosamine Sulfate 1,000 mg PO BID 10/17/16 10/18/16 History Hydrochlorothiazide TAB* 25 mg PO DAILY 10/17/16 10/18/16 History [Hydrodiuril TAB*] Rosuvastatin Calcium [Crestor] 5 mg PO SEE INSTRUCTIONS 10/17/16 10/18/16 History Ubidecarenone [Coenzyme Q10] 200 mg PO DAILY 10/17/16 10/18/16 History raNITIdine HCl [Zantac] 75 mg PO DAILY PRN 10/17/16 10/18/16 History Ascorbic Acid [Vitamin C/Aleisha Hips 1,000 mg PO DAILY 10/18/16 10/18/16 History Tr] Turmeric (Curcuma Longa) [Turmeric] 500 mg PO DAILY 10/18/16 10/18/16 History Acetaminophen TAB* [Tylenol TAB*] 650 mg PO Q4H PRN #0 tab 10/19/16 Rx Al Hydrox/Mg Hydrox/Simet LIQ* 30 ml PO Q6H PRN #0 udc 10/19/16 Rx [Maalox Plus*] Cephalexin CAP* [Keflex CAP*] 500 mg PO TID #10 cap 10/19/16 Rx Metoprolol Succinate XL TAB* 50 mg PO BEDTIME #90 tab.xl 10/19/16 Rx [Toprol XL TAB*] Allergies: Allergies Allergy/AdvReac Type Severity Reaction Status Date / Time aspirin Allergy GI Upset Verified 06/26/18 14:12 atorvastatin [From Lipitor] Allergy Muscle Ache Verified 06/26/18 14:12 Objective - Vital Signs Vital Signs: Vital Signs 08/03/19 08/03/19 08/03/19 11:15 15:04 16:00 Temperature 99.3 F 97.3 F Pulse Rate 63 66 Respiratory 22 16 Rate Blood Pressure 143/65 139/54 (mmHg) O2 Sat by Pulse 98 98 98 Oximetry 08/03/19 08/03/19 08/03/19 19:15 19:21 23:19 Temperature 97.5 F 98.2 F Pulse Rate 78 66 Respiratory 16 16 16 Rate Blood Pressure 137/61 129/50 (mmHg) O2 Sat by Pulse 99 100 Oximetry 08/04/19 08/04/19 08/04/19 00:00 03:15 03:57 Temperature 99 F Pulse Rate 73 Respiratory 16 Rate Blood Pressure 136/59 (mmHg) O2 Sat by Pulse 100 100 100 Oximetry 08/04/19 08/04/19 07:20 07:33 Temperature 96.6 F Pulse Rate 76 Respiratory 16 12 Rate Blood Pressure 133/49 (mmHg) O2 Sat by Pulse 98 Oximetry - Intake and Output Intake and Output: Intake & Output 08/01/19 08/02/19 08/03/19 08/04/19 11:59 11:59 11:59 11:59 Intake Total 0 937 829 4828 Output Total 1350 135 804 1926 Balance -1350 -630 -440 -306 Weight 119 lb 126 lb 4.8 oz 122 lb 9.6 oz 129 lb 12.8 oz Intake: IV Fluids 475 D5W 1/2 NS 20 meq KCL 445 Zosyn 30 IVPB 309 Zosyn 309 Oral 0 270 410 260 Output: [place] 1350 512 396 0880 Other: Estimated Void Medium ADLs: Meal Record Start: 07/13/19 18: 13 Freq: DAILY@0900,1400,1800 Status: Active Protocol: Created 07/13/19 18:13 System (Rec: 07/13/19 18:13 System TELE-C15) Document 07/14/19 09:00 GPF7817 (Rec: 07/14/19 11:10 YVT6635 TELE-C11) Document 07/14/19 14:00 RPH9795 (Rec: 07/14/19 14:25 ASN8892 TELE-C11) Document 07/14/19 18:00 SWJ4806 (Rec: 07/14/19 18:01 FBV2982 TELE-C01) Document 07/15/19 09:00 QVM7824 (Rec: 07/15/19 09:11 QUB0520 TELE-C09) Document 07/15/19 13:17 KOD5758 (Rec: 07/15/19 13:17 EGU5604 TELE-C09) Document 07/15/19 18:00 FSL8033 (Rec: 07/15/19 18:27 QWY9191 TELE-C06) Document 07/16/19 08:45 WRA6013 (Rec: 07/16/19 08:45 OFE1367 TELE-C09) Document 07/16/19 13:54 CYL6868 (Rec: 07/16/19 13:54 QHA7126 TELE-C11) Document 07/16/19 17:42 XZN5704 (Rec: 07/16/19 17:43 ZWG2915 TELE-C11) Document 07/17/19 09:00 NZX1292 (Rec: 07/17/19 09:34 SDE7666 TELE-C11) Document 07/17/19 13:33 RAX8800 (Rec: 07/17/19 13:33 MSW6774 TELE-C01) Document 07/17/19 17:54 QZG6298 (Rec: 07/17/19 17:54 XCU2853 TELE-C09) Document 07/18/19 09:00 PFL7698 (Rec: 07/18/19 09:10 YCD5359 TELE-C11) Document 07/18/19 13:52 MBL8415 (Rec: 07/18/19 13:53 VIS0029 TELE-C11) Document 07/18/19 18:00 BDI9762 (Rec: 07/18/19 19:07 GMF7430 TELE-C10) Document 07/19/19 09:00 LDC3284 (Rec: 07/19/19 10:22 OZZ0397 TELE-C10) Document 07/19/19 14:00 QLL2189 (Rec: 07/19/19 14:29 OAK8155 TELE-C10) Document 07/19/19 18:00 NYK4604 (Rec: 07/19/19 19:47 YQH6295 TELE-M18) Document 07/20/19 09:00 BJS0100 (Rec: 07/20/19 09:12 HBJ7759 TELE-C01) Document 07/20/19 14:00 TJX4443 (Rec: 07/20/19 16:08 RJD7551 TELE-C01) Document 07/20/19 18:00 XND2197 (Rec: 07/20/19 18:38 HKC6889 TELE-C01) Document 07/21/19 09:00 QDL8428 (Rec: 07/21/19 09:50 YWU3505 TELE-C01) Document 07/21/19 14:00 VIG7254 (Rec: 07/21/19 14:34 HJA9615 TELE-C01) Document 07/21/19 18:00 PBZ2423 (Rec: 07/21/19 21:46 MES8914 TELE-C06) Document 07/22/19 09:00 OYY6159 (Rec: 07/22/19 10:26 AEQ1147 TELE-C09) Document 07/22/19 14:00 UUJ1528 (Rec: 07/22/19 14:05 XYT7321 TELE-C09) Document 07/22/19 18:00 BMK0907 (Rec: 07/22/19 20:10 EMB7236 TELE-C07) Document 07/23/19 09:00 EYW3421 (Rec: 07/23/19 11:09 PCD2464 TELE-C07) Document 07/23/19 13:40 JKK9971 (Rec: 07/23/19 13:40 BRT6973 TELE-C07) Document 07/23/19 18:00 CHO6046 (Rec: 07/23/19 20:37 MEK8345 TELE-C03) Document 07/24/19 09:00 PLR6272 (Rec: 07/24/19 10:45 GNO6363 TELE-C07) Document 07/24/19 14:00 HFZ3473 (Rec: 07/24/19 14:26 OQW8661 TELE-C01) Document 07/24/19 17:28 PCO7773 (Rec: 07/24/19 17:28 JNM4326 TELE-C03) Document 07/25/19 09:00 IJM2512 (Rec: 07/25/19 16:06 BLZ4097 TELE-C03) Document 07/25/19 14:00 ULW2747 (Rec: 07/25/19 18:24 GWG4190 TELE-C01) Document 07/25/19 18:00 UYI1907 (Rec: 07/25/19 18:26 CED5007 TELE-C01) Document 07/26/19 09:00 CKN2287 (Rec: 07/26/19 10:57 SUI2047 TELE-C11) Document 07/26/19 14:00 EOQ4689 (Rec: 07/26/19 18:10 LHS3194 TELE-C01) Document 07/26/19 18:00 ASL0805 (Rec: 07/26/19 18:11 TKA1162 TELE-C01) Document 07/27/19 09:00 BNW7927 (Rec: 07/27/19 11:46 YGB6955 TELE-C08) Document 07/27/19 14:00 YQR0565 (Rec: 07/27/19 14:32 YWX9393 TELE-C01) Document 07/27/19 18:00 BEQ2617 (Rec: 07/27/19 18:50 YLT7698 TELE-C07) Document 07/28/19 09:00 REM1977 (Rec: 07/28/19 10:51 UQJ9597 MED-M26) Document 07/28/19 14:00 HZE0785 (Rec: 07/28/19 15:06 BXL7540 TELE-C09) Document 07/28/19 18:00 WRO7910 (Rec: 07/28/19 18:11 HPE5827 MED-M26) Document 07/29/19 09:00 AYQ2239 (Rec: 07/29/19 14:05 HAJ7580 TELE-C01) Document 07/29/19 14:00 ECU0302 (Rec: 07/29/19 14:05 FGO2125 TELE-C01) Document 07/29/19 18:00 SNH4009 (Rec: 07/29/19 18:29 PEP2864 TELE-C07) Document 07/30/19 09:00 TWY7578 (Rec: 07/30/19 09:37 HDD1073 TELE-C11) Document 07/30/19 14:00 SUF6613 (Rec: 07/30/19 14:16 VLY3269 TELE-C11) Document 07/30/19 17:21 MFU6021 (Rec: 07/30/19 17:22 WGX4946 TELE-C11) Document 07/31/19 08:45 DYR6967 (Rec: 07/31/19 08:45 QBH1273 TELE-C09) Document 07/31/19 14:00 EIV8772 (Rec: 07/31/19 14:07 TUP7010 TELE-C09) Document 07/31/19 18:00 HCP4406 (Rec: 07/31/19 18:28 SXN9106 MED-M27) Document 08/01/19 08:45 ACX2880 (Rec: 08/01/19 08:45 OYV8676 TELE-C07) Document 08/01/19 13:19 PBZ3386 (Rec: 08/01/19 13:19 WLX1035 TELE-C09) Document 08/01/19 18:00 BQY6267 (Rec: 08/01/19 23:05 QBV0619 TELE-C13) Document 08/02/19 09:00 UUU9237 (Rec: 08/02/19 15:16 DSX2860 TELE-C09) Document 08/02/19 14:00 ZEZ3496 (Rec: 08/02/19 15:18 EPA7246 TELE-C09) Document 08/02/19 18:00 EBJ9019 (Rec: 08/02/19 19:58 SGV3482 TELE-C11) Document 08/03/19 09:00 IAD6535 (Rec: 08/03/19 10:29 LBI7704 TELE-C06) Document 08/03/19 14:00 KLL0484 (Rec: 08/03/19 14:34 VHV0373 TELE-C07) Document 08/03/19 18:00 NAQ2483 (Rec: 08/03/19 19:57 UJV4228 TELE-C03) Document 08/04/19 09:00 KPE4875 (Rec: 08/04/19 09:17 CIE4274 TELE-C11) Intake and Output Start: 07/13/19 18: 13 Freq: DAILY@0600,1400,2200 Status: Active Protocol: Created 07/13/19 18:13 System (Rec: 07/13/19 18:13 System TELE-C15) Document 07/14/19 14:05 ONM6013 (Rec: 07/14/19 14:06 NEQ2735 TELE-M06) Document 07/14/19 21:43 BQH5481 (Rec: 07/14/19 21:45 JGR3610 TELE-C07) Document 07/15/19 05:58 UOO8373 (Rec: 07/15/19 06:01 TFN2265 TELE-C07) Document 07/15/19 13:32 XUK6863 (Rec: 07/15/19 13:32 AOQ8183 TELE-C09) Document 07/15/19 21:28 XZS6463 (Rec: 07/15/19 21:29 VNM8201 TELE-C05) Document 07/16/19 06:00 NUW0663 (Rec: 07/16/19 06:20 LTK2329 TELE-C09) Document 07/16/19 13:55 NOV6552 (Rec: 07/16/19 13:55 FJE3596 TELE-C11) Document 07/16/19 22:00 HPQ5667 (Rec: 07/16/19 22:18 EAW6927 TELE-C10) Document 07/17/19 06:00 AYF4949 (Rec: 07/17/19 06:50 UVL6071 TELE-M06) Document 07/17/19 09:34 JFR0846 (Rec: 07/17/19 09:34 NIO9694 TELE-C11) Document 07/17/19 14:00 IYO9493 (Rec: 07/17/19 14:12 MZQ2021 TELE-C10) Document 07/17/19 22:00 OKY9755 (Rec: 07/18/19 00:03 LAK9970 TELE-C06) Document 07/18/19 06:00 AVE5547 (Rec: 07/18/19 06:21 KYH6225 TELE-C06) Document 07/18/19 13:52 CLA9532 (Rec: 07/18/19 13:53 PWD6123 TELE-C11) Document 07/18/19 22:00 FMB5882 (Rec: 07/18/19 22:37 XUS6084 TELE-C10) Document 07/19/19 05:51 HTE5994 (Rec: 07/19/19 05:52 PQQ0750 TELE-C05) Document 07/19/19 10:00 JPJ3013 (Rec: 07/19/19 20:06 KRR1771 TELE-C11) Document 07/19/19 14:00 RBA5699 (Rec: 07/19/19 14:29 JFY9731 TELE-C10) Document 07/19/19 22:00 DBG6883 (Rec: 07/19/19 22:29 WHK0118 TELE-C05) Document 07/20/19 05:53 AOO7671 (Rec: 07/20/19 05:54 JIG5746 TELE-C13) Document 07/20/19 14:00 VOA1356 (Rec: 07/20/19 16:07 AGZ5899 TELE-C05) Document 07/20/19 22:00 ZPT1888 (Rec: 07/20/19 22:50 IZP3963 TELE-C09) Document 07/21/19 06:00 EQV4245 (Rec: 07/21/19 06:40 VLS9463 TELE-C10) Document 07/21/19 12:46 HQL9160 (Rec: 07/21/19 12:46 SCI5235 TELE-C10) Document 07/21/19 22:00 LQN3467 (Rec: 07/21/19 22:30 VUW5888 TELE-C06) Document 07/21/19 22:15 UTX9489 (Rec: 07/21/19 23:06 UHG4015 TELE-C10) Document 07/22/19 06:00 YFB5368 (Rec: 07/22/19 06:22 SBT4937 TELE-C06) Document 07/22/19 14:00 OSJ4356 (Rec: 07/22/19 14:43 OEQ9613 TELE-C09) Document 07/22/19 22:00 RHH5981 (Rec: 07/22/19 22:22 CFN3427 TELE-C07) Document 07/23/19 06:00 YZB7873 (Rec: 07/23/19 06:20 IPR2493 TELE-C07) Document 07/23/19 14:00 OMT1018 (Rec: 07/23/19 14:09 EJR7692 TELE-C13) Document 07/23/19 22:00 XYM7168 (Rec: 07/23/19 22:20 LTP6488 TELE-C03) Document 07/24/19 05:34 XVB0921 (Rec: 07/24/19 05:34 RTK8934 TELE-C06) Document 07/24/19 10:50 KHP5706 (Rec: 07/24/19 10:50 GVV3341 TELE-C07) Document 07/24/19 14:00 PLL0106 (Rec: 07/24/19 14:26 GJK0544 TELE-C01) Document 07/24/19 21:27 LPK8418 (Rec: 07/24/19 21:29 SKE1335 TELE-C08) Document 07/25/19 05:30 BWH5079 (Rec: 07/25/19 05:34 WIC3982 TELE-C06) Document 07/25/19 14:00 DOF9550 (Rec: 07/25/19 18:25 OLV5375 TELE-C01) Document 07/25/19 22:00 DVN1995 (Rec: 07/26/19 01:00 CKS8581 TELE-C33) Document 07/26/19 06:00 NPP9933 (Rec: 07/26/19 06:32 WQL5597 TELE-C11) Document 07/26/19 14:00 LEB3461 (Rec: 07/26/19 18:38 PAJ8579 TELE-C01) Document 07/26/19 22:00 ISG8074 (Rec: 07/27/19 06:52 ZNK7298 TELE-C10) Document 07/27/19 06:00 WMO0874 (Rec: 07/27/19 06:57 VWF1206 TELE-C10) Document 07/27/19 14:00 CWD6119 (Rec: 07/27/19 15:53 TKU8983 TELE-C08) Document 07/27/19 22:00 ECJ2917 (Rec: 07/27/19 22:19 MCI6197 TELE-C07) Document 07/28/19 06:00 ZHO3705 (Rec: 07/28/19 07:09 PJA4999 TELE-C07) Document 07/28/19 12:53 JDD2526 (Rec: 07/28/19 12:53 HNM2993 MED-M01) Document 07/28/19 22:00 RAV8280 (Rec: 07/28/19 22:24 PFX3044 TELE-C09) Document 07/29/19 06:00 YJS9613 (Rec: 07/29/19 06:45 QDN0733 TELE-C09) Document 07/29/19 14:00 JGN4800 (Rec: 07/29/19 14:52 WAX3081 TELE-C01) Document 07/29/19 22:00 GNZ8046 (Rec: 07/29/19 22:16 QFY0034 TELE-C07) Document 07/30/19 05:07 SME7807 (Rec: 07/30/19 05:08 TRL7835 TELE-C10) Document 07/30/19 14:00 AQU6463 (Rec: 07/30/19 14:34 XRJ0572 TELE-C11) Document 07/30/19 22:00 TED6942 (Rec: 07/31/19 00:47 EPX6206 TELE-C07) Document 07/31/19 06:00 JVJ2067 (Rec: 07/31/19 06:21 YHP7865 TELE-C07) Document 07/31/19 14:00 CSN9700 (Rec: 07/31/19 14:07 TIX2680 TELE-C09) Document 07/31/19 21:46 ISF5568 (Rec: 07/31/19 21:46 KVZ6149 TELE-C05) Document 08/01/19 06:00 SLT5167 (Rec: 08/01/19 06:06 OFF2000 TELE-C33) Document 08/01/19 13:19 QPP0589 (Rec: 08/01/19 13:19 HHE6646 TELE-C09) Document 08/01/19 22:00 CYA2007 (Rec: 08/02/19 01:13 UWN2404 TELE-C09) Document 08/02/19 06:00 HKL9233 (Rec: 08/02/19 06:32 BVN6642 TELE-C11) Document 08/02/19 14:00 OWY8982 (Rec: 08/02/19 15:18 HYW3477 TELE-C09) Document 08/02/19 20:07 FOL1486 (Rec: 08/02/19 20:09 PPW5258 TELE-C11) Document 08/03/19 00:30 MFT3592 (Rec: 08/04/19 06:23 DXD0954 TELE-M03) Document 08/03/19 06:00 OKN9764 (Rec: 08/03/19 06:24 NJO3902 TELE-C03) Document 08/03/19 12:33 (Rec: 08/03/19 12:33 TELE-C07) Document 08/03/19 14:00 (Rec: 08/03/19 14:34 TELE-C07) Document 08/03/19 22:00 ZNN9365 (Rec: 08/03/19 22:10 DMU1984 TELE-C03) Document 08/03/19 22:00 (Rec: 08/04/19 06:21 TELE-M03) - Physical Exam General Physical Exam Comment: I am able to wake her up,but she is not conversational or able to account for herself. General: No Cyanosis, Yes Anemia, No Jaundice, No Clubbing Lungs and Chest: Yes: Chest Expansion Symetrica, Vessicular Breath Sounds. No: Chest Expansion Full, Crackles, Wheezes, Respiratory Distress, Use of Accessory Muscles Heart Rate and Rhythm: Regular Additional Cardiovascular: Yes: Normal Heart Sounds, Heart Murmur. No: Pedal Edema Abdominal Exam: Yes: Soft, Abdominal Tenderness - suprapubic and lower quadrants , Bowel Sounds Present. No: Distention, Guarding, Rebound Tenderness Results - Results Lab Results: Laboratory Results - last 24 hr 08/04/19 08/04/19 04:54 04:54 WBC 8.6 RBC 3.44 L Hgb 9.9 L Hct 30 L MCV 86 MCH 29 MCHC 33 RDW 15 Plt Count 522 H MPV 7.6 Neut % (Auto) 79.8 Lymph % (Auto) 8.2 Stearns % (Auto) 5.1 Eos % (Auto) 6.0 Baso % (Auto) 0.9 Absolute Neuts (auto) 6.9 Absolute Lymphs (auto) 0.7 L Absolute Monos (auto) 0.4 Absolute Eos (auto) 0.5 Absolute Basos (auto) 0.1 Absolute Nucleated RBC 0.0 Nucleated RBC % 0.0 Sodium 139 Potassium 3.4 L Chloride 94 L Carbon Dioxide 36 H Anion Gap 9 BUN 16 Creatinine 0.70 Est GFR ( Amer) 95.8 Est GFR (Non-Af Amer) 79.2 BUN/Creatinine Ratio 22.9 H Glucose 113 H Calcium 9.0 C-Reactive Protein 184.80 H Assessment - Problem List Assessment: Patient Problems Altered mental state (Acute) Aortic stenosis (Acute) Atrial fibrillation with RVR (Acute) CRP elevated (Acute) Congestive heart failure, acute (Acute) Pleural effusion (Acute) Uterine mass (Acute) Anemia (Chronic) DVT prophylaxis (Chronic) Depression (Chronic) Essential hypertension (Chronic) Failure to thrive (Chronic) History of CVA (cerebrovascular accident) (Chronic) Physical deconditioning (Chronic) Severe protein-calorie malnutrition (Chronic) Type 2 diabetes mellitus (Chronic) Plan: Altered mental state (Acute) She remains mostly asleep and is not rousable for long. She is unable to provide any useful history or answer direct questions. Uterine mass (Acute)CRP elevated (Acute)Leukocytosis (Acute) She has tenderness in this region. I note she has had a drop in her WBC, %neutrophils and CRP. Congestive heart failure, acute (Acute) Aortic stenosis (Acute)Pleural effusion (Acute) I cut back on her furosemide as she is not having much fluid in. It looks like she had a net negative balance yesterday. Atrial fibrillation with RVR (Acute) no longer a problem Anemia (Chronic) Resolved: Comorbidities: Pneumonia (Acute) Urinary tract infection (Acute) resolved secondary diagnoses DVT prophylaxis (Chronic) Depression (Chronic) Essential hypertension (Chronic) Failure to thrive (Chronic) History of CVA (cerebrovascular accident) (Chronic) Physical deconditioning (Chronic) Severe protein-calorie malnutrition (Chronic) Type 2 diabetes mellitus (Chronic) Phone call to Nicholas Haywood (nephew/Proxy) - He did not reply
[2019-08-04] MEDS: Ferrous Sulfate TAB* 325 MG PO SCH (10:56)
[2019-08-04] MEDS: Cyanocobalamin TAB* 500 MCG PO SCH (10:57)
[2019-08-04] MEDS: Metoprolol Succinate XL TAB* 50 MG PO SCH ×2 (10:57→21:43)
[2019-08-04] MEDS: Digoxin TAB* 0.125 MG PO SCH (10:58)
[2019-08-04] MEDS: Potassium Chlor TAB* 20 MEQ TAB.ER PO SCH ×2 (10:59→21:44)
[2019-08-04] MEDS: Escitalopram * 10 MG TAB PO SCH (10:59)
[2019-08-04] MEDS: Senna TAB 8.6 mg* TAB PO SCH (21:44)
[2019-08-05] MEDS: ZOSYN 3.375 GM Q8H per EXTENDED INFUSION IVPB SCH ×4 (02:19→08:24)
[2019-08-05 06:21] LABS: ABS Eosinophils 0.4 10^3/ul (0-0.6); ABS Monocytes 0.5 10^3/ul (0-0.8); ABS Neutrophils 6.4 10^3/ul (1.5-7.7); Eosinophil % 4.8 %; Hematocrit 28 % (35-47); Hemoglobin 9.1 g/dL (12.0-16.0); Lymphocyte % 11.4 %; Mean Corpuscular HGB Conc 33 g/dL (31-36); Mean Corpuscular Hemoglobin 28 pg (27-31); Mean Corpuscular Volume 86 fL (80-97); Mean Platelet Volume 7.6 fL (7.4-10.4); Platelet Count 494 10^3/uL (150-450); Red Blood Count 3.28 10^6 /uL (3.70-4.87); Red Cell Distribution Width 15 % (10-15); White Blood Count 8.3 10^3/uL (3.5-10.8)
[2019-08-05 06:40] LABS: BUN/Creatinine Ratio 29.1 (8-20); C Reactive Protein 136.16 mg/L (<8.01); Calcium 8.5 mg/dL (8.6-10.3); EGFR African American 126.5 (>60); EGFR Non-African American 104.6 (>60)
[2019-08-05] MEDS: Escitalopram * 10 MG TAB PO SCH (08:22)
[2019-08-05] MEDS: CMC:Rosuvastatin (NF) 5 MG TAB PO SCH (08:22)
[2019-08-05] MEDS: Cyanocobalamin TAB* 500 MCG PO SCH (08:23)
[2019-08-05] MEDS: Metoprolol Succinate XL TAB* 50 MG PO SCH ×2 (08:23→21:33)
[2019-08-05] MEDS: Digoxin TAB* 0.125 MG PO SCH (08:23)
[2019-08-05] MEDS: Potassium Chlor TAB* 20 MEQ TAB.ER PO SCH ×2 (08:24→21:34)
[2019-08-05] MEDS: Furosemide TAB* 20 MG PO SCH (09:19)
[2019-08-05] MEDS: Apixaban* 2.5 MG TAB PO SCH ×2 (09:19→21:34)
[2019-08-05] MEDS: cefTRIAXone(*) 1 GM in NS 0.9% 50 ML* 50 ML IVPB SCH (15:29)
[2019-08-05] MEDS: Senna TAB 8.6 mg* TAB PO SCH (21:33)
[2019-08-06] MEDS: Apixaban* 2.5 MG TAB PO SCH ×2 (10:33→20:09)
[2019-08-06] MEDS: Cyanocobalamin TAB* 500 MCG PO SCH (10:33)
[2019-08-06] MEDS: Furosemide TAB* 20 MG PO SCH (10:33)
[2019-08-06] MEDS: Potassium Chlor TAB* 20 MEQ TAB.ER PO SCH ×2 (10:33→20:09)
[2019-08-06] MEDS: Ferrous Sulfate TAB* 325 MG PO SCH (10:33)
[2019-08-06] MEDS: Metoprolol Succinate XL TAB* 50 MG PO SCH ×2 (10:33→20:08)
[2019-08-06] MEDS: Digoxin TAB* 0.125 MG PO SCH (10:33)
[2019-08-06] MEDS: Escitalopram * 10 MG TAB PO SCH (10:33)
[2019-08-06 13:06] LABS: Hematocrit 29 % (35-47); Hemoglobin 9.5 g/dL (12.0-16.0); Mean Corpuscular HGB Conc 33 g/dL (31-36); Mean Corpuscular Hemoglobin 28 pg (27-31); Mean Corpuscular Volume 86 fL (80-97); Mean Platelet Volume 7.4 fL (7.4-10.4); Platelet Count 576 10^3/uL (150-450); Red Blood Count 3.41 10^6 /uL (3.70-4.87); Red Cell Distribution Width 15 % (10-15); White Blood Count 7.7 10^3/uL (3.5-10.8)
[2019-08-06 13:25] LABS: Albumin 2.8 g/dL (3.2-5.2); Albumin/Globulin Ratio 0.7 (1-3); BUN/Creatinine Ratio 20.7 (8-20); C Reactive Protein 119.34 mg/L (<8.01); Calcium 8.9 mg/dL (8.6-10.3); EGFR Non-African American 98.3 (>60); Globulin 3.8 g/dL (2-4); Potassium 4.1 mmol/L (3.5-5.0); Total Bilirubin 0.4 mg/dL (0.2-1.0); Total Protein 6.6 g/dL (6.4-8.9)
[2019-08-06 13:27] LABS: ABS Eosinophils 0.2 10^3/ul (0-0.6); ABS Lymphocytes 1.2 10^3/ul (1.0-4.8); ABS Monocytes 0.6 10^3/ul (0-0.8); ABS Neutrophils 5.7 10^3/ul (1.5-7.7); Eosinophil % 2.5 %; Lymphocyte % 15.2 %
[2019-08-06 13:47] LABS: Digoxin 0.8 ng/ml (0.8-2.0)
[2019-08-06] MEDS: cefTRIAXone(*) 1 GM in NS 0.9% 50 ML* 50 ML IVPB SCH (16:26)
[2019-08-06] MEDS: Senna TAB 8.6 mg* TAB PO SCH (19:58)
[2019-08-06] MEDS: Acetaminophen TAB* 325 MG PO PRN (20:08)
[2019-08-07] MEDS ORDERED: Ferrous Sulfate TAB* 325 MG PO SCH (09:00)
[2019-08-07] MEDS: Escitalopram * 10 MG TAB PO SCH (09:19)
[2019-08-07] MEDS: Potassium Chlor TAB* 20 MEQ TAB.ER PO SCH ×2 (09:20→20:30)
[2019-08-07] MEDS: Digoxin TAB* 0.125 MG PO SCH (09:20)
[2019-08-07] MEDS: Metoprolol Succinate XL TAB* 50 MG PO SCH ×2 (09:21→20:29)
[2019-08-07] MEDS: Apixaban* 2.5 MG TAB PO SCH ×2 (09:21→20:30)
[2019-08-07] MEDS: Cyanocobalamin TAB* 500 MCG PO SCH (09:21)
[2019-08-07] MEDS: Furosemide TAB* 20 MG PO SCH (09:21)
[2019-08-07] MEDS: CMC:Rosuvastatin (NF) 5 MG TAB PO SCH (09:21)
[2019-08-07] MEDS: Acetaminophen TAB* 325 MG PO PRN (09:22)
--- NOTE | 2019-08-07 10:04 | PN ---
Subjective Date of Service: 08/07/19 Interval History: Coverage note for Dr. Finnegan. No acute events overnight. CT performed yesterday for AMS, notable only for atrophy with chronic ischemic change in old infact in the left frontal temporal lobe. Patient oriented to self, only. She did not realize it was [place] (thought November) and knew, with prompting, that she was in a medical building. She reports lower abdominal discomfort. Denies other pain, dyspnea, dysuria. Objective Active Medications: Acetaminophen (Tylenol Tab*) 650 mg PO Q4H PRN PRN Reason: MILD PAIN or TEMP > 100.4 Last Admin: 08/07/19 09:22 Dose: 650 mg Apixaban (Eliquis*) 2.5 mg PO BID [facility] Last Admin: 08/07/19 09:21 Dose: 2.5 mg Cyanocobalamin (Vitamin B12 Tab*) 1,000 mcg PO QAM [facility] Last Admin: 08/07/19 09:21 Dose: 1,000 mcg Digoxin (Lanoxin Tab*) 0.125 mg PO 0900 [facility] Last Admin: 08/07/19 09:20 Dose: 0.125 mg Escitalopram Oxalate (Lexapro *) 15 mg PO DAILY [facility] Last Admin: 08/07/19 09:19 Dose: 15 mg Ferrous Sulfate (Ferrous Sulfate Tab*) 325 mg PO Q48H [facility] Last Admin: 08/07/19 09:23 Dose: 325 mg Furosemide (Lasix Tab*) 20 mg PO DAILY [facility] Last Admin: 08/07/19 09:21 Dose: 20 mg Heparin Sodium (Porcine) (Heparin Flush Picc/Ml/Cvc(*)) 1 - 3 ml FLUSH 0600, 1800 [facility]; Protocol Last Admin: 08/07/19 05:02 Dose: 1 ml Ceftriaxone Sodium 1 gm/ (Sodium Chloride) 50 mls @ 100 mls/hr IVPB Q24H [facility] Last Admin: 08/06/19 16:26 Dose: 100 mls/hr Magnesium Hydroxide (Milk Of Magnesia Liq*) 30 ml PO Q6H PRN PRN Reason: CONSTIPATION Metoprolol Succinate (Toprol Xl Tab*) 75 mg PO BID [facility] Last Admin: 08/07/19 09:21 Dose: 75 mg Miscellaneous (Ativan Pyxis [place]) 1 ea N/A .ATIVAN IV [place] PRN PRN Reason: PYXIS [place] Potassium Chloride (Klor Con Er Tab*) 20 meq PO BID [facility] Last Admin: 08/07/19 09:20 Dose: 20 meq Rosuvastatin Calcium (Crestor (Nf)) 5 mg PO MoWeFr@0900 [facility]; Protocol Last Admin: 08/07/19 09:21 Dose: 5 mg Senna (Senokot 8.6 Mg Tab*) 1 tab PO BEDTIME [facility] Last Admin: 08/06/19 19:58 Dose: Not Given Vital Signs - 8 hr 08/07/19 08/07/19 08/07/19 04:21 07:15 08:00 Temperature 97.5 F 97.7 F Pulse Rate 70 69 Respiratory 16 16 16 Rate Blood Pressure 138/68 129/54 (mmHg) O2 Sat by Pulse 95 97 97 Oximetry 08/07/19 09:20 Temperature Pulse Rate 100 Respiratory Rate Blood Pressure (mmHg) O2 Sat by Pulse Oximetry Oxygen Devices in Use Now: None Appearance: frail appearing elderly woman in NAD Eyes: No Scleral Icterus Ears/Nose/Mouth/Throat: Clear Oropharnyx, Mucous Membranes Moist Neck: NL Appearance and Movements; NL JVP, Trachea Midline Respiratory: Symmetrical Chest Expansion and Respiratory Effort, Clear to Auscultation Cardiovascular: RRR Extremities: No Edema Neurological: - - alert and interactive, oriented only to self Result Diagrams: 08/06/19 12:58 08/06/19 12:58 Assess/Plan/Problems-Billing Assessment: Ms. Martinez is an 89 year old woman with history of CVA, HTN, afib on Eliquis, SSS s/p PPM, GERD, PVD, type 2 DM, depression, who was brought in by her nephew with concerns of inability to care for self and failure to thrive. She was found to be in Afib RVR, and found to have a UTI and postmenopausal bleeding with thickened endometrial stripe. Continues to be treated with antibiotics, perhaps due to elevated CRP and concern over necrosis in thickened endometrium? - Zosyn (07/18 - 08/05), now CTX (08/05 - ) Postmenopausal bleeding: Suspect caner. Uterus biopsied on 08/01, still pending pathology results. Afib: On metoprolol, digoxin, and Eliquis MDD: On escitalopram. HFpEF: On furosemide. Anemia: Likely from blood loss. On qod iron PO. DVT ppx with Eliquis for afib. DNR. Status and Disposition: Change to inpatient.
[2019-08-07] MEDS: cefTRIAXone(*) 1 GM in NS 0.9% 50 ML* 50 ML IVPB SCH (16:36)
[2019-08-07] MEDS: Senna TAB 8.6 mg* TAB PO SCH (20:51)
--- NOTE | 2019-08-08 09:43 | PN ---
Subjective Date of Service: 08/08/19 Interval History: No acute events overnight. Still pending biopsy results. Patient more alert, sitting at bedside, surprised to know she is still in the hospital. Seems ok [facility], although likely low comprehension and poor memory. Nephew updated and agrees with plan. Objective Active Medications: Acetaminophen (Tylenol Tab*) 650 mg PO Q4H PRN PRN Reason: MILD PAIN or TEMP > 100.4 Last Admin: 08/07/19 09:22 Dose: 650 mg Apixaban (Eliquis*) 2.5 mg PO BID [facility] Last Admin: 08/07/19 20:30 Dose: 2.5 mg Cyanocobalamin (Vitamin B12 Tab*) 1,000 mcg PO QAM [facility] Last Admin: 08/07/19 09:21 Dose: 1,000 mcg Digoxin (Lanoxin Tab*) 0.125 mg PO 0900 [facility] Last Admin: 08/07/19 09:20 Dose: 0.125 mg Escitalopram Oxalate (Lexapro *) 15 mg PO DAILY [facility] Last Admin: 08/07/19 09:19 Dose: 15 mg Ferrous Sulfate (Ferrous Sulfate Tab*) 325 mg PO Q48H [facility] Last Admin: 08/07/19 09:23 Dose: 325 mg Furosemide (Lasix Tab*) 20 mg PO DAILY [facility] Last Admin: 08/07/19 09:21 Dose: 20 mg Heparin Sodium (Porcine) (Heparin Flush Picc/Ml/Cvc(*)) 1 - 3 ml FLUSH 0600, 1800 [facility]; Protocol Last Admin: 08/08/19 05:51 Dose: 1 ml Ceftriaxone Sodium 1 gm/ (Sodium Chloride) 50 mls @ 100 mls/hr IVPB Q24H [facility] Last Admin: 08/07/19 16:36 Dose: 100 mls/hr Magnesium Hydroxide (Milk Of Magnesia Liq*) 30 ml PO Q6H PRN PRN Reason: CONSTIPATION Metoprolol Succinate (Toprol Xl Tab*) 75 mg PO BID [facility] Last Admin: 08/07/19 20:29 Dose: 75 mg Miscellaneous (Ativan Pyxis Ochoa) 1 ea N/A .ATIVAN IV OCHOA PRN PRN Reason: PYXIS OCHOA Potassium Chloride (Klor Con Er Tab*) 20 meq PO BID [facility] Last Admin: 08/07/19 20:30 Dose: 20 meq Rosuvastatin Calcium (Crestor (Nf)) 5 mg PO MoWeFr@0900 [facility]; Protocol Last Admin: 08/07/19 09:21 Dose: 5 mg Senna (Senokot 8.6 Mg Tab*) 1 tab PO BEDTIME [facility] Last Admin: 08/07/19 20:51 Dose: Not Given Vital Signs - 8 hr 08/08/19 08/08/19 08/08/19 03:15 07:25 08:00 Temperature 97.9 F 97 F Pulse Rate 75 76 Respiratory 20 12 16 Rate Blood Pressure 125/44 120/51 (mmHg) O2 Sat by Pulse 100 99 Oximetry Oxygen Devices in Use Now: None Appearance: frail-appearing elderly woman in NAD, sitting in chair at bedside, alert and interactive Eyes: No Scleral Icterus Ears/Nose/Mouth/Throat: Clear Oropharnyx, Mucous Membranes Moist Neck: Trachea Midline Respiratory: Symmetrical Chest Expansion and Respiratory Effort, Clear to Auscultation Cardiovascular: - - irreg irreg Abdominal: - - abd soft, mild suprapubic tenderness, no organomegaly Extremities: No Edema Skin: No Rash or Ulcers Neurological: - - AOx1 (self) - Nutrition: Malnutrition Diagnosis/Plan Malnutrition Assessment by Registered Dietitian: Malnutrition Assessment Clinical Characteristics Chronic,Severe Malnutrition Assessment: Muscle Wasting - Temporal (moderate-severe) Criteria Inadequate Oral Intake - Pt noted w/ poor intake ; consumed 0% B this AM - Anticipate meeting < 75 % nutrient needs >1 mo (severe) Unintentional Weight Loss - Pt noted w/ wt loss per records; current wt 101lb, prev wt on record 128lb (06/2019) - 21% loss x1 yr (severe) Underweight - BMI 16.8 Malnutrition Assessment: Nutritional Supplementals/Nourishments - Will Interventions trial Glucerna (220kcal, 10g prot/serv) w/ B, L , and D to optimize kcal/prot intake; will monitor acceptance GI Related - Will monitor GI s/sx for impact on intake Glycemic Control - Given inadequate oral intake , consistent carb diet not indicated at this time ; will continue to monitor BG/FS in the setting of T2DM Malnutrition Assessment: Goals 1) Recommend liberalizing diet to regular unrestricted 2) Adequate po intake to replete lean body mass , support wt gain and hydration status 3) Improve fluid/electrolyte balance w/ adequate po intake and repletion PRN 4) Maintain glycemic control w/ adequate po intake w/o need for dietary restriction in the setting of T2DM 5) Maintain bowel regularity w/ adequate po intake w/o development of diarrhea/constipation Result Diagrams: 08/06/19 12:58 08/06/19 12:58 Microbiology and Other Data: Microbiology 07/21/19 13:50 Gram Stain - Final Pleural Fluid Body Fluid Culture - Final No Growth Day 4 07/15/19 00:42 Aerobic Blood Culture - Final Blood Venous No Growth Day 5 Anaerobic Blood Culture - Final No Growth Day 5 07/15/19 00:42 Aerobic Blood Culture - Final Blood Venous No Growth Day 5 Anaerobic Blood Culture - Final No Growth Day 5 07/14/19 08:04 Urine Culture - Final Urine Escherichia Coli Proteus Mirabilis Assess/Plan/Problems-Billing Assessment: Ms. Martinez is an 89 year old woman with history of CVA, HTN, afib on Eliquis, SSS s/p PPM, GERD, PVD, type 2 DM, depression, who was brought in by her nephew with concerns of inability to care for self and failure to thrive. She was found to be in Afib RVR, and found to have a UTI and postmenopausal bleeding with thickened endometrial stripe. Continues to be treated with antibiotics, perhaps due to elevated CRP and concern over necrosis in thickened endometrium? - Zosyn (07/18 - 08/05), now CTX (08/05 - ) Postmenopausal bleeding: Suspect caner. Uterus biopsied on 08/01, still pending pathology results. Afib: On metoprolol, digoxin, and Eliquis MDD: On escitalopram. HFpEF: On furosemide. Anemia: Likely from blood loss. On qod iron PO. DVT ppx with Eliquis for afib. DNR. Status and Disposition: Change to inpatient.
[2019-08-08] MEDS: Metoprolol Succinate XL TAB* 50 MG PO SCH (10:05)
[2019-08-08] MEDS: Escitalopram * 10 MG TAB PO SCH (10:06)
[2019-08-08] MEDS: Apixaban* 2.5 MG TAB PO SCH (10:07)
[2019-08-08] MEDS: Digoxin TAB* 0.125 MG PO SCH (10:08)
[2019-08-08] MEDS: Cyanocobalamin TAB* 500 MCG PO SCH (10:08)
[2019-08-08] MEDS: Furosemide TAB* 20 MG PO SCH (10:09)
[2019-08-08] MEDS: Potassium Chlor TAB* 20 MEQ TAB.ER PO SCH (10:09)
[2019-08-08] MEDS: cefTRIAXone(*) 1 GM in NS 0.9% 50 ML* 50 ML IVPB SCH (15:28)
[2019-08-08 15:42] VITALS: BP 152/62
--- NOTE | 2019-08-08 15:58 | DS ---
CC: Dr. Mireya Finnegan; Santos Browne MD; Keely Morris MD; Chelita Roberson MD; Mateo Chilel MD; Rosalino Corona MD; Anand Hager MD* DISCHARGE SUMMARY: DATE OF ADMISSION: 07/13/19 DATE OF DISCHARGE: 08/08/19 PRIMARY CARE PHYSICIAN: Dr. Mireya Finnegan. PRIMARY DIAGNOSES: 1. Postmenopausal bleeding with concern for cancer. 2. Urinary tract infection. 3. Atrial fibrillation with rapid ventricular rate. 4. Altered mental status. 5. Possible dementia. SECONDARY DIAGNOSES: 1. Sick sinus syndrome, status post pacemaker. 2. History of cerebrovascular accident and stroke. 3. Hypertension. 4. Gastroesophageal reflux disease. 5. Major depressive disorder. 6. Diabetes type 2, on diet. 7. Osteoarthritis. 8. History of myocardial infarction. 9. Heart failure, preserved ejection fraction. CONSULTS: Santos Browne MD, of Psychiatry; Keely Morris MD, of Palliative Care; Chelita Roberson MD, of Pulmonology; Mateo Chilel MD, of Infectious Disease; Rosalino Corona MD, of Cardiology; Anand Hager MD, of Gynecology. PROCEDURES: Thoracentesis with ultrasound guidance on the right on 07/21/19. D and C with Gynecology on 08/01/19. DISCHARGE MEDICATIONS: 1. Ceftriaxone 1 g daily IV. 2. Apixaban 2.5 mg twice a day. 3. Furosemide 20 mg daily. 4. Potassium 20 mEq twice a day. 5. Digoxin 125 mcg daily. 6. Metoprolol 50 mg at bedtime. 7. Rosuvastatin 5 mg every other day at bedtime. 8. Escitalopram 10 mg daily. 9. Ranitidine 75 mg daily as needed for reflux. 10. Ferrous sulfate 325 mg every other day. 11. Tylenol 500 mg twice a day as needed for pain. 12. Maalox 30 mL every 6 hours as needed for indigestion. 13. Vitamin C 1000 mg daily to be taken with iron. 14. Vitamin D 2000 units daily. 15. Vitamin B12 1000 mcg sublingual in the morning. 16. Glucosamine 1 g twice a day. 17. Turmeric 500 mg daily. 18. Milk of magnesia 30 mL every 6 hours as needed for constipation. 19. Senna 1 tablet at bedtime. HISTORY OF PRESENT ILLNESS AND HOSPITAL COURSE: Ms. Martinez is an 89-year-old woman with atrial fibrillation, on Eliquis; sick sinus syndrome, status post pacemaker; history of CVA and TIA; hypertension; depression who was brought in by her nephew for inability to care for herself at home. Her nephew is her primary caregiver and on the [employer] and stated that the patient has not been taking her medications for some time and that the patient has also not been eating. The nephew noticed a gradual decline in her health and her inability to care for herself for the last 2 months. The nephew and niece have been offering to take the patient out to breakfast which is the only way they could consent to having her take a shower and perform other hygiene routines. The patient's neighbor, Mireya Mcmullen, is a nurse petitioner has also been caring for the patient which included doing dishes and helping her around the house. Mireya Mcmullen provided additional information that the patient stopped taking her medications and eating because she did not want to go to a correction and she heard that she may have to go to a correction because of her failure to thrive. Mireya Mcmullen also stated that the patient has been experiencing vaginal bleeding due to uterine polyps and is supposed to have gone to [place] to undergo a D and C, but was not able to follow up. In the emergency room, the patient received a liter of IV fluids and had labs drawn which were notable for anemia to 11 with leukocytosis to 12, thrombocytosis to 497, and CRP of 167. Her urinalysis was concerning for infection, and eventually, she did grow E. coli and Proteus over 100,000 colony- forming units each, and she was started on Zosyn. An EKG performed at that time showed that she was in atrial fibrillation with RVR, which improved with fluids and beta-blockade. The patient was able to state that she had not eaten for a few days, but that her "mind was going" and she was saying a lot of nonsensical things and speaking tangentially. Her only complaint throughout admission was lower abdominal discomfort and pelvic pain as well as burning with urination. The patient was admitted to the hospitalist service for further management. Dr. Keely Morris of Palliative Care was consulted. A MOLST form was updated to include the patient's wish to be DNR/DNI. Decision was made with the family to pursue rehab on discharge. Dr. Browne of Psychiatry was also consulted for capacity for medical decision making and his assessment was that she failed to demonstrate a reasonable understanding of her illness in the events leading to her hospitalization, and therefore, she did not have capacity to make an informed decision about refusing placement, although this is something that may change in the future as her mental status improves. Per the patient's wishes, discussion with Palliative Care and nephew, decision was made for no CPR, no intubation nor feeding tube. The patient also declined noninvasive ventilation as it did not help her sister who had been in the ICU. Dr. Roberson of Pulmonology was consulted for evaluation of a pleural effusion seen on chest x-ray. A decision was made for thoracentesis of which 250 cc of pleural fluid was removed. The fluid was yellow and slightly turbid. There was no evidence for malignancy, but the fluid was lymphocytic predominant, so it was suspicious for possible parapneumonic effusion and she was continued on Zosyn which would treat both her UTI and pneumonia. The patient underwent a CT of her chest, abdomen, and pelvis which showed the known pleural effusions; a mixed attenuation mass in the pelvis, presumably a uterine mass, this should be assumed to be malignancy until proven otherwise. Dr. Hager of [facility] was consulted for concern for endometrial cancer. The patient underwent a D and C for biopsy on 08/01/19, and at the time of discharge, the pathology results are still pending. Dr. Mateo Chilel of Infectious Disease was consulted for the patient's persistent leukocytosis on Zosyn. It was thought that her pelvic mass might have areas of necrosis causing persistent elevation in white count and CRP, although the patient remained without focal signs of infection or fevers. It was thought the pelvic mass itself could be producing an inflammatory response and the patient was continued on Zosyn for a total of 18 days, then she was switched to ceftriaxone on 08/05/19 per recommendations by the infectious disease team. By day of discharge, the patient's leukocytosis had resolved. She remained afebrile throughout entire admission. Her CRP decreased to 119. The patient's mental status waxed and waned throughout admission, thought likely hospital-induced delirium in this elderly woman with multiple chronic medical problems and likely dementia. The patient was mostly oriented to herself, but daily would need prompting for the day and her location. Occasionally, she was found more somnolent and less interactive, but without intervention would return to her baseline of the being A and O x1. Her nephew, Nicholas, was updated daily on the patient's status and he was amenable to her being placed in [facility] with a plan to follow up with Dr. Finnegan for her primary care as well as shift production associate for biopsy results and Dr. Shan Chilel of Infectious Disease for her IV antibiotics. PERTINENT DIAGNOSTIC STUDIES: CBC notable for hemoglobin 9.5 with MCV 86 and platelets 576. BMP notable for creatinine 0.58. CRP 119. Brain CT on 08/06/19 with atrophy with chronic ischemic change and old infarct in the left frontal temporal lobe with encephalomalacia. No acute changes are noted. Chest x-ray on 08/06/19, two days prior to discharge, showed pacemaker leads in place, no pneumonia is identified, elevated right hemidiaphragm is noted, PICC line tip is in the superior vena cava. Transthoracic echocardiogram on 07/26/19 with LV systolic function normal with EF 50% to 55%. There is abnormal interventricular septal wall motion consistent with RV pacemaker. LA is severely dilated. RA is moderately dilated. A PFO was demonstrated by color Doppler. There is moderate mitral valve regurgitation. There is [id number] stenosis of the aortic valve, [id number] regurgitation of tricuspid valve. There is no pericardial effusion. Chest, abdomen, and pelvis CT on 07/25/19 with interval increase in size of bilateral pleural effusions, larger on the right. There is adjacent compressive atelectasis of the bilateral lower lobes. There is mixed attenuation mass in the pelvis, presumably a uterine mass. It is partially cystic, partially solid, measures 7.2 x 7.4 cm and up to 12.4 cm in the cephalocaudal dimension. There is additional chronic degenerative changes to the thoracic and lumbar spine including loss of intervertebral disk height at multiple levels. There are no sinister bone lesions. Pathology of the endometrium is still pending by day of discharge. DISCHARGE PLAN: The patient will be discharged to [facility] for rehabilitation. She should continue to follow up with her primary care physician, Dr. Mireya Finnegan, as well as by Dr. Mateo Chilel of Infectious Disease and Anand Hager of [facility] for followup of her biopsy results. For postmenopausal bleeding, she should follow up with pathology results as above. She will also be continued on iron every other day to take with vitamin C. The patient is DNR/DNI and it is likely per her nephew that she may wish to pursue hospice services if her biopsy results are positive for malignancy. For infection of unknown etiology, possibly inflammation from necrotic pelvic mass, she will be continued on ceftriaxone until she follows up in [facility] with Dr. Shan Chilel. She has already completed treatment for UTI and pneumonia. For her atrial fibrillation, she should continue metoprolol, digoxin, and apixaban. She should eat a healthy diet, low in carbohydrates, to continue diet control for her diabetes. She should resume activity as tolerated as per rehab facility. DISPOSITION: Jodie Barbosa. CONDITION: Fair. TIME SPENT: Apparently 60 minutes was spent on discharge of this patient, more than of which was spent with care coordination at bedside for interview and exam. [id number]/[facility] #: [id number] MTDD
== END 2019-08-08 16:57 | DRG 987 ==
LOC: ED 13:15 → MEDTELE 17:11 → OBSVTOIN 07-14 09:13
PROVIDERS: ADMIT Internal Medicine; ATTEND Internal Medicine
PROC: 0W993ZZ Drainage of Right Pleural Cavity, Percutaneous Approach (ICD-10-PCS; 2019-07-21)
PROC: 0UDB7ZZ Extraction of Endometrium, Via Natural or Artificial Opening (ICD-10-PCS; principal; 2019-08-01 17:45)
DX: N39.0 Urinary tract infection, site not specified (principal); J18.9 Pneumonia, unspecified organism; E43 Unspecified severe protein-calorie malnutrition; I50.31 Acute diastolic (congestive) heart failure; F34.9 Persistent mood [affective] disorder, unspecified; Z68.1 Body mass index [BMI] 19.9 or less, adult; I48.20 Chronic atrial fibrillation, unspecified; J90 Pleural effusion, not elsewhere classified; R62.7 Adult failure to thrive; N81.4 Uterovaginal prolapse, unspecified; N95.2 Postmenopausal atrophic vaginitis; N95.0 Postmenopausal bleeding; E78.00 Pure hypercholesterolemia, unspecified; M19.041 Primary osteoarthritis, right hand; M19.042 Primary osteoarthritis, left hand; G43.909 Migraine, unspecified, not intractable, without status migrainosus; F41.9 Anxiety disorder, unspecified; F32.9 Major depressive disorder, single episode, unspecified; I49.5 Sick sinus syndrome; K21.9 Gastro-esophageal reflux disease without esophagitis; C54.1 Malignant neoplasm of endometrium; N81.2 Incomplete uterovaginal prolapse; E11.51 Type 2 diabetes mellitus with diabetic peripheral angiopathy without gangrene; E83.42 Hypomagnesemia; E78.5 Hyperlipidemia, unspecified; Z66 Do not resuscitate; E86.0 Dehydration; D69.6 Thrombocytopenia, unspecified; F03.90 Unspecified dementia, unspecified severity, without behavioral disturbance, psychotic disturbance, mood disturbance, and anxiety; I50.9 Heart failure, unspecified; I11.0 Hypertensive heart disease with heart failure; B96.20 Unspecified Escherichia coli [E. coli] as the cause of diseases classified elsewhere; B96.4 Proteus (mirabilis) (morganii) as the cause of diseases classified elsewhere; I35.0 Nonrheumatic aortic (valve) stenosis; D50.0 Iron deficiency anemia secondary to blood loss (chronic); Z88.8 Allergy status to other drugs, medicaments and biological substances; Z86.73 Personal history of transient ischemic attack (TIA), and cerebral infarction without residual deficits; I25.2 Old myocardial infarction; Z88.6 Allergy status to analgesic agent; Z95.0 Presence of cardiac pacemaker; Z79.01 Long term (current) use of anticoagulants
CPT/HCPCS: 36415; 70450; 71045; 71046; 71260; 74176; 74177; 76604; 80048; 80053; 80162; 81003; 81015; 82140; 82607; 82728; 82746; 82945; 83036; 83540; 83550; 83605; 83615; 83735; 83880; 83986; 84100; 84134; 84157; 84443; 84484; 85025; 85652; 86140; 86304; 87040; 87070; 87077; 87086; 87186; 87205; 88112; 88305; 88341; 88342; 88360; 89051; 93005; 93306; 96360; 99284; A9270-GY; G8978-GP-CK; G8978-GP-CL; G8979-GP-CI; G8987-GO-CK; G8988-GO-CI; J0696; J1160; J1940; J2543; J2704; J3010; J3475; J3490; Q9967